=== PATIENT | female | born 1930 | race Caucasian/White ===

== ENCOUNTER → 2017-05-28 | Outpatient (CLI) | payer OTHER, BC | LOC: FIMAGING 10:55 | PROVIDERS: ATTEND Family Medicine Geriatric Medicine | DX: M81.0 Age-related osteoporosis without current pathological fracture (principal) ==

== ENCOUNTER 2017-05-30 10:50 | Emergency (ER) | payer OTHER, BC ==
--- NOTE | 2017-05-30 11:18 | EDPHY ---
H & P Stated Complaint: R foot lac cut on brick yesterday, diabetic on coumadin Source: Patient, Family Exam Limitations: No limitations - Personal History Current Tetanus/Diphtheria Vaccine: Yes Current Tetanus Diphtheria and Acellular Pertussis (TDAP): Yes Tetanus Vaccine Date: 2014 - Medical/Surgical History Hx Asthma: No Hx Chronic Respiratory Disease: No Hx Diabetes: Yes Hx Cardiac Disease: Yes Hx Renal Disease: No Hx Cirrhosis: No Hx Alcoholism: No Hx HIV/AIDS: No Hx Splenectomy or Spleen Trauma: No Other PMH: Afib, Aortic valve replacement, Bypass, Hypothyroidism, High Cholersterol, Depression, NIDDM - Social History Smoking Status: Never smoked HPI/ROS: CHIEF COMPLAINT: Toe injury, laceration HISTORY OF PRESENT ILLNESS: Patient was walking in her garden yesterday afternoon when she stubbed her right great toe. This was on a brick portion of the guarding. She was wearing sandals. She sustained a laceration to the bottom of the right toe. It has been painful with ambulation. Minimal to no pain at rest. No numbness or tingling. No significant bleeding. No fever or chills. History of pre diabetic scenario without any medications. No other associated complaints or modifying factors. REVIEW OF SYSTEMS: Ten systems reviewed and are negative unless otherwise noted in the HPI PAST MEDICAL HISTORY: As reviewed SOCIAL HISTORY: Nonsmoker. Retired. Lives here in [place] FAMILY HISTORY: Noncontributory EXAMINATION General Appearance: Alert, no distress Head: normocephalic, atraumatic Eyes: Pupils equal and round, no conjunctival pallor or injection Respiratory: No respiratory distress or retractions Cardiovascular: Regular rate. Pulses intact distally symmetrically 2+ DP PT pulses Neurological: A&O, nonfocal, normal gait. Normal proprioception of the great toe. Sensory intact of the lower extremities. Skin: Warm and dry, no rash. There is superficial laceration to the plantar surface of the right great toe. This 1.5 cm. No bleeding. No foreign body. No extrusion of subcutaneous tissue. No abrasion or signs of infection. Extremities: Mild tenderness over the right great toe. There is some ecchymosis. Range of motion is intact. No tenderness in the right mid foot or heel. Psychiatric: Mood and affect normal DIFFERENTIAL DIAGNOSES: Including but not limited to toe fracture, sprain, strain, laceration, contusion MDM: 11:18 a.m. Blunt trauma to the right great toe with superficial laceration to the bottom of the toe. There is no foreign body of the plantar surface. There is bruising , thus I have ordered an x-ray. She is neurovascular intact. No active bleeding. 12:50 p.m. X-rays negative for fracture dislocation. Wound has been irrigated and closed with Steri-Strips. I will discharge her home on prophylaxis of antibiotics. Follow up with primary care physician for definitive care. She is comfortable this plan and has return to emergency department precautions. SUPERVISION: Patient was evaluated in conjunction with the supervising physician. Please see their note for details. (Jim Serna) Constitutional: Initial Vital Signs Temperature (C) 36.1 C 05/30/17 10:53 Heart Rate 75 05/30/17 10:53 Respiratory Rate 16 05/30/17 10:53 Blood Pressure 179/53 H 05/30/17 10:53 O2 Sat (%) 90 L 05/30/17 10:53 O2 Delivery Mode Room Air Allergies/Adverse Reactions: adhesive Allergy (Verified 11/01/15 18:38) carbamazepine [From Tegretol] Allergy (Verified 11/01/15 18:38) Sulfa (Sulfonamide Antibiotics) Allergy (Verified 11/01/15 18:38) Home Medications: Medication Instructions Recorded Atorvastatin Calcium [Lipitor 20 20 mg PO HS 07/14/14 mg (*)] Calcium Carbonate [Oyster Shell 500 mg PO HS 07/14/14 Calcium 500 mg (*)] DULoxetine [Cymbalta 30 MG (*)] 30 mg PO HS 07/14/14 Docusate Sodium [Colace 100 MG (*)] 200 mg PO BID 07/14/14 Melatonin [Melatonin 3 MG (*)] 3 mg PO HS 07/14/14 Multivitamins [Multivitamin (*)] 1 each PO DAILY 07/14/14 [place]-3 Fatty Acids [Fish Oil 1000 1,000 mg PO DAILY 07/14/14 mg (*)] Warfarin Sodium [Coumadin 1MG (*)] 1.5 mg PO SUTUWEFRSA@20 10/04/15 Warfarin Sodium [Coumadin 1MG (*)] 2 mg PO MOTH@10/04/15 Sotalol HCl [Betapace 80 MG (*)] 40 mg PO BID #60 tab 10/06/15 Herbals/Supplements -Info Only 1 ea PO DAILY 08/15/16 Levothyroxine [Synthroid 125 mcg 125 mcg PO DAILY06 08/15/16 (*)] Losartan Potassium [Cozaar 50 mg 50 mg PO DAILY 08/15/16 (*)] Acetaminophen [Tylenol 325mg (*)] 650 mg PO Q4HRS PRN #0 tab 08/16/16 Albuterol [Proventil Inhaler HFA 2 puffs IH Q6H #1 mdi 08/16/16 (*)] Benzonatate [Tessalon Pearles] 100 mg PO TID PRN #42 cap 08/16/16 Doxycycline Hyclate [Vibramycin 100 mg PO BID #8 capsule 08/16/16 100 MG (*)] Ipratropium [Atrovent Hfa (*)] 12.9 gm IH Q6H #1 mdi 08/16/16 predniSONE 40 mg PO DAILY 2 Days 08/16/16 Cephalexin [Keflex (*)] 500 mg PO TID #30 cap 05/30/17 Medical Decision Making - Diagnostics Imaging Results: Imaging Impressions Toe X-Ray 05/30/17 11:18 Impression: 1. Negative for fracture. 2. See above report for additional findings. ED Course/Re-evaluation: I did not see this patient while she was in the emergency department. However her care was discussed with the PA while the patient was in the department. I agree with treatment plan and management (Kwaku Huitron) Departure - Departure Disposition: Home, Routine, Self-Care Clinical Impression: Superficial laceration Sprain of toe, great, right Qualifiers: Encounter type: initial encounter Qualified Code(s): S93.501A - Unspecified sprain of right great toe, initial encounter Condition: Good Instructions: Laceration Without Closure (ED) Additional Instructions: 1. Weightbearing as tolerated 2. Follow up primary care physician for wound check in 1-2 days 3. Antibiotics as prescribed Four. Return here for any worsening symptoms Referrals: Andressa Jay MD [Primary Care Provider] - As per Instructions Prescriptions: Cephalexin [Keflex (*)] 500 mg PO TID #30 cap
[2017-05-30 13:20] VITALS: BP 185/57; PULSE 54; RESP 1; TEMP 97.7; O2SAT 94
== END 2017-05-30 13:21 | disposition home or self-care (01) ==
DX: S91.111A Laceration without foreign body of right great toe without damage to nail, initial encounter (principal); S93.501A Unspecified sprain of right great toe, initial encounter; E11.9 Type 2 diabetes mellitus without complications; Z79.01 Long term (current) use of anticoagulants; W22.8XXA Striking against or struck by other objects, initial encounter; Y92.096 Garden or yard of other non-institutional residence as the place of occurrence of the external cause; Y93.01 Activity, walking, marching and hiking

== ENCOUNTER → 2017-06-30 | Outpatient (CLI) | payer OTHER, BC | LOC: BHFA 15:30 | PROVIDERS: ATTEND Internal Medicine Cardiovascular Disease | DX: I48.91 Unspecified atrial fibrillation (principal); I25.10 Atherosclerotic heart disease of native coronary artery without angina pectoris; I35.9 Nonrheumatic aortic valve disorder, unspecified ==

== ENCOUNTER → 2017-08-17 | Outpatient (CLI) | payer OTHER, BC | LOC: BHFA 11:00 | PROVIDERS: ATTEND Internal Medicine Cardiovascular Disease | DX: I48.0 Paroxysmal atrial fibrillation (principal) ==

== ENCOUNTER 2017-09-22 07:53 | Inpatient (IN) | payer OTHER, BC ==
[2017-09-22] MEDS ORDERED: IPRATROPIUM/ALBUTEROL 3 ML DEYVIAL IH ONE (08:19)
[2017-09-22] MEDS ORDERED: methylPREDNISolone SOD SUCC 125 MG/2 ML VIAL IVP ONE (08:19)
--- NOTE | 2017-09-22 08:22 | EDPHY ---
H & P Time Seen by Provider: 09/22/17 08:07 HPI/ROS: CHIEF COMPLAINT: Coughing and weak HISTORY OF PRESENT ILLNESS: Patient is had a cough for the past week. She finished azithromycin on Wednesday. Over the last 24 hours her coughing has become worse, she could not sleep, she feels so weak she can not stand up anymore. Symptoms moderate to severe. Worse with any exertion. Not associated with hemoptysis. She feels only mildly short of breath. She is anticoagulated for an artificial heart valve. REVIEW OF SYSTEMS: Eye: no change in vision ENT: no sore throat Cardiac: no chest pain or syncope Pulmonary: HPI Abdomen: no vomiting, diarrhea, abdominal pain, decreased oral intake Musculoskeletal: no back pain Skin: no rash Neuro: no headache Constitutional: no fever : no urinary symptoms, has coughing continence only A comprehensive 10 point review of systems is otherwise negative aside from elements mentioned in the history of present illness. PAST MEDICAL HISTORY: H&P dated 08/15/2016 personally reviewed. Includes coronary artery disease with bypass surgery, atrial fibrillation, aortic valve replacement, diabetes, hypertension, depression, hyperlipidemia. Previous left leg wound Social history: Here with her son General Appearance: Alert and conversant, cooperative. Eyes: No scleral icterus. ENT, Mouth: Dry mucous membranes. Respiratory: Bilateral expiratory wheezing and rhonchi, decreased chest excursion. Cardiovascular: Irregular rate, 2/6 murmur. Gastrointestinal: Abdomen is soft and non tender. Neurological: Alert and responds normally to questions. Speech fluent. Follows commands. Normally conversant. Generally weak, but able to move all 4 extremities. Skin: Warm and dry, no rashes. Musculoskeletal: No peripheral edema, left leg chronic swelling after treatment for healing wound in the past. Psychiatric: Not agitated. Depressed affect. Emergency Department course/MDM: DuoNeb, IV steroids. Chest x-ray and labs for sepsis screening. Plan for admission for supportive care. 925: Chest x-ray shows lingular infiltrate. Does not have sepsis criteria. Not tachycardic or febrile, does have elevated white blood cell count. IV antibiotics, oxygen, hospital admission. [facility] 929. IV normal saline fluid bolus for hypovolemic hyponatremia, limited to 500 mL because of degree of hyponatremia at 121. Smoking Status: Never smoked Constitutional: Initial Vital Signs Temperature (C) 37 C 09/22/17 07:57 Heart Rate 62 09/22/17 07:57 Respiratory Rate 18 09/22/17 07:57 Blood Pressure 193/56 H 09/22/17 07:57 O2 Sat (%) 91 L 09/22/17 07:57 O2 Delivery Mode Room Air O2 (L/minute) 2 Allergies/Adverse Reactions: adhesive Allergy (Verified 11/01/15 18:38) carbamazepine [From Tegretol] Allergy (Verified 11/01/15 18:38) Sulfa (Sulfonamide Antibiotics) Allergy (Verified 11/01/15 18:38) Home Medications: Medication Instructions Recorded Atorvastatin Calcium [Lipitor 20 20 mg PO DAILY 07/14/14 mg (*)] Calcium Carbonate [Oyster Shell 500 mg PO HS 07/14/14 Calcium 500 mg (*)] DULoxetine [Cymbalta 30 MG (*)] 30 mg PO HS 07/14/14 Docusate Sodium [Colace 100 MG (*)] 100 - 200 mg PO BID 07/14/14 Melatonin [Melatonin 3 MG (*)] 3 mg PO HS 07/14/14 Multivitamins [Multivitamin (*)] 1 each PO DAILY 07/14/14 [place]-3 Fatty Acids [Fish Oil 1000 1,000 mg PO DAILY 07/14/14 mg (*)] Warfarin Sodium [Coumadin 1MG (*)] 1.5 mg PO DAILY16 10/04/15 Sotalol HCl [Betapace 80 MG (*)] 40 mg PO BID #60 tab 10/06/15 Herbals/Supplements -Info Only 1 ea PO DAILY 08/15/16 Levothyroxine [Synthroid 125 mcg 125 mcg PO DAILY06 08/15/16 (*)] Losartan Potassium [Cozaar 50 mg 50 mg PO DAILY 08/15/16 (*)] Benzonatate [Tessalon Pearles] 100 mg PO TID PRN #42 cap 08/16/16 Alendronate Sodium [Fosamax 70 MG 70 mg PO WE@0700 09/22/17 (*)] Codeine Phosphate/Guaifenesin 10 ml PO Q4HRS PRN 09/22/17 [Guaiatussin AC Liquid] Ergocalciferol [Vitamin D2 (*)] 50,000 unit PO Q30D 09/22/17 Loratadine 10 mg PO DAILY 09/22/17 buPROPion [Wellbutrin 75mg (*)] 150 mg PO DAILY 09/22/17 levOFLOXACIN [levAQUIN (*)] 250 mg PO DAILY 09/22/17 predniSONE 20 mg PO DAILY 09/22/17 Medical Decision Making - Diagnostics EKG Interpretation: 12-lead EKG interpreted by me; official reading is in trace master. My interpretation is sinus rhythm with first-degree AV block and QT 496. Imaging Results: Imaging Impressions Chest X-Ray 09/22/17 08:19 Impression: Chronic versus recurrent lingular pneumonia. Differential Diagnosis: Differential diagnosis considered for shortness of breath including but not limited to pulmonary infectious process, COPD, asthma, pulmonary embolus and congestive heart failure. - Data Points Laboratory Results: Laboratory Results 09/22/17 08:42 09/22/17 08:42 09/22/17 09/22/17 09/22/17 08:42 08:42 08:42 WBC RBC Hgb Hct MCV MCH MCHC RDW Plt Count MPV Neut % (Auto) Lymph % (Auto) Wallace % (Auto) Eos % (Auto) Baso % (Auto) Nucleat RBC Rel Count Absolute Neuts (auto) Absolute Lymphs (auto) Absolute Monos (auto) Absolute Eos (auto) Absolute Basos (auto) Absolute Nucleated RBC Immature Gran % Immature Gran # PT 26.9 SEC H SEC (12.0-15.0) INR 2.46 H (0.83-1.16) APTT 38.3 SEC H SEC (23.0-38.0) VBG Lactic Acid Sodium 121 mEq/L L mEq/L (134-144) Potassium 4.3 mEq/L mEq/L (3.5-5.2) Chloride 86 mEq/L L mEq/L (97-110) Carbon Dioxide 24 mEq/l mEq/l (22-31) Anion Gap 11 mEq/L mEq/L (8-16) BUN 18 mg/dL mg/dL (7-23) Creatinine 0.7 mg/dL mg/dL (0.6-1.0) Estimated GFR > 60 Glucose 135 mg/dL H mg/dL (70-100) Serum Osmolality 260 mosmo/kg L mosmo/kg (280-297) Calcium 8.9 mg/dL mg/dL (8.5-10.4) Total Bilirubin 0.9 mg/dL mg/dL (0.1-1.4) 09/22/17 09/22/17 08:42 08:35 WBC 16.73 10^3/uL H 10^3/uL (3.80-9.50) RBC 4.33 10^6/uL 10^6/uL (4.18-5.33) Hgb 13.2 g/dL g/dL (12.6-16.3) Hct 36.8 % L % (38.0-47.0) MCV 85.0 fL fL (81.5-99.8) MCH 30.5 pg pg (27.9-34.1) MCHC 35.9 g/dL g/dL (32.4-36.7) RDW 12.0 % % (11.5-15.2) Plt Count 267 10^3/uL 10^3/uL (150-400) MPV 9.1 fL fL (8.7-11.7) Neut % (Auto) 82.3 % H % (39.3-74.2) Lymph % (Auto) 9.0 % L % (15.0-45.0) Wallace % (Auto) 7.9 % % (4.5-13.0) Eos % (Auto) 0.1 % L % (0.6-7.6) Baso % (Auto) 0.2 % L % (0.3-1.7) Nucleat RBC Rel Count 0.0 % % (0.0-0.2) Absolute Neuts (auto) 13.75 10^3/uL H 10^3/uL (1.70-6.50) Absolute Lymphs (auto) 1.51 10^3/uL 10^3/uL (1.00-3.00) Absolute Monos (auto) 1.33 10^3/uL H 10^3/uL (0.30-0.80) Absolute Eos (auto) 0.02 10^3/uL L 10^3/uL (0.03-0.40) Absolute Basos (auto) 0.03 10^3/uL 10^3/uL (0.02-0.10) Absolute Nucleated RBC 0.00 10^3/uL 10^3/uL (0-0.01) Immature Gran % 0.5 % % (0.0-1.1) Immature Gran # 0.09 10^3/uL 10^3/uL (0.00-0.10) PT INR APTT VBG Lactic Acid 1.7 mmol/L mmol/L (0.7-2.1) Sodium Potassium Chloride Carbon Dioxide Anion Gap BUN Creatinine Estimated GFR Glucose Serum Osmolality Calcium Total Bilirubin Microbiology Results: MICROBIOLOGY 09/22/17 08:45 Nasal, Sinus - Swab Respiratory Panel (PCR) - Final No Organism Detected Medications Given: Albuterol/Ipratropium (Duoneb) 3 ml IH QID [facility]YLER Stop: 03/21/18 11:59 Last Admin: 09/22/17 12:17 Dose: Not Given Losartan Potassium (Cozaar) 50 mg PO DAILY [facility] Stop: 03/21/18 10:42 Last Admin: 09/22/17 13:07 Dose: 50 mg Discontinued Medications Albuterol/Ipratropium (Duoneb) 3 ml IH EDNOW ONE Stop: 09/22/17 08:20 Last Admin: 09/22/17 08:44 Dose: 3 ml Azithromycin 500 mg/ Dextrose 255 mls @ 255 mls/hr IV EDNOW ONE PRN Reason: Protocol Stop: 09/22/17 10:28 Last Admin: 09/22/17 10:27 Dose: Not Given Ceftriaxone Sodium/Dextrose (Rocephin 1 Gm (Premix)) 50 mls @ 100 mls/hr IV EDNOW ONE PRN Reason: Protocol Stop: 09/22/17 09:58 Last Admin: 09/22/17 09:59 Dose: 50 mls Sodium Chloride (Ns) 500 mls @ 1,000 mls/hr IV EDNOW ONE PRN Reason: Protocol Stop: 09/22/17 09:58 Last Admin: 09/22/17 09:58 Dose: 500 mls Methylprednisolone Sodium Succinate (Solu-Medrol) 125 mg IVP EDNOW ONE Stop: 09/22/17 08:20 Last Admin: 09/22/17 08:44 Dose: 125 mg Departure - Departure Disposition: [facility] In[facility] Acute Clinical Impression: Hyponatremia Pneumonia Qualifiers: Pneumonia type: due to unspecified organism Laterality: left Lung location: unspecified part of lung Qualified Code(s): J18.9 - Pneumonia, unspecified organism Condition: Good
--- NOTE | 2017-09-22 08:41 | CPEKG ---
Heart Rate: 59 RR Interval: 1017 P-R Interval: 220 QRSD Interval: 106 QT Interval: 496 QTC Interval: 492 P Thornton: -82 QRS Thornton: 87 T Wave Thornton: 80 EKG Severity - ABNORMAL ECG - EKG Impression: SINUS OR ECTOPIC ATRIAL RHYTHM EKG Impression: FIRST DEGREE AV BLOCK EKG Impression: NONSPECIFIC T ABNORMALITIES, ANT-LAT LEADS EKG Impression: BORDERLINE PROLONGED QT INTERVAL Electronically Signed By: Judah Qureshi 22-Sep-2017 09:43:43
[2017-09-22 08:46] LABS: % IMMATURE GRANULYOCYTES 0.5 % (0.0-1.1); ABSOLUTE IMMATURE GRANULOCYTES 0.09 10^3/uL (0.00-0.10); ADD DIFF? NO; ADD MORPH? NO; ADD SCAN? NO; ATYPICAL LYMPHOCYTE FLAG 0 (0-99); FRAGMENT RBC FLAG 0 (0-99); HEMATOCRIT 36.8 % (38.0-47.0); HEMOGLOBIN 13.2 g/dL (12.6-16.3); LEFT SHIFT FLG 0 (0-99); LIPEMIA HEMOLYSIS FLAG 90 (0-99); MEAN CELL HEMOGLOBIN 30.5 pg (27.9-34.1); MEAN CELL HEMOGLOBIN CONCENTR. 35.9 g/dL (32.4-36.7); MEAN PLATELET VOLUME 9.1 fL (8.7-11.7); PLATELET CLUMPS FLAG 0 (0-99); PLATELET COUNT 267 10^3/uL (150-400); RED BLOOD CELL COUNT 4.33 10^6/uL (4.18-5.33)
[2017-09-22 09:09] LABS: ANION GAP 11 mEq/L (8-16); BILIRUBIN,TOTAL 0.9 mg/dL (0.1-1.4); CALCIUM 8.9 mg/dL (8.5-10.4); CARBON DIOXIDE 24 mEq/l (22-31); CHLORIDE 86 mEq/L (97-110); CREATININE 0.7 mg/dL (0.6-1.0); GLOMERULAR FILTRATION RATE > 60; GLUCOSE 135 mg/dL (70-100); POTASSIUM 4.3 mEq/L (3.5-5.2); SODIUM 121 mEq/L (134-144)
[2017-09-22 09:19] LABS: INR 2.46 (0.83-1.16); PROTIME(PATIENT) 26.9 SEC (12.0-15.0)
[2017-09-22 09:20] LABS: APTT 38.3 SEC (23.0-38.0)
[2017-09-22] MEDS ORDERED: ACETAMINOPHEN 325 MG TAB PO PRN (09:29)
[2017-09-22] MEDS ORDERED: AZITHROMYCIN IV 500 MG in D5W 250 ML IV ONE (09:29)
[2017-09-22] MEDS ORDERED: ONDANSETRON DISINTEGRATING 4 MG TAB PO PRN (09:29)
[2017-09-22] MEDS ORDERED: NS 500 ML IV ONE (09:29)
[2017-09-22] MEDS ORDERED: ONDANSETRON 4 MG/2 ML VIAL IVP PRN (09:29)
[2017-09-22] MEDS ORDERED: ALBUTEROL 3 ML DEYVIAL IH PRN (09:29)
[2017-09-22 10:16] LABS: COLOR YELLOW; LEUKOCYTE ESTERASE,URINE NEGATIVE (NEGATIVE); NITRITE,URINE NEGATIVE (NEGATIVE)
[2017-09-22 10:23] LABS: MUCUS TRACE /lpf (NONE-1+)
--- NOTE | 2017-09-22 11:10 | GHP ---
[f rep st] HISTORY AND PHYSICAL DATE OF ADMISSION: 09/22/2017 CHIEF COMPLAINT: Weakness and cough. HISTORY OF PRESENT ILLNESS: This is an 87-year-old female with a history of coronary artery disease and atrial fibrillation, as well as a bioprosthetic aortic valve, who presents with complaints of 5 days of progressing cough, shortness of breath, and fatigue. Patient describes subjective fevers and myalgias. Was seen in the outpatient setting and started on azithromycin, which appeared to not help her symptoms. The patient has progressively had decreased p.o. intake and now is weak in the knees, as she described. Patient denies any falls at home. Denies any nausea, vomiting, diarrhea, dysuria, hematuria. Denies lower extremity edema or any rashes. Describes worsening cough, productive of slightly discolored sputum with associated runny nose. Denies sore throat. PAST MEDICAL HISTORY: 1. Coronary artery disease, status post CABG. 2. Atrial fibrillation, status post cardioversion x2. 3. Bioprosthetic aortic valve replacement. 4. Diastolic heart failure. 5. Diabetes mellitus. 6. Hypertension. 7. Hyperlipidemia. 8. Depression. FAMILY HISTORY: Positive for coronary disease. SOCIAL HISTORY: Patient lives independently. Does not smoke, drink, or use illicit drugs. ADVANCE DIRECTIVES: Patient wishes to be full cor/full tube. Her son would be her medical decision-maker. REVIEW OF SYSTEMS: A 10-point review of systems is negative with the exception of that reported in the HPI. PHYSICAL EXAMINATION: VITAL SIGNS: Blood pressure 198/56, heart rate 62, respiratory rate 18, 91% on room air, 37.0. GENERAL: This is a pleasant elderly female in no acute distress. HEENT: Notable for dry mucous membranes. Eyes negative for any icterus. CARDIAC: Regular rate and rhythm. A systolic murmur is appreciated. PULMONARY: Diminished breath sounds at bilateral bases. No rales or rhonchi are appreciated. GASTROINTESTINAL: Positive bowel sounds. ABDOMEN: Soft and nontender. MUSCULOSKELETAL: Negative for any lower extremity edema. Patient has an old wound of the left lower extremity. NEUROLOGIC: Alert and oriented x3. PSYCHIATRIC: Pleasant and cooperative on interview and examination. DATA: White count is 16.7, hematocrit 36.8, platelets 267, creatinine 0.7. INR 2.46. Sodium is 121. Previous baselines are normal. Chest x-ray, which I personally reviewed and interpreted, shows a possible lingular infiltrate. ASSESSMENT AND PLAN: This is an 87-year-old female, presenting with shortness of breath, cough, and fatigue. 1. Community-acquired pneumonia: Patient appears to have a lingular infiltrate on chest x-ray. Symptoms consistent with pneumonia. No leukocytosis. Will admit and initiate ceftriaxone IV as patient has recently completed a course of azithromycin. Blood cultures have been sent from the emergency department. Will send a respiratory viral panel, as well. 2. Acute hyponatremia: Based on history, suspect this is hypovolemic in nature. Will send stat urine evaluation for sodium and calcium. Patient has received 500 cc of normal saline in the emergency department. Will recheck her BMP in a couple hours on the medical floor and continue fluid resuscitation based on the workup. 3. Coronary artery disease: Patient does not have chest pain complaints at this time. Will continue her home medications once reconciled. 4. Aortic valve replacement: Will continue patient's chronic anticoagulation. 5. Atrial fibrillation: Will continue patient's sotalol. 6. Hypertension: Patient's blood pressures are poorly controlled. Will continue her home medications. Add p.r.n. medications in addition. 7. Hypothyroidism: Will continue her Synthroid replacement at home dosing. PROPHYLAXIS: Full-dose anticoagulation. DIET: Cardiac. DISPOSITION: I expect greater than 2 midnights as the patient is an 87-year-old , presenting with community-acquired pneumonia and hyponatremia. Discussed the case with the emergency room physician. Patient will be triaged to the medical- surgical floor for care. /[id number]/MODL MTDD
[2017-09-22] MEDS ORDERED: LABETALOL HCL 5 MG/ML 20 ML MDV IVP PRN (11:40)
[2017-09-22] MEDS ORDERED: IOPAMIDOL (ISOVUE 370) 100 ML BTL IV ONE ×2 (11:49→12:06)
--- NOTE | 2017-09-22 11:51 | PDMN ---
Medical Necessity Medical necessity: C/M review: est > 2 MN LOS for eval and TX of acute community acquired pneumonia, acute hyponatremia, requiring planned echocardiogram, ongoing IV Ceftriaxone, Duonebs, pulse oximetry, cardiac monitoring, acute inpt PT/OT/ST, comorbid CAD S/P CABG, atrial fibrillation, hypertension, hypothyroidism, hx bioprosthetic aortic valve replacement, diastolic heart failure, diabetes, hyperlipidemia, depression per H/P.
[2017-09-22 12:07] LABS: ANION GAP 11 mEq/L (8-16); CALCIUM 8.4 mg/dL (8.5-10.4); CARBON DIOXIDE 21 mEq/l (22-31); CHLORIDE 87 mEq/L (97-110); CREATININE 0.7 mg/dL (0.6-1.0); GLOMERULAR FILTRATION RATE > 60; GLUCOSE 138 mg/dL (70-100); POTASSIUM 4.2 mEq/L (3.5-5.2)
[2017-09-22 12:12] LABS: SODIUM 119 mEq/L (134-144)
[2017-09-22] MEDS: IPRATROPIUM/ALBUTEROL 3 ML DEYVIAL IH SCH ×3 (12:17→22:05)
[2017-09-22] MEDS ORDERED: guaiFENesin/CODEINE PHOS 10 ML UDCUP PO PRN (12:30)
[2017-09-22] MEDS: LOSARTAN POTASSIUM 50 MG TAB PO SCH (13:07)
--- NOTE | 2017-09-22 15:01 | HOSPPROG ---
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 - SBP 220's from the ER - cont home meds - cont prn labetalol # Acute Hyponatremia - repeat BMP NA 121-> 119 after 500cc NS in ED - stat urine studies from admit still pending sodium behaving more like SIADH - with acute drop after IVF - hold additional IVF - repeat BMP now - Nephrology consulted I spent > 45 minutes critical care time with this patient evaluating for stroke alert and transferring to SDU Subjective: denied CP Objective: Vital Signs Temp Pulse Resp BP Pulse Ox 36.6 C 64 14 169/60 H 97 09/22/17 10:25 09/22/17 14:06 09/22/17 14:06 09/22/17 14:06 09/22/17 14:06 Laboratory Results 09/22/17 11:45 09/21/17 09/22/17 09/23/17 05:59 05:59 05:59 Intake Total 500 Balance 500 PT 26.9 SEC (12.0-15.0) H 09/22/17 08:42 INR 2.46 (0.83-1.16) H 09/22/17 08:42 - Physical Exam Constitutional: uncomfortable Eyes: anicteric sclera Ears, Nose, Mouth, Throat: dry mucous membranes Cardiovascular: regular rate and rhythym, systolic murmur Respiratory: no respiratory distress Gastrointestinal: normoactive bowel sounds Genitourinary: no bladder fullness Skin: warm Musculoskeletal: No asymmetric calves Neurologic: other (garbled speech - disorientation), No AAOx3, No facial droop Psychiatric: No interacting appropriately Lymph, Heme, Immunologic: no cervical LAD ICD10 Worksheet Patient Problems: Problems Problem Status Onset Pneumonia Acute Bronchitis Acute CHF (congestive heart failure) Acute Chronic Disease Mgmt/Transitional Care Acute Hypoxia Acute
--- NOTE | 2017-09-22 15:16 | GCON ---
[f rep st] CONSULTATION NEUROLOGY CONSULTATION DATE OF CONSULTATION: 09/22/2017 REFERRING PHYSICIAN: Savana Rios MD CHIEF COMPLAINT: Inpatient stroke alert followup. HISTORY OF PRESENT ILLNESS: The patient is a very pleasant 87-year-old lady who was just admitted earlier this morning through the emergency department for significant medical problems including pneumonia and hyponatremia down to 119. In addition, the patient has had a hypertensive emergency with blood pressures over 200. In the setting of being admitted to the ICU shortly after admission, the patient had a spike in blood pressure over 200 and, in this setting, along with underlying pneumonia and hyponatremia, she had difficulty speaking. An inpatient stroke alert was called. CT of the head, along with CTA of the head and neck did not show any luminal thrombus, large vessel or occlusive disease. In addition, the patient has a history of atrial fibrillation status post cardioversion and is on warfarin at home. Her initial INR was therapeutic at 2.46. REVIEW OF SYSTEMS: Ten-point review of systems could not be completed due to the patient's mental status. For past medical history, social history, family history, allergies home medications please see Dr. Rios's note. PHYSICAL EXAMINATION: VITAL SIGNS: Blood pressure is currently 169/66. She is afebrile. Respirations 14. GENERAL: The patient is awake, alert, but appears to have significant comprehension problems. She could follow commands 1 /5, names 0/5 and repeat 0/5. She also had a moderate volume of spontaneous verbal output. CRANIAL NERVE: Her eyes were symmetric. Normal extraocular movements. No facial weakness. MOTOR: I could not detect any drift or focal weakness; however, the entire exam is limited by the patient's language disturbance. IMPRESSION AND PLAN: 1. Query stroke. 2. Pneumonia. 3. Hyponatremia. 4. Hypertensive crisis. 5. History of Atrial Fibrillation with therapeutic INR (on warfarin) The patient's clinical history and neurologic exam may be consistent with aphasia syndrome either due to an under global encephalopathy from her multiple medical conditions or a secondary focal left hemisphere stroke. Her INR is therapeutic. There was no large vessel occlusion on angiography of the head and neck. Therefore, she is not a candidate for IV tPA or mechanical thrombectomy. She will have slow, smooth reduction and normalization of her blood pressure. She will continue anticoagulation. There was no hemorrhage noted on head CT without contrast. We will obtain an MRI brain to visualize any acute infarct to help give the patient and her family more accurate neurologic prognosis. We will follow up on the recommendations above. Thank you for this consultation. Seventy total minutes on the floor today, reviewing records, imaging, and coordination of care. /[id number]/MODL MTDD
[2017-09-22 15:34] LABS: ANION GAP 12 mEq/L (8-16); CALCIUM 8.4 mg/dL (8.5-10.4); CARBON DIOXIDE 21 mEq/l (22-31); CHLORIDE 84 mEq/L (97-110); CREATININE 0.7 mg/dL (0.6-1.0); GLOMERULAR FILTRATION RATE > 60; GLUCOSE 169 mg/dL (70-100); POTASSIUM 3.9 mEq/L (3.5-5.2)
[2017-09-22 15:37] LABS: SODIUM 117 mEq/L (134-144)
[2017-09-22] MEDS ORDERED: ALTEPLASE 2 MG VIAL IVP PRN (15:43)
--- NOTE | 2017-09-22 16:22 | ECHO ---
[email or web address] [address] [address] Main: [phone] Fax: Transthoracic Echocardiogram Name: DANELLE BERG MR#: [id number] Study Date: 09/22/2017 Study Time: 01:02 PM Date of : 1930 Age: 87 year(s) Height: 157.5 cm (62 in.) Weight: 65.77 kg (145 lb.) BSA: 1.67 m2 Gender: Female Examination: Echo Indication: Ischemic Stroke with Bubble, Hx of AVR Image Quality: Contrast: Requested by: Savana Rios BP: 188 mmHg/42 mmHg Heart Rate: Rhythm: Normal sinus rhythm Indication: Ischemic Stroke with Bubble, Hx of AVR Procedure Staff Capability Lead: Andrew Guan Reading Physician: Wiliam Farmer Requesting Provider: Conclusions: Normal size left ventricle. Mild concentric LV hypertrophy. Normal global systolic LV function. EF is 68 %. No regional wall motion abnormality. An agitated saline study was performed and was negative for intracardiac shunting. Mild mitral valve leaflet calcification is present. Mild to moderate mitral regurgitation. The aortic valve is a bioprosthesis. Mild aortic valve regurgitation is present. No pericardial effusion. Compared to the previous exam of June There has been no significant changes. No evidence of a PFO by bubble study.. Measurements: Chambers Valvular Assessment AV/MV Valvular Assessment TV/PV Normal Normal Normal Name Value Range Name Value Range Name Value Range Ao Ban (MM): 2.6 cm (2.2 cm-3.7 AV Vmax: 2.44 m/s (1 m/s-1.7 PV Vmax: 0.92 m/s (0.6 m/s-0.9 cm) m/s) m/s) IVSd (2D): 1.2 cm (0.6 cm-1.1 AV maxP mmHg ( - ) PV PGmax: 3 mmHg ( - ) cm) AV meanP mmHg ( - ) LVDd (2D): 4.8 cm (3.9 cm-5.3 LVOT Vmax: 0.89 m/s (0.7 m/s-1.1 cm) m/s) LVDs (2D): 3.0 cm (2.1 cm-4 CAROLA (Vmax): 0.8 cm2 ( - ) cm) CAROLA (VTI): 0.9 cm ( - ) LVPWd (2D): 1.3 cm ( - ) AR (PHT): 767 ms ( - ) LVOTd 1.7 cm 1.7 cm mm MV E Vmax: 1.23 m/s ( - ) LVEF (2D): 68 (>=54 %) MV A Vmax: 0.82 m/s ( - ) MV E/A: 1.50 ( - ) Patient: DANELLE BERG Study Date: 09/22/2017 Page 1 of 2 01:02 PM MV meanP mmHg ( - ) MVA (Vmax): 1.7 m/s ( - ) Continued Measurements: Chambers Valvular Assessment AV/MV Name Value Name Value LADs Lon.6 cm MV Annulus: 3.1 cm LA Area: 18.5 cm2 MV VTI: 31.30 cm LA Volume: 56 ml MR ERO: 0.220 cm2 LA Volume Index: 33.5 ml/m2 MR PISA radius: 7 mm MR Reg. Volume: 43 ml MR Reg. Fraction: 18 % AR Vmax: 3.34 cm/s Findings: Left Ventricle: Normal size left ventricle. Mild concentric LV hypertrophy. Normal global systolic LV function. EF is 68 %. No regional wall motion abnormality. Right Ventricle: Normal size right ventricle. Left Atrium: The left atrium is normal in size. An agitated saline study was performed and was negative for intracardiac shunting. Right Atrium: The right atrium is normal in size. Mitral Valve: Mild mitral valve leaflet calcification is present. Mild to moderate mitral regurgitation. MR ERO .22cm2 with a MR Fraction of 18% Aortic Valve: Mild aortic valve regurgitation is present. The aortic valve is a bioprosthesis. Normal functioning aortic valve prosthesis. The prosthetic aortic valve is normal. Mild prosthesis regurgitation. Tricuspid Valve: The tricuspid valve is normal in appearance and function. There is no tricuspid valve regurgitation. Pulmonic Valve: The pulmonic valve is normal in appearance and function. Aorta: The aorta is normal. Pericardium: No pericardial effusion. Exam Comments: Compared to the previous exam of June There has been no significant changes. No evidence of a PFO by bubble study.. (No Signature Object) Patient: DANELLE BERG Study Date: 09/22/2017 Page 2 of 2 01:02 PM [id number]
[2017-09-22] MEDS: niCARdipine/NACL 200 ML IV SCH (17:04)
[2017-09-22] MEDS: WARFARIN SODIUM 1 MG TAB PO SCH (17:22)
--- NOTE | 2017-09-22 18:39 | HOSPPROG ---
Hospitalist Progress Note Assessment/Plan: Called from RN with increased confusion, more combative. 1 episode of incontinence Spoke with Dr. Zavala. Labs: Na 121-->119-->117. Urine Na 94, Osm 544. Baseline na 135-138. Not on diuretic A&P: 1. Symptomatic hyponatremia: labs c/w SIADH. Given worsening mental status, will give hypertonic saline 50cc/hr x 2hrs and repeat BMP. Will then do q4hr BMP. Place huang for accurate I/Os. 2. Agitation: restraints. No benzos. Can trial Haldol if needed Objective: Vital Signs Temp Pulse Resp BP Pulse Ox 36.6 C 63 19 158/46 H 96 09/22/17 10:25 09/22/17 18:18 09/22/17 18:18 09/22/17 18:18 09/22/17 18:18 09/21/17 09/22/17 09/23/17 05:59 05:59 05:59 Intake Total 508.4 Balance 508.4 PT 26.9 SEC (12.0-15.0) H 09/22/17 08:42 INR 2.46 (0.83-1.16) H 09/22/17 08:42 ICD10 Worksheet Patient Problems: Problems Problem Status Onset Hyponatremia Acute Pneumonia Acute Bronchitis Acute CHF (congestive heart failure) Acute Chronic Disease Mgmt/Transitional Care Acute Hypoxia Acute
[2017-09-22] MEDS ORDERED: SODIUM Cl 3% 500 ML IV SCH ×2 (18:45→23:30)
[2017-09-22 18:58] LABS: ANION GAP 11 mEq/L (8-16); CALCIUM 8.2 mg/dL (8.5-10.4); CARBON DIOXIDE 22 mEq/l (22-31); CHLORIDE 84 mEq/L (97-110); CREATININE 0.7 mg/dL (0.6-1.0); GLOMERULAR FILTRATION RATE > 60; GLUCOSE 174 mg/dL (70-100); POTASSIUM 3.8 mEq/L (3.5-5.2)
[2017-09-22 18:59] LABS: SODIUM 117 mEq/L (134-144)
[2017-09-22 22:32] LABS: ANION GAP 8 mEq/L (8-16); CALCIUM 7.9 mg/dL (8.5-10.4); CARBON DIOXIDE 23 mEq/l (22-31); CHLORIDE 86 mEq/L (97-110); CREATININE 0.9 mg/dL (0.6-1.0); GLOMERULAR FILTRATION RATE 59; GLUCOSE 149 mg/dL (70-100); POTASSIUM 3.9 mEq/L (3.5-5.2)
[2017-09-22 22:34] LABS: SODIUM 117 mEq/L (134-144)
[2017-09-22] MEDS: CALCIUM CARBONATE 500 MG TAB PO SCH (22:38)
[2017-09-22] MEDS: guaiFENesin 600 MG TAB.ER PO SCH (22:38)
[2017-09-22] MEDS: DOCUSATE SODIUM 100 MG CAP PO SCH (22:38)
[2017-09-22] MEDS: MELATONIN 3 MG TAB PO SCH (22:38)
[2017-09-22] MEDS: DULoxetine 30 MG CAP PO SCH (22:38)
[2017-09-22] MEDS: SOTALOL HCL 80 MG TAB PO SCH (22:38)
[2017-09-23 00:41] LABS: ANION GAP 8 mEq/L (8-16); CALCIUM 7.9 mg/dL (8.5-10.4); CARBON DIOXIDE 24 mEq/l (22-31); CHLORIDE 87 mEq/L (97-110); CREATININE 0.9 mg/dL (0.6-1.0); GLOMERULAR FILTRATION RATE 59; GLUCOSE 130 mg/dL (70-100); POTASSIUM 4.1 mEq/L (3.5-5.2)
[2017-09-23 00:58] LABS: SODIUM 119 mEq/L (134-144)
[2017-09-23] MEDS ORDERED: HALOPERIDOL LACT 5 MG/ML INJ IVP ONE ×2 (03:17→04:30)
[2017-09-23] MEDS: niCARdipine/NACL 200 ML IV SCH (04:41)
[2017-09-23] MEDS: IPRATROPIUM/ALBUTEROL 3 ML DEYVIAL IH SCH ×4 (04:49→21:17)
[2017-09-23] MEDS: LEVOTHYROXINE 125 MCG TAB PO SCH (05:25)
[2017-09-23 06:28] LABS: % IMMATURE GRANULYOCYTES 0.6 % (0.0-1.1); ABSOLUTE IMMATURE GRANULOCYTES 0.09 10^3/uL (0.00-0.10); ADD DIFF? NO; ADD MORPH? NO; ADD SCAN? NO; ATYPICAL LYMPHOCYTE FLAG 0 (0-99); FRAGMENT RBC FLAG 0 (0-99); HEMATOCRIT 31.2 % (38.0-47.0); HEMOGLOBIN 11.2 g/dL (12.6-16.3); LEFT SHIFT FLG 0 (0-99); LIPEMIA HEMOLYSIS FLAG 90 (0-99); MEAN CELL HEMOGLOBIN 30.5 pg (27.9-34.1); MEAN CELL HEMOGLOBIN CONCENTR. 35.9 g/dL (32.4-36.7); PLATELET CLUMPS FLAG 10 (0-99); PLATELET COUNT 274 10^3/uL (150-400); RED BLOOD CELL COUNT 3.67 10^6/uL (4.18-5.33); RED CELL DISTRIBUTION WIDTH 12.4 % (11.5-15.2)
[2017-09-23 06:38] LABS: INR 2.38 (0.83-1.16); PROTIME(PATIENT) 26.2 SEC (12.0-15.0)
[2017-09-23 06:52] LABS: ANION GAP 9 mEq/L (8-16); CALCIUM 8.1 mg/dL (8.5-10.4); CARBON DIOXIDE 23 mEq/l (22-31); CHLORIDE 91 mEq/L (97-110); CHOLESTEROL 174 mg/dL (140-220); CHOLESTEROL/HDL RATIO 3.05 RATIO (1.00-4.44); CREATININE 0.9 mg/dL (0.6-1.0); GLOMERULAR FILTRATION RATE 59; GLUCOSE 120 mg/dL (70-100); HIGH DENSITY LIPOPROTEIN 57 mg/dL (40-85); LOW DENSITY LIPOPROTEIN 91 mg/dL (80-100); NON-HIGH DENSITY LIPOPROTEIN 117 mg/dL (90-129); POTASSIUM 4.2 mEq/L (3.5-5.2); SODIUM 123 mEq/L (134-144); TRIGLYCERIDE 131 mg/dL (35-135); VERY LOW DENSITY LIPOPROTEINS 26 mg/dL (8-25)
[2017-09-23] MEDS ORDERED: ENOXAPARIN 40 MG/0.4 ML SYR SC SCH (09:00)
[2017-09-23] MEDS: CETIRIZINE 10 MG TAB PO SCH (10:30)
[2017-09-23] MEDS: buPROPion 75 MG TAB PO SCH (10:30)
[2017-09-23] MEDS: ATORVASTATIN CALCIUM 20 MG TAB PO SCH (10:30)
[2017-09-23] MEDS: DOCUSATE SODIUM 100 MG CAP PO SCH ×2 (10:30→19:40)
[2017-09-23] MEDS: SOTALOL HCL 80 MG TAB PO SCH ×2 (10:31→19:40)
[2017-09-23] MEDS: MULTIVITAMINS 1 EACH TAB PO SCH (10:31)
[2017-09-23] MEDS: guaiFENesin 600 MG TAB.ER PO SCH ×2 (10:31→19:42)
[2017-09-23] MEDS: LOSARTAN POTASSIUM 50 MG TAB PO SCH (10:31)
[2017-09-23] MEDS: OMEGA-3 FATTY ACIDS 1,000 MG CAP PO SCH (10:31)
--- NOTE | 2017-09-23 12:49 | HOSPPROG ---
Hospitalist Progress Note Assessment/Plan: Acute encephalopathy - Considered CVA, CT and CTA neg. This may have been related to her hyponatremia or infection. Symptoms improved today. -MRI tomorrow -Discussed with Dr. Galeas, neurology Hypertensive urgency - required cardene drip for SBP 220's. -wean cardene -resume oral meds -d/w neurology, ok to lower BP to 140-160 PNA - Cont Ceftriaxone, completed Azithro as outpt. 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 Required hypertonic saline overnight, Na improved today and mentation also improved. -3% saline stopped -cont fluid restriction -salt tabs started -q4h Na -renal following, appreciate assistance A fib - INR therapeutic on Coumadin, cont sotalol CAD - stable, no CP. Cont home meds. Bioprosthetic aortic valve Hypothyroidism - cont levothyroxime Full code Dispo - cont inpt Subjective: Pt feels better today. She is quite hard of hearing. Denies DOTY, vision changes, CP or SOB. Not coughing much. No fevers. Decreased appetite. Weak. Objective: Vital Signs Temp Pulse Resp BP Pulse Ox 36.6 C 79 20 177/44 H 96 09/23/17 12:00 09/23/17 12:00 09/23/17 12:00 09/23/17 12:00 09/23/17 12:00 Laboratory Results 09/23/17 06:15 09/23/17 11:13 09/22/17 09/23/17 09/24/17 05:59 05:59 05:59 Intake Total 877.8 Output Total 475 500 Balance 402.8 -500 PT 26.2 SEC (12.0-15.0) H 09/23/17 06:15 INR 2.38 (0.83-1.16) H 09/23/17 06:15 - Physical Exam Constitutional: no apparent distress Eyes: PERRL Ears, Nose, Mouth, Throat: moist mucous membranes Cardiovascular: regular rate and rhythym Respiratory: no respiratory distress, inspiratory crackles Gastrointestinal: normoactive bowel sounds, soft, non-tender abdomen Skin: warm Musculoskeletal: generalized weakness Neurologic: AAOx3 Psychiatric: interacting appropriately ICD10 Worksheet Patient Problems: Problems Problem Status Onset Hyponatremia Acute Pneumonia Acute Bronchitis Acute CHF (congestive heart failure) Acute Chronic Disease Mgmt/Transitional Care Acute Hypoxia Acute
--- NOTE | 2017-09-23 13:01 | NEUROPROG ---
Assessment: 1. Encephalopathy, improving 2. Multiple medical problems 3. History of atrial fibrillation on anticoagulation with therapeutic INR The patient's encephalopathy is improving today. On exam, if the patient can hear me, her comprehension is accurate. She has very poor baseline hearing. I understand from the medical care team that MRI brain is being held off for the time being. That is reasonable to observe her clinically. We will continue to follow p.r.n. If the MRI brain is completed and there are any abnormalities/questions, please do not hesitate to contact the Neurology Service for reassessment. Subjective: Improving mental status Objective: Vital Signs Temp Pulse Resp BP Pulse Ox 36.6 C 79 20 177/44 H 96 09/23/17 12:00 09/23/17 12:00 09/23/17 12:00 09/23/17 12:00 09/23/17 12:00 Laboratory Results 09/23/17 06:15 09/23/17 11:13 09/22/17 09/23/17 09/24/17 05:59 05:59 05:59 Intake Total 877.8 Output Total 475 500 Balance 402.8 -500 PT 26.2 SEC (12.0-15.0) H 09/23/17 06:15 INR 2.38 (0.83-1.16) H 09/23/17 06:15 After I woke up the patient, she was awake and alert She has severe hearing loss which clouded language exam. However, I spoke loud enough today, she named 3/3, followed commands 3/3 35 total minutes floor time; reviewing interim history, diagnostics and coordination of care. Allergies/Adverse Reactions: adhesive Allergy (Verified 11/01/15 18:38) carbamazepine [From Tegretol] Allergy (Verified 11/01/15 18:38) Sulfa (Sulfonamide Antibiotics) Allergy (Verified 11/01/15 18:38)
--- NOTE | 2017-09-23 13:05 | GHP ---
[f rep st] NEPHROLOGY CONSULTATION DATE OF ADMISSION: 09/22/2017 REFERRING PHYSICIAN: Dr. Diallo REASON: Severe hyponatremia. HISTORY OF PRESENT ILLNESS: The patient is an 87-year-old female with a history of diet-controlled diabetes; obesity; atrial fibrillation, on anticoagulation; and depression. She reports having a cough for approximately 1 week. Her friend reports she has been sleeping more than usual. She admits to drinking a less than ideal amount of water, but denies any nausea, vomiting, diarrhea, use of pain medications, confusion at home, weakness in her legs or prior history of low sodium. She presented to the emergency department with these symptoms. She was found on admission to be hyponatremic with a sodium of 121. She was thought to be hypovolemic and given a bolus of 500 cc of normal saline. A chest x-ray showed a lingular infiltrate. She was started on antibiotics. She then developed some left-sided weakness and confusion. A stroke alert was called. She underwent extensive imaging, including angiography of the head and neck, head CT and echocardiogram, none of which revealed any abnormality, including bleeding, stroke, or cardiac thrombus. Her sodium on repeat check was 119 and then 117. Due to her acute decline in mental status, I elected to give her some 3% saline. She received 100 cc bolus followed by 15 cc/hour overnight with improvement in her sodium to 123 this morning. It then dropped to 121 on repeat draw. Her mental status has largely cleared. She was evaluated by Neurology. She really has no major complaints at this time. She also has a history of coronary artery disease, status post CABG as well as an aortic valve replacement. She reports her blood pressures are typically well controlled at home, however, here in the hospital it spikes to greater than 200 in the setting of neurologic changes. She was started on a Cardene drip and slowly lowered down. This was discontinued this morning in her home, antihypertensive medications were resumed. She reports that her Wellbutrin and possibly duloxetine were adjusted within the last month. History is taken from discussion with Dr. Diallo, the patient, review of electronic medical record, all of which I summarized here. PAST MEDICAL HISTORY: Hypertension, normally controlled on medications; depression; hyperlipidemia; left leg wound, status post skin grafting. CURRENT MEDICATIONS: Losartan 50 mg daily, sotalol 40 mg b.i.d., Coumadin, Lipitor 20 mg daily, ceftriaxone 1 g IV daily, oyster shell calcium, Wellbutrin 150 mg daily, Tessalon Perles 100 mg t.i.d., Lipitor 20 mg daily, Zyrtec, Colace , Cymbalta 30 mg at night, Synthroid 125 mcg daily, melatonin, multivitamin, p.r.n. Zofran, omega-3 fish oil. SOCIAL HISTORY: Her son has been here as well as a friend. She denies smoking ever in her life. She does not drink alcohol or use illicit drugs either. She lives independently. REVIEW OF SYSTEMS: 10-system review from ED note reviewed. No changes and otherwise negative in detail. She has had an occasional urinary tract infection , but nothing recently. She did have some chills at home. Her cough was productive of some phlegm which she always swallowed. PHYSICAL EXAMINATION: VITAL SIGNS: Blood pressure 167/68 with a heart rate of 77, respiratory rate of 19, saturating 98% 3 L nasal cannula. GENERAL: Pleasant, awake, and conversive, slightly overweight elderly female lying in bed who appears well kempt. EYES: No scleral icterus. NEUROLOGICAL: Extraocular movements intact. Moves all extremities well. Normal upper extremity strength. No tremors. Normal distal lower extremity strength. I could not elicit patellar deep tendon reflexes. ORAL MUCOSA: Moist. NECK: No lymphadenopathy. No jugular venous distention. HEART: Regular rate and rhythm with a 2/6 systolic murmur mostly at the sternal borders, but also radiating to the carotids. LUNGS: Clear to auscultation bilaterally. ABDOMEN : Distended and tympanitic. There is no umbilicus, but there are no surgical scars. LOWER EXTREMITIES: Without any pitting edema. She has a large bulging part of her left anterior calf where there is skin graft that is nontender and fluctuant. Posterior tib pulses 1+ bilaterally. No edema. SKIN: She has some mild central facial erythema and dryness. No other significant rashes. MUSCULOSKELETAL: No joint swelling or deformities. MENTAL STATUS: She is oriented to year and place. She answers questions appropriately. LABORATORY DATA: Sodium is 121, potassium 4.2, CO2 of 23, BUN 21, creatinine 0.9, glucose 120, calcium 8.1. White count 15.4, hemoglobin 11.2, platelets 274. Urinalysis did show 2+ glucose, 3+ protein, sodium was 92, osmolality was 544. STUDIES: Chest x-ray: I personally reviewed this. It showed a left lingular infiltrate. IMPRESSION AND PLAN: 1. Severe hyponatremia. Possibly symptomatic, although may have had delirium from other causes. She responded nicely to 3% saline overnight. She appears euvolemic. She most likely has syndrome of inappropriate diuretic hormone related to her pneumonia, possibly exacerbated by recent changes in her selective serotonin reuptake inhibitor. At this point, we will fluid restrict her to 1 L per day. Start salt tablets 1 g three times daily and continue every 4-hour sodium checks with a goal sodium of 128 or so by tomorrow morning. I will check a TSH. 2. Altered mental status. Head imaging and neurologic evaluation have been unremarkable. This seems to be a delirium that has largely cleared this morning. Probably related to pneumonia, possibly exacerbated by severe hypertension or her hyponatremia. 3. Severe hypertension. She has improved with a Cardene drip. She has resumed her home medications. I would target a blood pressure around 140 to 160 systolic for now to avoid excessive lowering and possible cerebral hypoperfusion. 4. Atrial fibrillation. Rate appears well controlled. Sotalol resumed. She is on Coumadin. 5. Dipstick proteinuria. I will quantify this to see if this is real. I spent from 11:26 to 11:57 with this patient. /[id number]/MODL MTDD
[2017-09-23] MEDS: WARFARIN SODIUM 1 MG TAB PO SCH (16:07)
--- NOTE | 2017-09-23 16:36 | GCON ---
[f rep st] CONSULTATION PULMONARY CRITICAL CARE CONSULTATION DATE OF CONSULTATION: 09/23/2017 REASON FOR CONSULTATION: Abnormal mental status. HISTORY: The patient is an 87-year-old woman, who was admitted yesterday secondary to shortness of breath and cough associated with malaise. Workup in the emergency department revealed a sodium of 121. Chest x-ray showed a possible lingular infiltrate and antibiotics were initiated. She was admitted, but developed increased confusion and word-finding difficulties, and possibly some left-sided weakness. A stroke alert was called. CT of the head and CT angiogram were unremarkable, as was a cardiac echo. Secondary to her altered mental status, she was admitted to the intensive care unit. Sodium fell to as low as 117. She was given 3% saline with the improvement of sodium into the low 120s. With this, her mental status significantly improved. She has been seen by Neurology. She remains in the intensive care unit. She is off the hypertonic saline. PAST MEDICAL HISTORY: She has multiple medical problems. These include diabetes mellitus, systemic hypertension, depression, coronary artery disease with a history of coronary artery bypass grafting, history of paroxysmal atrial fibrillation, and aortic valve replacement. MEDICATION: On admission included Wellbutrin, p.r.n. guaifenesin with codeine, low-dose levofloxacin, loratadine, Fosamax, Cymbalta, benzonatate, Lipitor, sotalol, Cozaar, Synthroid, Coumadin, prednisone at 20 mg q. day, and melatonin. DRUG ALLERGIES: Sulfa preparations, carbamazepine, adhesive tapes. SOCIAL HISTORY: Alcohol and tobacco are reportedly negative. The patient lives independently. Apparently has family in the area. She is full code, per her wishes. Her son is her POA. REVIEW OF SYSTEMS: 10-point review of systems is negative, except as outlined above. She denies pain or shortness breath. There is no history of thromboembolic disease. PHYSICAL EXAMINATION: GENERAL: Reveals a woman who remains somewhat confused. She is overweight. VITAL SIGNS: Blood pressure is 165/70. Her heart rate 75 , with sinus rhythm on the monitor. Respiratory rate is 18. On 2 L saturations are 98%. She is afebrile. HEENT: Unremarkable for lymphadenopathy or thyromegaly. Mucous membranes are somewhat dry. Oxygen is in place. NECK: There is no lymphadenopathy or thyromegaly. No obvious jugular venous distention. CHEST: Clear bilaterally. There are no wheezes, rales, or rhonchi. There is no evidence of consolidation. HEART: Regular in rate and rhythm. Heart tones are distant. A systolic murmur is present. Valves sound fine. ABDOMEN: Overweight, soft, nontender. Bowel sounds are present. : A Mcclure catheter is in place. Urine is clear. EXTREMITIES: Remarkable for surgical deformity of the left calf. There is trace plus edema. NEUROLOGIC: Nonfocal. She is oriented to person, place, not necessarily to date, although does acknowledge it is Thanksgiving. RADIOLOGIC STUDIES: Reviewed. The chest x-ray shows what appears to be a more chronic scarring process in the lingula. CT scan of the head is as described. LABORATORY: White blood cell count is 15,000, hematocrit 31.2, platelets 274, 000. INR is 2.38. Venous lactate 1.7, sodium 121, potassium 4.2, BUN 21 with a creatinine of 0.9. Glucose is 120. Calcium is 8.1. Urinalysis on admission was negative, urine sodium 92. ASSESSMENT: 1. Abnormal mental status. This is likely multifactorial, but significant contributing factor includes hyponatremia. Her mental status appears to have improved, at least temporarily associated with her sodium being brought back into the low 120s. Other factors include age, underlying mild dementia, et cetera, are likely playing a role. 2. Hypertension. The patient did require Cardene for elevated blood pressures above 200. This has now been weaned. Her usual oral medications are being given. Her increased blood pressures may have been responsible for some of her neurologic changes. 3. Possible pneumonia. This seems less likely, although a vague infiltrate may be present in the retrocardiac area versus atelectasis. She is being treated with ceftriaxone. This will be continued for now. A 7-day course of antibiotics would appear to be indicated. 4. History of other medical problems including coronary artery disease, an aortic valve, atrial fibrillation, and chronic anticoagulation. PLAN: Continued supportive care will be maintained in the intensive care unit. She can be changed to a step-down status. Antihypertensive therapies will be continued. Sodium will be followed closely. Appropriate adjustments in her management will be made based on how her sodium is doing. Currently she is only on a fluid restriction. Renal is following her for the hyponatremia. Antihypertensive therapies will be maintained. Coumadin will be continued. Current antibiotics will be continued and bronchopulmonary therapies will be given as needed. Further neurologic evaluation and studies will be awaited. Laboratory will be followed. Chest x-ray will be repeated in a.m. Further plans and recommendations will be made based on her progress over the next 12-24 hours. /[id number]/MODL MTDD
--- NOTE | 2017-09-23 16:53 | ASMTCMCOM ---
CM Note CM Note Notes: Pt. is an 87-year-old woman admitted due to coughing and weakness, possible PNA. Pt. developed confusion and "word salad" on med/surg floor and a stroke alert was called. Pt. taken to ICU for evaluation. Pt. w/ hyponatremia. Hx. poor hearing ability, CABG, Afib, aortic valve replacement, diabetes, HTN and depression. Pt. has a picc now. Son Doyle apparently lives on the [address] [place], but will be back tomorrow per colleague. Notably, Pt's son has her dog Lola should Pt. ask. Pt. normally lives independently. PT recommended home d/c, but recommendations may change. D/c plan TBD at this time. Date Signed: 09/23/2017 04:52 PM Electronically Signed By:Amanda Spencer LCSW
[2017-09-23] MEDS: DULoxetine 30 MG CAP PO SCH (19:42)
[2017-09-23] MEDS: MELATONIN 3 MG TAB PO SCH (19:42)
[2017-09-23] MEDS: CALCIUM CARBONATE 500 MG TAB PO SCH (19:42)
[2017-09-23] MEDS ORDERED: SODIUM CHLORIDE 1,000 MG TAB PO SCH (21:00)
[2017-09-24] MEDS ORDERED: D5W 1,000 ML IV SCH (02:00)
[2017-09-24 04:06] LABS: % IMMATURE GRANULYOCYTES 0.4 % (0.0-1.1); ABSOLUTE IMMATURE GRANULOCYTES 0.06 10^3/uL (0.00-0.10); ADD DIFF? NO; ADD MORPH? NO; ADD SCAN? NO; ATYPICAL LYMPHOCYTE FLAG 0 (0-99); FRAGMENT RBC FLAG 0 (0-99); HEMATOCRIT 29.7 % (38.0-47.0); HEMOGLOBIN 10.8 g/dL (12.6-16.3); LEFT SHIFT FLG 0 (0-99); LIPEMIA HEMOLYSIS FLAG 90 (0-99); MEAN CELL HEMOGLOBIN 31.8 pg (27.9-34.1); MEAN CELL HEMOGLOBIN CONCENTR. 36.4 g/dL (32.4-36.7); MEAN CELL VOLUME 87.4 fL (81.5-99.8); MEAN PLATELET VOLUME 9.5 fL (8.7-11.7); PLATELET CLUMPS FLAG 0 (0-99); PLATELET COUNT 239 10^3/uL (150-400); RED CELL DISTRIBUTION WIDTH 12.7 % (11.5-15.2)
[2017-09-24 04:11] LABS: ANION GAP 8 mEq/L (8-16); CALCIUM 8.4 mg/dL (8.5-10.4); CARBON DIOXIDE 24 mEq/l (22-31); CHLORIDE 94 mEq/L (97-110); CREATININE 0.8 mg/dL (0.6-1.0); GLOMERULAR FILTRATION RATE > 60; GLUCOSE 113 mg/dL (70-100); POTASSIUM 4.7 mEq/L (3.5-5.2); SODIUM 126 mEq/L (134-144)
[2017-09-24] MEDS: LEVOTHYROXINE 125 MCG TAB PO SCH (05:28)
[2017-09-24] MEDS: IPRATROPIUM/ALBUTEROL 3 ML DEYVIAL IH SCH ×4 (05:54→21:30)
[2017-09-24] MEDS: CETIRIZINE 10 MG TAB PO SCH (08:09)
[2017-09-24] MEDS: ATORVASTATIN CALCIUM 20 MG TAB PO SCH (08:09)
[2017-09-24] MEDS: OMEGA-3 FATTY ACIDS 1,000 MG CAP PO SCH (08:09)
[2017-09-24] MEDS: MULTIVITAMINS 1 EACH TAB PO SCH (08:09)
[2017-09-24] MEDS: DOCUSATE SODIUM 100 MG CAP PO SCH ×2 (08:09→20:14)
[2017-09-24] MEDS: buPROPion 75 MG TAB PO SCH (08:09)
[2017-09-24] MEDS: SOTALOL HCL 80 MG TAB PO SCH ×2 (08:10→20:14)
[2017-09-24] MEDS: LOSARTAN POTASSIUM 50 MG TAB PO SCH (08:10)
[2017-09-24] MEDS: guaiFENesin 600 MG TAB.ER PO SCH ×2 (08:11→20:14)
--- NOTE | 2017-09-24 11:58 | SOAPPROG ---
SOAP Progress Note Assessment/Plan: Assessment: 1. Hyponatremia. 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 TSH normal. Corrected to 129 o/n, stopped Na tabs and lightened fluid restriction. Now Na 125. change FR back to 1.5 L. Can d/c q4h Na checks. 2. AMS. Improving. Still with some memory loss. Trying to keep awake in day. 3. HTN. Still high. Losartan resumed. PRN labetalol. 4. AF. Rate well controlled. On coumadin, sotalol. Plan: 09/24/17 11:56 09/24/17 11:56 09/24/17 11:58 Subjective: Feels confused. Can't remember PCP's name. Objective: Vital Signs Temp Pulse Resp BP Pulse Ox 36.8 C 58 L 14 166/40 H 100 09/24/17 07:47 09/24/17 10:50 09/24/17 10:50 09/24/17 07:47 09/24/17 10:50 Laboratory Results 09/24/17 03:45 09/24/17 08:15 09/23/17 09/24/17 09/25/17 05:59 05:59 05:59 Intake Total 877.8 1705 Output Total 475 2100 Balance 402.8 -395 PT 26.2 SEC (12.0-15.0) H 09/23/17 06:15 INR 2.38 (0.83-1.16) H 09/23/17 06:15 Comfortable but anxious, in bed Neuro - Oriented to place, month, year No gross CN deficits Nl UE strength RRR, no m/g/r CTAB Abdom soft, nt No edema ICD10 Worksheet Patient Problems: Problems Problem Status Onset CHF (congestive heart failure) Acute Chronic Disease Mgmt/Transitional Care Acute Bronchitis Acute Hypoxia Acute Pneumonia Acute Hyponatremia Acute
--- NOTE | 2017-09-24 12:00 | HOSPPROG ---
Hospitalist Progress Note Assessment/Plan: Acute encephalopathy - Consider CVA, CT and CTA neg. This may have been related to her hyponatremia or infection. Symptoms improved today, but still not at baseline. -MRI today Hypertensive urgency - required cardene drip for SBP 220's, since titrated off. SBP's labile (102-180). DBP's low. -cont oral meds -d/w neurology, ok to lower BP to 140-160 PNA - Cont Ceftriaxone, completed Azithro as outpt. 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 Required hypertonic saline overnight, Na improved today and mentation also improved. -3% saline stopped, now on D5W per renal -cont fluid restriction, salt tabs -cont q4h Na -renal following, appreciate assistance A fib - INR therapeutic on Coumadin, cont sotalol CAD - stable, no CP. Cont home meds. Bioprosthetic aortic valve Hypothyroidism - cont levothyroxime Full code Dispo - cont inpt, SDU Subjective: Pt feels tired. Denies DOTY, vision changes or focal weakness. Speech normal. No CP or SOB. Objective: Vital Signs Temp Pulse Resp BP Pulse Ox 36.8 C 58 L 14 166/40 H 100 09/24/17 07:47 09/24/17 10:50 09/24/17 10:50 09/24/17 07:47 09/24/17 10:50 Laboratory Results 09/24/17 03:45 09/24/17 08:15 09/23/17 09/24/17 09/25/17 05:59 05:59 05:59 Intake Total 877.8 1705 Output Total 475 2100 Balance 402.8 -395 PT 26.2 SEC (12.0-15.0) H 09/23/17 06:15 INR 2.38 (0.83-1.16) H 09/23/17 06:15 - Physical Exam Constitutional: no apparent distress Eyes: PERRL Ears, Nose, Mouth, Throat: moist mucous membranes Cardiovascular: regular rate and rhythym Respiratory: no respiratory distress, clear to auscultation Gastrointestinal: normoactive bowel sounds, soft, non-tender abdomen Skin: warm Musculoskeletal: full muscle strength Neurologic: AAOx3, CN II-XII Intact Psychiatric: interacting appropriately ICD10 Worksheet Patient Problems: Problems Problem Status Onset Hyponatremia Acute Pneumonia Acute Bronchitis Acute CHF (congestive heart failure) Acute Chronic Disease Mgmt/Transitional Care Acute Hypoxia Acute
[2017-09-24] MEDS: ENALAPRILAT DIHYDRATE 1.25 MG/ML VIAL IVP PRN ×3 (12:45→23:41)
[2017-09-24 15:23] LABS: ANION GAP 4 mEq/L (8-16); CALCIUM 8.2 mg/dL (8.5-10.4); CARBON DIOXIDE 26 mEq/l (22-31); CHLORIDE 95 mEq/L (97-110); CREATININE 0.8 mg/dL (0.6-1.0); GLOMERULAR FILTRATION RATE > 60; GLUCOSE 90 mg/dL (70-100); POTASSIUM 4.6 mEq/L (3.5-5.2); SODIUM 125 mEq/L (134-144)
--- NOTE | 2017-09-24 15:31 | PDINTPN ---
Mucker Operator Progress Note Assessment/Plan: Assessment: Altered mental status: Clearly improved. However not back to baseline. I am still suspicious of a stroke. MRI pending. Hyponatremia. Sodiums improving, approximately 125 now. Renal following. History of paroxysmal atrial fibrillation, on Coumadin anticoagulation. History of coronary artery disease and CABG. Cardiovascular status stable. Type 2 diabetes: Glucose is normal. Hypertension: Blood pressure somewhat higher today. On her routine outpatient medications as well as p.r.n. coverage. Will add enalapril as needed for systolic blood pressures greater than 160. Plan: Continue care in the ICU for now as step-down. MRI will again be requested. Hopefully this can be done later today. Follow sodiums, maintain a fluid restriction. Follow CBC in laboratory otherwise. Increase mobilization. Subjective: Doing better. Much less confused. Oriented x3. Still having problems with some words. Denies cough or shortness of breath. Objective: Vital Signs Temp Pulse Resp BP Pulse Ox 36.7 C 60 19 162/41 H 97 09/24/17 12:03 09/24/17 12:03 09/24/17 12:03 09/24/17 13:09 09/24/17 12:03 Laboratory Results 09/24/17 03:45 09/24/17 15:00 09/23/17 09/24/17 09/25/17 05:59 05:59 05:59 Intake Total 877.8 1705 Output Total 475 2100 1150 Balance 402.8 -395 -1150 PT 26.2 SEC (12.0-15.0) H 09/23/17 06:15 INR 2.38 (0.83-1.16) H 09/23/17 06:15 Physical Exam - Physical Exam General Appearance: alert, obese, other (Was up walking in the halls earlier.) EENT: PERRL/EOMI, other (On 1-2 L of oxygen) Neck: normal inspection (No obvious JVD, large neck) Respiratory: lungs clear, decreased breath sounds Cardiac/Chest: regular rate, rhythm, other (Distant heart tones) Abdomen: normal bowel sounds, non-tender, soft (Obese) Pelvic Exam: other (Mcclure catheter in place. Good urine output.) Skin: normal color, warm/dry Extremities: other (Postoperative changes over left lower leg, chronic), No pedal edema Neuro/Psych: no motor/sensory deficits (Appears to move extremities equally), cognition abnormalities (Mild word finding and memory issues remain present.) ICD10 Worksheet Patient Problems: Problems Problem Status Onset CHF (congestive heart failure) Acute Chronic Disease Mgmt/Transitional Care Acute Bronchitis Acute Hypoxia Acute Pneumonia Acute Hyponatremia Acute
[2017-09-24] MEDS: WARFARIN SODIUM 1 MG TAB PO SCH (15:58)
[2017-09-24] MEDS: DULoxetine 30 MG CAP PO SCH (20:13)
[2017-09-24] MEDS: CALCIUM CARBONATE 500 MG TAB PO SCH (20:14)
[2017-09-24] MEDS: MELATONIN 3 MG TAB PO SCH (20:14)
[2017-09-25] MEDS: BENZONATATE 100 MG CAP PO PRN (00:12)
[2017-09-25 04:46] LABS: % IMMATURE GRANULYOCYTES 0.5 % (0.0-1.1); ABSOLUTE IMMATURE GRANULOCYTES 0.06 10^3/uL (0.00-0.10); ADD DIFF? NO; ADD MORPH? NO; ADD SCAN? NO; ATYPICAL LYMPHOCYTE FLAG 0 (0-99); FRAGMENT RBC FLAG 0 (0-99); HEMATOCRIT 29.9 % (38.0-47.0); HEMOGLOBIN 10.6 g/dL (12.6-16.3); LEFT SHIFT FLG 0 (0-99); LIPEMIA HEMOLYSIS FLAG 90 (0-99); MEAN CELL HEMOGLOBIN 31.1 pg (27.9-34.1); MEAN CELL HEMOGLOBIN CONCENTR. 35.5 g/dL (32.4-36.7); MEAN CELL VOLUME 87.7 fL (81.5-99.8); MEAN PLATELET VOLUME 9.1 fL (8.7-11.7); PLATELET CLUMPS FLAG 0 (0-99); PLATELET COUNT 217 10^3/uL (150-400); RED BLOOD CELL COUNT 3.41 10^6/uL (4.18-5.33)
[2017-09-25 04:55] LABS: INR 2.68 (0.83-1.16); PROTIME(PATIENT) 28.8 SEC (12.0-15.0)
[2017-09-25 05:04] LABS: ANION GAP 5 mEq/L (8-16); CALCIUM 8.7 mg/dL (8.5-10.4); CARBON DIOXIDE 28 mEq/l (22-31); CHLORIDE 95 mEq/L (97-110); CREATININE 0.8 mg/dL (0.6-1.0); GLOMERULAR FILTRATION RATE > 60; GLUCOSE 85 mg/dL (70-100); POTASSIUM 4.7 mEq/L (3.5-5.2); SODIUM 128 mEq/L (134-144)
[2017-09-25] MEDS: IPRATROPIUM/ALBUTEROL 3 ML DEYVIAL IH SCH ×4 (05:35→19:37)
[2017-09-25] MEDS: LEVOTHYROXINE 125 MCG TAB PO SCH (06:00)
--- NOTE | 2017-09-25 07:20 | HOSPPROG ---
Hospitalist Progress Note Assessment/Plan: Acute encephalopathy - Considered CVA, though CT, CTA and MRI neg. This may have been related to her hyponatremia or infection. Symptoms improved today. Hypertensive urgency - required cardene drip for SBP 220's, since titrated off. SBP's labile (102-180) and requiring PRN IV Labetalol and Enalapril. However , note DBP's low. Suspect she has stiff vessels and will not lower any further than 160's given DBP 30's. -increase oral Losartan -add low dose amlodipine if 2nd oral agent needed -cont prn's for SBP >180 PNA - Cont Ceftriaxone, completed Azithro as outpt. BCX's NGTD. 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 Required hypertonic saline, Na improved today to 128 and mentation slowly improving. -cont fluid restriction, salt tabs -daily Na checks -renal following, appreciate assistance A fib - INR therapeutic on Coumadin, cont sotalol CAD - stable, no CP. Cont home meds. Bioprosthetic aortic valve Hypothyroidism - cont levothyroxime Full code Dispo - cont inpt, SDU Subjective: Pt feels better today, more interactive. She is ambulating in halls. Denies CP or SOB. No DOTY or vision changes. Objective: Vital Signs Temp Pulse Resp BP Pulse Ox 36.8 C 67 18 173/59 H 97 09/25/17 04:00 09/25/17 05:35 09/25/17 05:35 09/25/17 04:00 09/25/17 05:35 Laboratory Results 09/25/17 04:40 09/25/17 04:40 09/24/17 09/25/17 09/26/17 05:59 05:59 05:59 Intake Total 1705 1500 Output Total 2100 2475 Balance -395 -975 PT 28.8 SEC (12.0-15.0) H 09/25/17 04:40 INR 2.68 (0.83-1.16) H 09/25/17 04:40 - Physical Exam Constitutional: no apparent distress Eyes: PERRL Ears, Nose, Mouth, Throat: moist mucous membranes Cardiovascular: regular rate and rhythym Respiratory: no respiratory distress, other (LLL crackles) Gastrointestinal: normoactive bowel sounds, soft, non-tender abdomen Skin: warm Musculoskeletal: generalized weakness Neurologic: AAOx3 Psychiatric: interacting appropriately ICD10 Worksheet Patient Problems: Problems Problem Status Onset Hyponatremia Acute Pneumonia Acute Bronchitis Acute CHF (congestive heart failure) Acute Chronic Disease Mgmt/Transitional Care Acute Hypoxia Acute
--- NOTE | 2017-09-25 07:46 | SOAPPROG ---
SOAP Progress Note Assessment/Plan: Assessment: 1. SIADH Na improving. Cont fluid restriction. Encourage solute intake 2. Pneumonia Clinically improving 3. HTN ARB increased, though I doubt this is going to reduce dramatically. HR slow due to sotalol. Next choice would be CCB. 4. MS changes Seem mild. She is having some hallucinations, although she is A/O times three this am. MRI shows likely small vessel disease Plan: 09/25/17 07:43 Subjective: Appears improved Objective: Vital Signs Temp Pulse Resp BP Pulse Ox 36.8 C 67 18 173/59 H 97 09/25/17 04:00 09/25/17 05:35 09/25/17 05:35 09/25/17 04:00 09/25/17 05:35 Laboratory Results 09/25/17 04:40 09/25/17 04:40 09/24/17 09/25/17 09/26/17 05:59 05:59 05:59 Intake Total 1705 1500 Output Total 2100 2475 Balance -395 -975 PT 28.8 SEC (12.0-15.0) H 09/25/17 04:40 INR 2.68 (0.83-1.16) H 09/25/17 04:40 Physical Exam - Physical Exam General Appearance: no apparent distress Respiratory: lungs clear Cardiac/Chest: bradycardia Extremities: normal inspection Neuro/Psych: oriented x 3 (Notes some visual hallucinations) ICD10 Worksheet Patient Problems: Problems Problem Status Onset Hyponatremia Acute Pneumonia Acute Bronchitis Acute CHF (congestive heart failure) Acute Chronic Disease Mgmt/Transitional Care Acute Hypoxia Acute
[2017-09-25] MEDS: LOSARTAN POTASSIUM 50 MG TAB PO SCH (07:54)
[2017-09-25] MEDS: ATORVASTATIN CALCIUM 20 MG TAB PO SCH (07:57)
[2017-09-25] MEDS: OMEGA-3 FATTY ACIDS 1,000 MG CAP PO SCH (07:57)
[2017-09-25] MEDS: MULTIVITAMINS 1 EACH TAB PO SCH ×2 (07:58→08:00)
[2017-09-25] MEDS: CETIRIZINE 10 MG TAB PO SCH (07:59)
[2017-09-25] MEDS: SOTALOL HCL 80 MG TAB PO SCH ×2 (07:59→20:52)
[2017-09-25] MEDS: buPROPion 75 MG TAB PO SCH (08:00)
[2017-09-25] MEDS: DOCUSATE SODIUM 100 MG CAP PO SCH ×2 (08:00→20:52)
[2017-09-25] MEDS: guaiFENesin 600 MG TAB.ER PO SCH ×2 (08:01→20:52)
--- NOTE | 2017-09-25 13:16 | PDINTPN ---
Microbiology Supervisor Progress Note Assessment/Plan: Assessment: Altered mental status: Continues to improve, close to being back to baseline. MRI negative for stroke. Hyponatremia. Sodiums improving, approximately 128 now. On fluid restriction. Renal following. History of paroxysmal atrial fibrillation, on Coumadin anticoagulation. History of coronary artery disease and CABG. Cardiovascular status stable. Type 2 diabetes: Glucose is normal. Hypertension: Blood pressure elevated at times to over 200. Losartan increase , on sotalol as well plus p.r.n. coverage with enalapril. Plan: Can transferred to a medical-surgical bed. Continue to work with PT/OT. Follow sodiums, maintain a fluid restriction. Follow CBC and laboratory. Continue antihypertensive treatments. Disposition: Likely will need SNF. 20 minutes of critical care time spent directly with the patient. Discussed with nursing, hospitalist, ICU multi disciplinary team. Subjective: Doing well, feeling better. Up walking in the halls. Less confused. Has an occasional cough, some mucus Objective: Vital Signs Temp Pulse Resp BP Pulse Ox 36.6 C 60 14 166/32 H 98 09/25/17 12:00 09/25/17 12:00 09/25/17 12:00 09/25/17 12:00 09/25/17 12:00 Laboratory Results 09/25/17 04:40 09/25/17 04:40 09/24/17 09/25/17 09/26/17 05:59 05:59 05:59 Intake Total 1705 1500 Output Total 2100 2475 100 Balance -395 -975 -100 PT 28.8 SEC (12.0-15.0) H 09/25/17 04:40 INR 2.68 (0.83-1.16) H 09/25/17 04:40 CXR yesterday: Some retrocardiac haziness, question infiltrate versus atelectasis Physical Exam - Physical Exam General Appearance: alert, no apparent distress EENT: PERRL/EOMI, other (On room air) Neck: normal inspection (No obvious JVD) Respiratory: lungs clear (Anteriorly), decreased breath sounds (At bases), No rales, No rhonchi (But some mild congestion at the left base. No consolidation. ), No wheezing Cardiac/Chest: regular rate, rhythm Abdomen: normal bowel sounds, non-tender, soft Skin: normal color, warm/dry Extremities: No pedal edema Neuro/Psych: no motor/sensory deficits (Moves all extremities well, able to ambulate with walker), cognition abnormalities (Improved/resolved.) ICD10 Worksheet Patient Problems: Problems Problem Status Onset CHF (congestive heart failure) Acute Chronic Disease Mgmt/Transitional Care Acute Bronchitis Acute Hypoxia Acute Pneumonia Acute Hyponatremia Acute
[2017-09-25 14:57] LABS: ANION GAP 6 mEq/L (8-16); CALCIUM 8.6 mg/dL (8.5-10.4); CARBON DIOXIDE 24 mEq/l (22-31); CHLORIDE 93 mEq/L (97-110); CREATININE 0.9 mg/dL (0.6-1.0); GLOMERULAR FILTRATION RATE 59; GLUCOSE 97 mg/dL (70-100); POTASSIUM 4.4 mEq/L (3.5-5.2); SODIUM 123 mEq/L (134-144)
--- NOTE | 2017-09-25 15:29 | ASMTCMCOM ---
CM Note CM Note Notes: Spoke w/pt re; dc to SNF. Pt would like referral sent to [facility], referral faxed. DC Plan: SNF Date Signed: 09/25/2017 03:29 PM Electronically Signed By:Diamond Damon RN
[2017-09-25] MEDS: WARFARIN SODIUM 1 MG TAB PO SCH (15:51)
[2017-09-25] MEDS: SODIUM CHLORIDE 1,000 MG TAB PO SCH ×2 (15:51→20:51)
[2017-09-25] MEDS: ENALAPRILAT DIHYDRATE 1.25 MG/ML VIAL IVP PRN (16:00)
[2017-09-25 20:08] LABS: ANION GAP 7 mEq/L (8-16); CALCIUM 8.7 mg/dL (8.5-10.4); CARBON DIOXIDE 26 mEq/l (22-31); CHLORIDE 93 mEq/L (97-110); CREATININE 0.8 mg/dL (0.6-1.0); GLOMERULAR FILTRATION RATE > 60; GLUCOSE 180 mg/dL (70-100); POTASSIUM 4.5 mEq/L (3.5-5.2); SODIUM 126 mEq/L (134-144)
[2017-09-25] MEDS: DULoxetine 30 MG CAP PO SCH (20:51)
[2017-09-25] MEDS: CALCIUM CARBONATE 500 MG TAB PO SCH (20:52)
[2017-09-25] MEDS: MELATONIN 3 MG TAB PO SCH (20:52)
[2017-09-26] MEDS: BENZONATATE 100 MG CAP PO PRN ×2 (01:44→20:39)
[2017-09-26] MEDS: IPRATROPIUM/ALBUTEROL 3 ML DEYVIAL IH SCH ×4 (05:59→20:54)
[2017-09-26] MEDS: LEVOTHYROXINE 125 MCG TAB PO SCH (06:02)
[2017-09-26 06:25] LABS: INR 2.68 (0.83-1.16); PROTIME(PATIENT) 28.8 SEC (12.0-15.0)
[2017-09-26 06:32] LABS: ANION GAP 6 mEq/L (8-16); CALCIUM 8.5 mg/dL (8.5-10.4); CARBON DIOXIDE 25 mEq/l (22-31); CHLORIDE 95 mEq/L (97-110); CREATININE 0.8 mg/dL (0.6-1.0); GLOMERULAR FILTRATION RATE > 60; GLUCOSE 83 mg/dL (70-100); POTASSIUM 4.4 mEq/L (3.5-5.2); SODIUM 126 mEq/L (134-144)
[2017-09-26] MEDS: ENALAPRILAT DIHYDRATE 1.25 MG/ML VIAL IVP PRN ×3 (07:23→22:21)
--- NOTE | 2017-09-26 08:41 | SOAPPROG ---
SOAP Progress Note Assessment/Plan: Assessment: 1. SIADH Na dropped yesterday. We tightened her fluid restriction, and added NaCl tabs. She is also now doing better with her Ensure intake. She obviously still has SIADH, and will need good solute intake to excrete a water load. If she goes home on NaCl tabs, she will also need to be on low dose loop diuretic. 2. Pneumonia Clinically improving 3. HTN ARB increased, with some response. HR slow due to sotalol. Next choice would be increase in CCB. I would be happy though to keep her in the 150's at present. 4. MS changes This appears better today. Plan: 09/25/17 07:43 09/26/17 08:38 Subjective: Doing better Objective: Vital Signs Temp Pulse Resp BP Pulse Ox 36.5 C 56 L 16 158/62 H 93 09/26/17 07:36 09/26/17 07:36 09/26/17 07:36 09/26/17 07:36 09/26/17 07:36 Laboratory Results 09/25/17 04:40 09/26/17 06:05 09/25/17 09/26/17 09/27/17 05:59 05:59 05:59 Intake Total 1500 1050 680 Output Total 2475 100 200 Balance -975 950 480 PT 28.8 SEC (12.0-15.0) H 09/26/17 06:05 INR 2.68 (0.83-1.16) H 09/26/17 06:05 Physical Exam - Physical Exam General Appearance: no apparent distress Respiratory: lungs clear Cardiac/Chest: regular rate, rhythm Extremities: pedal edema Neuro/Psych: normal mood/affect, oriented x 3 ICD10 Worksheet Patient Problems: Problems Problem Status Onset Hyponatremia Acute Pneumonia Acute Bronchitis Acute CHF (congestive heart failure) Acute Chronic Disease Mgmt/Transitional Care Acute Hypoxia Acute
[2017-09-26] MEDS: guaiFENesin 600 MG TAB.ER PO SCH ×2 (09:34→20:36)
[2017-09-26] MEDS: DOCUSATE SODIUM 100 MG CAP PO SCH ×2 (09:34→20:37)
[2017-09-26] MEDS: CETIRIZINE 10 MG TAB PO SCH (09:35)
[2017-09-26] MEDS: LOSARTAN POTASSIUM 50 MG TAB PO SCH (09:35)
[2017-09-26] MEDS: ATORVASTATIN CALCIUM 20 MG TAB PO SCH (09:35)
[2017-09-26] MEDS: MULTIVITAMINS 1 EACH TAB PO SCH (09:36)
[2017-09-26] MEDS: OMEGA-3 FATTY ACIDS 1,000 MG CAP PO SCH (09:36)
[2017-09-26] MEDS: SODIUM CHLORIDE 1,000 MG TAB PO SCH ×3 (09:41→20:36)
[2017-09-26] MEDS: buPROPion 75 MG TAB PO SCH (10:05)
[2017-09-26] MEDS: SOTALOL HCL 80 MG TAB PO SCH ×2 (12:07→20:36)
--- NOTE | 2017-09-26 15:42 | HOSPPROG ---
Hospitalist Progress Note Assessment/Plan: Acute encephalopathy - Considered CVA, though CT, CTA and MRI neg. This may have been related to her hyponatremia or infection. Symptoms improving. Hypertensive urgency - required cardene drip for SBP 220's, since titrated off. SBP's labile (102-180) and requiring PRN IV Labetalol and Enalapril. However , note DBP's low. Suspect she has stiff vessels and will not lower any further than 160's given DBP 30's. -increased oral Losartan -add low dose amlodipine if 2nd oral agent needed -cont prn's for SBP >180 PNA - Cont Ceftriaxone, day 4/. Completed Azithro as outpt. BCX's NGTD. 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 Required hypertonic saline, Na drifting back down to 123. -cont fluid restriction, salt tabs, encouraged solute intake -daily Na checks -renal following, appreciate assistance A fib - INR therapeutic on Coumadin, cont sotalol CAD - stable, no CP. Cont home meds. Bioprosthetic aortic valve Hypothyroidism - cont levothyroxime Full code Dispo - cont inpt, needs SNF Subjective: Pt feels better. More awake, alert, but tired today. No CP or SOB. No hunt. No N/V. Objective: Vital Signs Temp Pulse Resp BP Pulse Ox 36.7 C 60 18 174/43 H 95 09/26/17 11:36 09/26/17 11:42 09/26/17 11:42 09/26/17 11:36 09/26/17 11:42 Laboratory Results 09/25/17 04:40 09/26/17 06:05 09/25/17 09/26/17 09/27/17 05:59 05:59 05:59 Intake Total 1500 1050 530 Output Total 2475 100 200 Balance -975 950 330 PT 28.8 SEC (12.0-15.0) H 09/26/17 06:05 INR 2.68 (0.83-1.16) H 09/26/17 06:05 - Physical Exam Constitutional: no apparent distress Eyes: PERRL Ears, Nose, Mouth, Throat: moist mucous membranes Cardiovascular: regular rate and rhythym Respiratory: no respiratory distress, clear to auscultation Gastrointestinal: normoactive bowel sounds, soft, non-tender abdomen Skin: warm Musculoskeletal: generalized weakness Neurologic: AAOx3 Psychiatric: interacting appropriately ICD10 Worksheet Patient Problems: Problems Problem Status Onset Hyponatremia Acute Pneumonia Acute Bronchitis Acute CHF (congestive heart failure) Acute Chronic Disease Mgmt/Transitional Care Acute Hypoxia Acute
[2017-09-26] MEDS: WARFARIN SODIUM 1 MG TAB PO SCH (16:15)
[2017-09-26] MEDS: MELATONIN 3 MG TAB PO SCH (20:36)
[2017-09-26] MEDS: CALCIUM CARBONATE 500 MG TAB PO SCH (20:36)
[2017-09-26] MEDS: DULoxetine 30 MG CAP PO SCH (20:39)
[2017-09-27 05:14] LABS: ANION GAP 7 mEq/L (8-16); CALCIUM 8.9 mg/dL (8.5-10.4); CARBON DIOXIDE 25 mEq/l (22-31); CHLORIDE 96 mEq/L (97-110); CREATININE 0.8 mg/dL (0.6-1.0); GLOMERULAR FILTRATION RATE > 60; GLUCOSE 80 mg/dL (70-100); POTASSIUM 4.6 mEq/L (3.5-5.2); SODIUM 128 mEq/L (134-144)
[2017-09-27] MEDS: IPRATROPIUM/ALBUTEROL 3 ML DEYVIAL IH SCH ×4 (05:48→21:40)
[2017-09-27] MEDS: LEVOTHYROXINE 125 MCG TAB PO SCH (06:19)
[2017-09-27] MEDS: ENALAPRILAT DIHYDRATE 1.25 MG/ML VIAL IVP PRN (06:19)
[2017-09-27 06:55] LABS: INR 2.74 (0.83-1.16); PROTIME(PATIENT) 29.3 SEC (12.0-15.0)
--- NOTE | 2017-09-27 08:47 | SOAPPROG ---
SOAP Progress Note Assessment/Plan: Assessment:Plan: Hyponatremia-due to SIADH -better -up to 128 this am -continue current diet, fluid restriction and salt supplementation -goal is to normalize sodium level -check again in morning Pneumonia-improved -on abx HTN-on ARB and sotalol -follow 09/27/17 08:46 Subjective: stable overnite Objective: Vital Signs Temp Pulse Resp BP Pulse Ox 36.6 C 62 16 164/47 H 95 09/27/17 08:00 09/27/17 08:00 09/27/17 08:00 09/27/17 08:00 09/27/17 08:00 Laboratory Results 09/25/17 04:40 09/27/17 04:17 09/26/17 09/27/17 09/28/17 05:59 05:59 05:59 Intake Total 1050 830 Output Total 100 1300 Balance 950 -470 PT 29.3 SEC (12.0-15.0) H 09/27/17 06:15 INR 2.74 (0.83-1.16) H 09/27/17 06:15 Physical Exam - Physical Exam General Appearance: alert, no apparent distress EENT: normal ENT inspection Neck: normal inspection Respiratory: lungs clear, normal breath sounds, No respiratory distress Cardiac/Chest: regular rate, rhythm, systolic murmur (soft) Abdomen: normal bowel sounds, No distended Back: Normal inspection Skin: normal color, warm/dry Extremities: No swelling Neuro/Psych: no motor/sensory deficits, alert, normal mood/affect ICD10 Worksheet Patient Problems: Problems Problem Status Onset Hyponatremia Acute Pneumonia Acute Bronchitis Acute CHF (congestive heart failure) Acute Chronic Disease Mgmt/Transitional Care Acute Hypoxia Acute
[2017-09-27] MEDS: LOSARTAN POTASSIUM 50 MG TAB PO SCH (09:00)
[2017-09-27] MEDS: CETIRIZINE 10 MG TAB PO SCH (09:01)
[2017-09-27] MEDS: guaiFENesin 600 MG TAB.ER PO SCH ×2 (09:01→20:13)
[2017-09-27] MEDS: DOCUSATE SODIUM 100 MG CAP PO SCH ×2 (09:01→20:13)
[2017-09-27] MEDS: OMEGA-3 FATTY ACIDS 1,000 MG CAP PO SCH (09:01)
[2017-09-27] MEDS: buPROPion 75 MG TAB PO SCH (09:01)
[2017-09-27] MEDS: ATORVASTATIN CALCIUM 20 MG TAB PO SCH (09:01)
[2017-09-27] MEDS: SODIUM CHLORIDE 1,000 MG TAB PO SCH ×3 (09:01→20:13)
[2017-09-27] MEDS: SOTALOL HCL 80 MG TAB PO SCH ×2 (09:02→20:13)
[2017-09-27] MEDS: MULTIVITAMINS 1 EACH TAB PO SCH (09:02)
--- NOTE | 2017-09-27 13:18 | HOSPPROG ---
Hospitalist Progress Note Assessment/Plan: Acute encephalopathy - Considered CVA initially, though CT, CTA and MRI neg. This may have been related to her hyponatremia or infection. Symptoms improving. Hypertensive urgency - required cardene drip for SBP 220's, since titrated off. Isolated systolic htn, suspect she has stiff vessels and thus will tolerate SBP's in 160's. -increased oral Losartan -will add low dose amlodipine given persisent SBP's 190's requiring IV Enalaprilat -cont prn's for SBP >180 PNA - Cont Ceftriaxone, day 6/7. Completed Azithro as outpt. BCX's NGTD. 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 Required hypertonic saline for Na 117, Na back up to 128 now, aiming for 130's given her symptoms in the 120's -cont fluid restriction, salt tabs, encouraged solute intake -daily Na checks -renal following, appreciate assistance A fib - INR therapeutic on Coumadin, cont sotalol CAD - stable, no CP. Cont home meds. Bioprosthetic aortic valve Hypothyroidism - cont levothyroxime Full code Dispo - cont inpt, needs SNF, CM working on dispo options, likely [facility] pending acceptance Subjective: Pt feels ok. Still tired. No N/V/D. No CP, SOB or cough. Weak. Not ambulating much. No fevers. Objective: Vital Signs Temp Pulse Resp BP Pulse Ox 36.5 C 51 L 16 162/69 H 94 09/27/17 12:00 09/27/17 12:00 09/27/17 12:00 09/27/17 12:00 09/27/17 12:00 Laboratory Results 09/25/17 04:40 09/27/17 04:17 09/26/17 09/27/17 09/28/17 05:59 05:59 05:59 Intake Total 1050 830 850 Output Total 100 1300 250 Balance 950 -470 600 PT 29.3 SEC (12.0-15.0) H 09/27/17 06:15 INR 2.74 (0.83-1.16) H 09/27/17 06:15 - Physical Exam Constitutional: no apparent distress Eyes: PERRL Ears, Nose, Mouth, Throat: moist mucous membranes Cardiovascular: regular rate and rhythym Respiratory: no respiratory distress, clear to auscultation Gastrointestinal: normoactive bowel sounds, soft, non-tender abdomen Skin: warm Musculoskeletal: full muscle strength Neurologic: AAOx3 Psychiatric: interacting appropriately ICD10 Worksheet Patient Problems: Problems Problem Status Onset Hyponatremia Acute Pneumonia Acute Bronchitis Acute CHF (congestive heart failure) Acute Chronic Disease Mgmt/Transitional Care Acute Hypoxia Acute
--- NOTE | 2017-09-27 16:20 | ASMTCMCOM ---
CM Note CM Note Notes: 09/27/2017 Case Management Note Son Doyle lives in [place] [phone]. Phone call from son Van Fuller who lives in [place] [phone] and [phone]. Van requested info on referral to [facility]. [facility], [facility] is in the review process. Van had already spoken to Thais this am requesting info on facilities. Thais to review application and contact case management on Wednesday. Faxed Thais new updates. Attempted to meet w/pt who was not in room. Case Management d/c poc: [facility] pending acceptance when medically stable. Case Management to follow. Date Signed: 09/27/2017 04:19 PM Electronically Signed By:Bethany Myers RN
[2017-09-27] MEDS: WARFARIN SODIUM 1 MG TAB PO SCH (16:42)
[2017-09-27] MEDS: BENZONATATE 100 MG CAP PO PRN (20:12)
[2017-09-27] MEDS: CALCIUM CARBONATE 500 MG TAB PO SCH (20:13)
[2017-09-27] MEDS: MELATONIN 3 MG TAB PO SCH (20:13)
[2017-09-27] MEDS: DULoxetine 30 MG CAP PO SCH (20:13)
[2017-09-28] MEDS: ENALAPRILAT DIHYDRATE 1.25 MG/ML VIAL IVP PRN (01:02)
[2017-09-28] MEDS: IPRATROPIUM/ALBUTEROL 3 ML DEYVIAL IH SCH ×4 (05:06→20:37)
[2017-09-28] MEDS: LEVOTHYROXINE 125 MCG TAB PO SCH (05:24)
[2017-09-28 06:14] LABS: ANION GAP 3 mEq/L (8-16); CALCIUM 8.9 mg/dL (8.5-10.4); CARBON DIOXIDE 29 mEq/l (22-31); CHLORIDE 96 mEq/L (97-110); CREATININE 0.8 mg/dL (0.6-1.0); GLOMERULAR FILTRATION RATE > 60; GLUCOSE 86 mg/dL (70-100); POTASSIUM 4.8 mEq/L (3.5-5.2); SODIUM 128 mEq/L (134-144)
[2017-09-28 06:22] LABS: INR 2.6 (0.83-1.16); PROTIME(PATIENT) 28.1 SEC (12.0-15.0)
--- NOTE | 2017-09-28 08:40 | SOAPPROG ---
SOAP Progress Note Assessment/Plan: Assessment:Plan: Hyponatremia-due to SIADH -unchanged -up to 128 this am -continue current diet, fluid restriction and salt supplementation -goal is to normalize sodium level -check again in morning Pneumonia-improved -on abx HTN-on ARB and sotalol -CCB added -follow response to above Dispo-likely to [facility] -up at [facility] this morning with walker -her primary is Dr. Caro, which will provide continuity of care -can monitor Na levels periodically while in rehab 09/28/17 08:37 Subjective: stable overnite Objective: Vital Signs Temp Pulse Resp BP Pulse Ox 36.3 C 65 16 169/50 H 95 09/28/17 07:33 09/28/17 07:33 09/28/17 07:33 09/28/17 07:33 09/28/17 07:33 Laboratory Results 09/25/17 04:40 09/28/17 05:25 09/27/17 09/28/17 09/29/17 05:59 05:59 05:59 Intake Total 830 1600 Output Total 1300 651 Balance -470 949 PT 28.1 SEC (12.0-15.0) H 09/28/17 05:25 INR 2.60 (0.83-1.16) H 09/28/17 05:25 Physical Exam - Physical Exam General Appearance: WD/WN, alert, no apparent distress EENT: normal ENT inspection Neck: normal inspection Respiratory: lungs clear, normal breath sounds, No respiratory distress Cardiac/Chest: regular rate, rhythm, systolic murmur Abdomen: normal bowel sounds, non-tender, soft Skin: normal color, warm/dry Extremities: No swelling Neuro/Psych: no motor/sensory deficits, alert, normal mood/affect, oriented x 3 ICD10 Worksheet Patient Problems: Problems Problem Status Onset Hyponatremia Acute Pneumonia Acute Bronchitis Acute CHF (congestive heart failure) Acute Chronic Disease Mgmt/Transitional Care Acute Hypoxia Acute
[2017-09-28] MEDS: OMEGA-3 FATTY ACIDS 1,000 MG CAP PO SCH (10:02)
[2017-09-28] MEDS: ATORVASTATIN CALCIUM 20 MG TAB PO SCH (10:02)
[2017-09-28] MEDS: CETIRIZINE 10 MG TAB PO SCH (10:02)
[2017-09-28] MEDS: DOCUSATE SODIUM 100 MG CAP PO SCH ×2 (10:02→20:59)
[2017-09-28] MEDS: SOTALOL HCL 80 MG TAB PO SCH ×2 (10:02→21:00)
[2017-09-28] MEDS: guaiFENesin 600 MG TAB.ER PO SCH ×2 (10:03→20:58)
[2017-09-28] MEDS: MULTIVITAMINS 1 EACH TAB PO SCH (10:03)
[2017-09-28] MEDS: SODIUM CHLORIDE 1,000 MG TAB PO SCH ×3 (10:03→20:59)
[2017-09-28] MEDS: buPROPion 75 MG TAB PO SCH (10:04)
[2017-09-28] MEDS: LOSARTAN POTASSIUM 50 MG TAB PO SCH (10:04)
--- NOTE | 2017-09-28 15:44 | HOSPPROG ---
Hospitalist Progress Note Assessment/Plan: # Symptomatic hyponatremia: labs c/w SIADH. Fluid restrict #Acute encephalopathy: resolved #PNA: completed 7-day course abx #Atrial fibrillation: sotalol, INR at goal #Leukocytosis: improving #Bioprosthetic valves: on coumadin #Deconditioning: SNF at DC #Hypothyroidism: LT4 #Hypertensive urgency: initially required Cardene gtt. Losartan. Increase Norvasc to 5mg #DVT ppx: on coumadin #Disp: cont inpt admission with hyponatremia, HTN. requires serial BMP, BP monitoring Subjective: denies SOB, or dizziness Objective: Vital Signs Temp Pulse Resp BP Pulse Ox 36.4 C 60 16 156/49 H 94 09/28/17 15:18 09/28/17 15:18 09/28/17 15:18 09/28/17 15:18 09/28/17 15:18 Laboratory Results 09/25/17 04:40 09/28/17 05:25 09/27/17 09/28/17 09/29/17 05:59 05:59 05:59 Intake Total 830 1600 50 Output Total 1300 651 150 Balance -470 949 -100 PT 28.1 SEC (12.0-15.0) H 09/28/17 05:25 INR 2.60 (0.83-1.16) H 09/28/17 05:25 - Physical Exam Constitutional: no apparent distress Eyes: PERRL Ears, Nose, Mouth, Throat: moist mucous membranes, hard of hearing Cardiovascular: regular rate and rhythym, no murmur, rub, or gallop, No edema Respiratory: no respiratory distress, no rales or rhonchi Gastrointestinal: normoactive bowel sounds, soft, non-tender abdomen Genitourinary: no bladder fullness Skin: warm Musculoskeletal: full muscle strength Neurologic: CN II-XII Intact ICD10 Worksheet Patient Problems: Problems Problem Status Onset Hyponatremia Acute Pneumonia Acute Bronchitis Acute CHF (congestive heart failure) Acute Chronic Disease Mgmt/Transitional Care Acute Hypoxia Acute
[2017-09-28] MEDS: BENZONATATE 100 MG CAP PO PRN (17:11)
[2017-09-28] MEDS: WARFARIN SODIUM 1 MG TAB PO SCH (17:11)
[2017-09-28] MEDS: CALCIUM CARBONATE 500 MG TAB PO SCH (20:59)
[2017-09-28] MEDS: MELATONIN 3 MG TAB PO SCH (20:59)
[2017-09-28] MEDS: DULoxetine 30 MG CAP PO SCH (21:01)
[2017-09-29] MEDS: IPRATROPIUM/ALBUTEROL 3 ML DEYVIAL IH SCH ×3 (05:26→16:34)
[2017-09-29] MEDS: LEVOTHYROXINE 125 MCG TAB PO SCH (06:15)
[2017-09-29 06:33] LABS: HEMATOCRIT 29.1 % (38.0-47.0); HEMOGLOBIN 10.3 g/dL (12.6-16.3); MEAN CELL HEMOGLOBIN 31.6 pg (27.9-34.1); MEAN CELL HEMOGLOBIN CONCENTR. 35.4 g/dL (32.4-36.7); MEAN CELL VOLUME 89.3 fL (81.5-99.8); RED BLOOD CELL COUNT 3.26 10^6/uL (4.18-5.33); RED CELL DISTRIBUTION WIDTH 12.8 % (11.5-15.2)
[2017-09-29 06:51] LABS: INR 2.64 (0.83-1.16); PROTIME(PATIENT) 28.5 SEC (12.0-15.0)
[2017-09-29 07:11] LABS: ANION GAP 7 mEq/L (8-16); CARBON DIOXIDE 25 mEq/l (22-31); CHLORIDE 97 mEq/L (97-110); CREATININE 0.8 mg/dL (0.6-1.0); GLOMERULAR FILTRATION RATE > 60; GLUCOSE 80 mg/dL (70-100); POTASSIUM 4.6 mEq/L (3.5-5.2); SODIUM 129 mEq/L (134-144)
[2017-09-29] MEDS: DOCUSATE SODIUM 100 MG CAP PO SCH ×2 (08:56→21:03)
[2017-09-29] MEDS: guaiFENesin 600 MG TAB.ER PO SCH ×2 (08:56→21:03)
[2017-09-29] MEDS: LOSARTAN POTASSIUM 50 MG TAB PO SCH (08:57)
[2017-09-29] MEDS: OMEGA-3 FATTY ACIDS 1,000 MG CAP PO SCH (08:57)
[2017-09-29] MEDS: CETIRIZINE 10 MG TAB PO SCH (08:57)
[2017-09-29] MEDS: SODIUM CHLORIDE 1,000 MG TAB PO SCH ×3 (08:57→21:04)
[2017-09-29] MEDS: SOTALOL HCL 80 MG TAB PO SCH ×2 (08:58→21:04)
[2017-09-29] MEDS: MULTIVITAMINS 1 EACH TAB PO SCH (08:58)
[2017-09-29] MEDS: ATORVASTATIN CALCIUM 20 MG TAB PO SCH (08:58)
[2017-09-29] MEDS: buPROPion 75 MG TAB PO SCH (08:59)
--- NOTE | 2017-09-29 10:37 | ASMTCMCOM ---
CM Note CM Note Notes: 09/29/2017 Case Management Note Phone call from Ricky from [facility] requesting updates. Faxed over progress notes. Case Management d/c poc: To [facility] when medically stable. Case Management to follow. Date Signed: 09/29/2017 10:37 AM Electronically Signed By:Bethany Myers RN
--- NOTE | 2017-09-29 14:40 | HOSPPROG ---
Hospitalist Progress Note Assessment/Plan: # Symptomatic hyponatremia: labs c/w SIADH. Fluid restrict, salt tabs. Na 129 today #Acute encephalopathy: resolved #PNA: completed 7-day course abx #Atrial fibrillation: sotalol, INR at goal #Leukocytosis: improving #Bioprosthetic valves: on coumadin #Deconditioning: SNF at DC #Hypothyroidism: LT4 #Hypertensive urgency: initially required Cardene gtt. Losartan. Increase Norvasc to 5mg #DVT ppx: on coumadin #Disp: cont inpt admission with hyponatremia, HTN. requires serial BMP, BP monitoring Subjective: No dizziness, CP. Breathing improved Objective: Vital Signs Temp Pulse Resp BP Pulse Ox 36.5 C 57 L 18 178/71 H 91 L 09/29/17 12:00 09/29/17 12:00 09/29/17 12:00 09/29/17 12:00 09/29/17 12:00 Laboratory Results 09/29/17 06:05 09/29/17 06:05 09/28/17 09/29/17 09/30/17 05:59 05:59 05:59 Intake Total 1600 1050 Output Total 651 850 Balance 949 200 PT 28.5 SEC (12.0-15.0) H 09/29/17 06:05 INR 2.64 (0.83-1.16) H 09/29/17 06:05 - Physical Exam Constitutional: no apparent distress Eyes: PERRL Ears, Nose, Mouth, Throat: moist mucous membranes, hard of hearing Cardiovascular: regular rate and rhythym, No edema Respiratory: no respiratory distress Gastrointestinal: normoactive bowel sounds Genitourinary: no bladder fullness Skin: warm Musculoskeletal: full muscle strength Neurologic: AAOx3, CN II-XII Intact ICD10 Worksheet Patient Problems: Problems Problem Status Onset Hyponatremia Acute Pneumonia Acute Bronchitis Acute CHF (congestive heart failure) Acute Chronic Disease Mgmt/Transitional Care Acute Hypoxia Acute
--- NOTE | 2017-09-29 16:12 | SOAPPROG ---
SOAP Progress Note Assessment/Plan: Assessment: 1. Hyponatremia. 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 TSH normal. Corrected to 129, trending up. Continue Na tabs, fluid restriction. OK to d/c if Na 130 tomorrow from renal view. Check BMP periodically at rehab facility to monitor. 2. HTN. Still high. Increase amlodipine to 5mg/d. 4. AF. Rate well controlled. On coumadin, sotalol. Plan: 09/24/17 11:56 09/24/17 11:56 09/24/17 11:58 09/29/17 16:10 Subjective: Still has cough. Very sleepy, wants to nap. No new complaints. Objective: Vital Signs Temp Pulse Resp BP Pulse Ox 36.4 C 59 L 18 178/49 H 97 09/29/17 16:00 09/29/17 16:00 09/29/17 16:00 09/29/17 16:00 09/29/17 16:00 Laboratory Results 09/29/17 06:05 09/29/17 06:05 09/28/17 09/29/17 09/30/17 05:59 05:59 05:59 Intake Total 1600 1050 Output Total 651 850 Balance 949 200 PT 28.5 SEC (12.0-15.0) H 09/29/17 06:05 INR 2.64 (0.83-1.16) H 09/29/17 06:05 Sleeping, easily awoken RRR, no m/g/r CTAB Abdom obese, nontender No LE edema, foot pulses 1+ ICD10 Worksheet Patient Problems: Problems Problem Status Onset CHF (congestive heart failure) Acute Chronic Disease [facility]/Transitional Care Acute Bronchitis Acute Hypoxia Acute Pneumonia Acute Hyponatremia Acute
[2017-09-29] MEDS ORDERED: IPRATROPIUM/ALBUTEROL 3 ML DEYVIAL IH PRN (16:20)
[2017-09-29] MEDS: WARFARIN SODIUM 1 MG TAB PO SCH (16:44)
[2017-09-29] MEDS: CALCIUM CARBONATE 500 MG TAB PO SCH (21:04)
[2017-09-29] MEDS: DULoxetine 30 MG CAP PO SCH (21:04)
[2017-09-29] MEDS: MELATONIN 3 MG TAB PO SCH (21:05)
[2017-09-29] MEDS: ENALAPRILAT DIHYDRATE 1.25 MG/ML VIAL IVP PRN (22:42)
[2017-09-29] MEDS: BENZONATATE 100 MG CAP PO PRN (22:50)
[2017-09-30] MEDS: LEVOTHYROXINE 125 MCG TAB PO SCH (05:26)
[2017-09-30 05:50] LABS: INR 2.36 (0.83-1.16); PROTIME(PATIENT) 25.8 SEC (12.0-15.0)
[2017-09-30 06:01] LABS: ANION GAP 7 mEq/L (8-16); CALCIUM 8.8 mg/dL (8.5-10.4); CARBON DIOXIDE 28 mEq/l (22-31); CHLORIDE 96 mEq/L (97-110); CREATININE 0.8 mg/dL (0.6-1.0); GLOMERULAR FILTRATION RATE > 60; GLUCOSE 87 mg/dL (70-100); POTASSIUM 4.6 mEq/L (3.5-5.2); SODIUM 131 mEq/L (134-144)
[2017-09-30 08:04] VITALS: TEMP 97.6
[2017-09-30] MEDS: guaiFENesin 600 MG TAB.ER PO SCH (08:21)
[2017-09-30] MEDS: OMEGA-3 FATTY ACIDS 1,000 MG CAP PO SCH (08:21)
[2017-09-30] MEDS: LOSARTAN POTASSIUM 50 MG TAB PO SCH (08:21)
[2017-09-30] MEDS: DOCUSATE SODIUM 100 MG CAP PO SCH (08:21)
[2017-09-30] MEDS: SOTALOL HCL 80 MG TAB PO SCH (08:22)
[2017-09-30] MEDS: MULTIVITAMINS 1 EACH TAB PO SCH (08:22)
[2017-09-30] MEDS: ATORVASTATIN CALCIUM 20 MG TAB PO SCH (08:22)
[2017-09-30] MEDS: SODIUM CHLORIDE 1,000 MG TAB PO SCH (08:23)
[2017-09-30] MEDS: BENZONATATE 100 MG CAP PO PRN (08:23)
[2017-09-30] MEDS: CETIRIZINE 10 MG TAB PO SCH (08:23)
[2017-09-30] MEDS: buPROPion 75 MG TAB PO SCH (08:23)
--- NOTE | 2017-09-30 08:47 | PDIAF ---
- Diagnosis Diagnosis: PNA, hyponatremia Code Status: Full Code - Medication Management Discharge Medications: Medications to Continue on Transfer Atorvastatin Calcium [Lipitor 20 mg (*)] 20 mg PO DAILY 07/14/14 [Last Taken ] Calcium Carbonate [Oyster Shell Calcium 500 mg (*)] 500 mg PO HS 07/14/14 [Last Taken 08/14/16] DULoxetine [Cymbalta 30 MG (*)] 30 mg PO HS 07/14/14 [Last Taken 08/14/16] Docusate Sodium [Colace 100 MG (*)] 100 - 200 mg PO BID 07/14/14 [Last Taken 11:00] Melatonin [Melatonin 3 MG (*)] 3 mg PO HS 07/14/14 [Last Taken 08/14/16] Multivitamins [Multivitamin (*)] 1 each PO DAILY 07/14/14 [Last Taken 08/15/16 11:00] [place]-3 Fatty Acids [Fish Oil 1000 mg (*)] 1,000 mg PO DAILY 07/14/14 [Last Taken 08/15/16 11:00] Warfarin Sodium [Coumadin 1MG (*)] 1.5 mg PO DAILY16 10/04/15 [Last Taken 20:00 1.5 mg] Sotalol HCl [Betapace 80 MG (*)] 40 mg PO BID #60 tab 10/06/15 [Last Taken 08/15 11:00 40 mg] Levothyroxine [Synthroid 125 mcg (*)] 125 mcg PO DAILY06 08/15/16 [Last Taken ] Alendronate Sodium [Fosamax 70 MG (*)] 70 mg PO WE@0700 09/22/17 [Last Taken Unknown] Codeine Phosphate/Guaifenesin [Guaiatussin AC Liquid] 10 ml PO Q4HRS PRN [Last Taken Unknown] Ergocalciferol [Vitamin D2 (*)] 50,000 unit PO Q30D 09/22/17 [Last Taken Unknown ] Loratadine 10 mg PO DAILY 09/22/17 [Last Taken Unknown] buPROPion [Wellbutrin 75mg (*)] 150 mg PO DAILY 09/22/17 [Last Taken Unknown] Amlodipine Besylate [Norvasc] 5 mg PO DAILY #30 tablet 09/30/17 [Last Taken Unknown] Losartan Potassium [Cozaar 50 mg (*)] 100 mg PO DAILY tab 09/30/17 [Last Taken Unknown] [place]-3 Fatty Acids [Fish Oil 1000 mg (*)] 1,000 mg PO DAILY cap 09/30/17 [ Last Taken Unknown] Sodium Chloride [Salt Tablet] 1,000 mg PO TID tab 09/30/17 [Last Taken Unknown] Discharge Medications: Refer to the Discharge Home Medication list for PRN reason. - Orders Services needed: Registered Nurse, Certified [employer]er Line Helper, Physical Therapy Diet Recommendation: no restrictions on diet Diet Texture: Regular Texture Diet, Thin Liquids, Meds Whole w/Liquids - Labs/Radiology BMP Date: 10/01/17 PT/INR Date: 10/01/17 - Follow Up Care Current Providers and Referrals: Andressa Jay MD [Primary Care Provider] - As per Instructions
--- NOTE | 2017-09-30 11:11 | ASMTCMCOM ---
CM Note CM Note Notes: Pt is being discharged today to [facility]. CM called Van, son and notified him of pts discharge. Pt will be transported via [facility] at 1PM. ROSA provided ALDAIR Rodriguez w/ phone number to [facility] to give report. CM sent d/c orders to [facility]. CM to follow. Plan: [facility] Date Signed: 09/30/2017 11:11 AM Electronically Signed By:JOSEMANUEL Gonzalez
--- NOTE | 2017-09-30 12:19 | SOAPPROG ---
SOAP Progress Note Assessment/Plan: Assessment: 1. Hyponatremia. 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 TSH normal. Corrected to 131. Continue Na tabs, fluid restriction of 1.5 L after discharge. OK to d/c from renal view. Check BMP periodically (weekly) at rehab facility and send to Dr. Jeff to monitor. If Na corrects to normal can taper off Na tabs and fluid restriction. Left card, she or Dr. Jeff may call for formal visit with us if needed. Will sign off. 2. HTN. Improved after increasing amlodipine to 5mg/d. 3. AF. Rate well controlled. On coumadin, sotalol. Plan: 09/24/17 11:56 09/24/17 11:56 09/24/17 11:58 09/29/17 16:10 09/30/17 12:17 09/30/17 12:19 Subjective: C/o ongoing cough. Anxious to discharge. Objective: Vital Signs Temp Pulse Resp BP Pulse Ox 36.4 C 64 14 155/71 H 84 L 09/30/17 08:00 09/30/17 08:00 09/30/17 08:00 09/30/17 08:00 09/30/17 10:43 Laboratory Results 09/29/17 06:05 09/30/17 05:30 09/29/17 09/30/17 10/01/17 05:59 05:59 05:59 Intake Total 1050 900 300 Output Total 850 1450 425 Balance 200 -550 -125 PT 25.8 SEC (12.0-15.0) H 09/30/17 05:30 INR 2.36 (0.83-1.16) H 09/30/17 05:30 In chair, NAD RRR, no m/g/r CTAB Abdom distended, tympanitic, nontender No LE edema ICD10 Worksheet Patient Problems: Problems Problem Status Onset CHF (congestive heart failure) Acute Chronic Disease Mgmt/Transitional Care Acute Bronchitis Acute Hypoxia Acute Pneumonia Acute Hyponatremia Acute
--- NOTE | 2017-09-30 13:26 | GDS ---
[f rep st] DISCHARGE SUMMARY DISCHARGE DIAGNOSES: 1. Community-acquired pneumonia, 2. Acute encephalopathy. 3. History of atrial fibrillation, on anticoagulation, status post cardioversion x2. 4. History of coronary artery disease, status post coronary artery bypass graft. 5. Bioprosthetic aortic valve replacement. 6. Diastolic heart failure. 7. Diabetes. 8. Hypertension. 9. Hyperlipidemia. 10. Depression. 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 Acute hypoxic resp failure HISTORY: An 87-year-old female with history of coronary artery disease, atrial fibrillation and bioprosthetic aortic valve, presenting with 5 days of cough, shortness of breath, and fatigue. She had some subjective fevers and myalgias. She had decreased p.o. intake, is now weak in the knees. HOSPITAL COURSE BY PROBLEM: 1. Acute hypoxic respiratory failure: due tocommunity-acquired pneumonia; completed a full course antibiotics. Respiratory culture was negative. 2. Hyponatremia: due to SIADH. Nephrology was consulted. Continue fluid restriction and salt tabs. Repeat BMP tomorrow. 3. Coronary artery disease: Status post CABG. Aspirin, no statin. 4. Atrial fibrillation: Continue sotalol. INR is therapeutic. 5. Accelerated hypertension: Uptitrated losartan to 100 mg and added Norvasc at 5 mg. This can be up titrated as needed. 6. Acute encephalopathy: improved. Likely secondary to acute illness. MRI did not show acute stroke. 7. Aortic valve replacement: chronic anticoagulation. 8. Hypothyroidism: Synthroid. Disposition: Patient is stable for discharge to SNF. FOLLOWUP INSTRUCTIONS: 1. Repeat BMP and INR on October 01, 2017. 2. Follow up with [facility]. 3. Follow up with primary care physician. PHYSICAL EXAM ON DAY OF DISCHARGE: VITAL SIGNS: Temperature 36.4, blood pressure 155/71, heart rate in the 60s, respiration 14, 84% on room air, 97% on 2 L. GENERAL: Sitting up in bed, no acute distress. HEENT: PERRLA. EOMI. Hard of hearing. Moist mucous membranes. CARDIOVASCULAR: Regular rate and rhythm. No murmurs, gallops, rubs. LUNGS: Clear, diminished at bases. ABDOMEN: Soft, nontender, nondistended. : No [place]. MUSCULOSKELETAL: 5/5 upper and lower extremity strength. NEUROLOGIC: Cranial nerves 2 through 12 intact. /[id number]/MODL MTDD
[2017-09-30 13:32] VITALS: BP 158/74; PULSE 74; RESP 15; O2SAT 94
--- NOTE | 2017-09-30 15:35 | ASDISCHSUM ---
Discharge Information Plan Status:SNF Medically Cleared to Leave:09/29/2017 Discharge Date:09/30/2017 01:45 PM CM D/C Disposition:[facility] Facility ADT D/C Disposition:[facility] Facility Projected Discharge Date:09/30/2017 11:00 AM Transportation at D/C:Wheelchair Van Discharge Delay Reason: Follow-Up Date:09/30/2017 11:00 AM Discharge Slot: Final Diagnosis: Placement Information Referral Type:*Long Term/SNF Referral ID:[facility]-[id number] Provider Name:[facility] Address 1:[address] Address 2: City:[place] Selection Factors: State:[place] Patient Contact Information Contact Name:EDISON Relationship:Son Address: City: [facility] Phone: [facility]/Zip Code: Email: Financial Information Financial Class: Primary Plan Desc:MEDICARE INPATIENT Primary Plan Number:[id number] Secondary Plan Desc: OUT OF STATE [facility] Secondary Plan Number:[id number] Assessment Information LACE LACE Acuity / Level of Care Answers: Was the patient admitted to hospital via the emergency department? Yes: Comorbidities - select Answers: Diabetes without all that apply complications Emergency dept visits in Answers: 2 last 6 months Score: 6 Date Signed: 09/22/2017 09:38 AM Electronically Signed By:Mai Alonso RN [facility] CM Progress Note CM Note CM Note Notes: Pt. is an 87-year-old woman admitted due to coughing and weakness, possible PNA. Pt. developed confusion and "word salad" on med/surg floor and a stroke alert was called. Pt. taken to ICU for evaluation. Pt. w/ hyponatremia. Hx. poor hearing ability, CABG, Afib, aortic valve replacement, diabetes, HTN and depression. Pt. has a picc now. Son Doyle apparently lives on the [place], but will be back tomorrow per colleague. Notably, Pt's son has her dog Lola should Pt. ask. Pt. normally lives independently. PT recommended home d/c, but recommendations may change. D/c plan TBD at this time. Date Signed: 09/23/2017 04:52 PM Electronically Signed By:Amanda Spencer LCSW [facility] CM Progress Note CM Note CM Note Notes: Spoke w/pt re; dc to SNF. Pt would like referral sent to , referral faxed. DC Plan: SNF Date Signed: 09/25/2017 03:29 PM Electronically Signed By:Diamond Damon RN [facility] CM Progress Note CM Note CM Note Notes: 09/27/2017 Case Management Note Chandra Kwon lives in [place] [phone]. Phone call from son Van Fuller who lives in [place] [phone] and [phone]. Van requested info on referral to [facility]. [facility]. Van had already spoken to Thais this am requesting info on facilities. Thais to review application and contact case management on Wednesday. Faxed Thais new updates. Attempted to meet w/pt who was not in room. Case Management d/c poc: [facility] pending acceptance when medically stable. Case Management to follow. Date Signed: 09/27/2017 04:19 PM Electronically Signed By:Bethany Myers RN [facility] ROSA Progress Note CM Note CM Note Notes: 09/29/2017 Case Management Note Phone call from Ricky from [facility] requesting updates. Faxed over progress notes. Case Management d/c poc: To [facility] when medically stable. Case Management to follow. Date Signed: 09/29/2017 10:37 AM Electronically Signed By:Bethany Myers RN [facility] ROSA Progress Note CM Note CM Note Notes: Pt is being discharged today to [facility]. CM called Van, son and notified him of pts discharge. Pt will be transported via [facility] at 1PM. ROSA provided ALDAIR Rodriguez w/ phone number to [facility] to give report. CM sent d/c orders to [facility]. ROSA to follow. Plan: [facility] Date Signed: 09/30/2017 11:11 AM Electronically Signed By:JOSEMANUEL Gonzalez Intervention Information Intervention Type:*IM-Signed Date of Service:09/30/2017 03:34 PM Patient Type:Inpatient Staff Member:JOSEMANUEL Fish Michelle Hours: Discipline: Severity: Comment:
[2017-10-01] MEDS ORDERED: amLODIPine BESYLATE 5 MG TAB PO SCH (09:00)
== END 2017-09-30 13:45 | DRG 193 ==
LOC: F3E 11:23 → F2N 12:34 → F2W 09-25 21:03
PROVIDERS: ADMIT Hospitalist; ATTEND Hospitalist
PROC: 02HV33Z Insertion of Infusion Device into Superior Vena Cava, Percutaneous Approach (ICD-10-PCS; principal; 2017-09-22)
DX: J18.0 Bronchopneumonia, unspecified organism (principal); J96.01 Acute respiratory failure with hypoxia; E22.2 Syndrome of inappropriate secretion of antidiuretic hormone; E87.1 Hypo-osmolality and hyponatremia; G93.41 Metabolic encephalopathy; I48.0 Paroxysmal atrial fibrillation; Z79.01 Long term (current) use of anticoagulants; I16.0 Hypertensive urgency; I25.10 Atherosclerotic heart disease of native coronary artery without angina pectoris; I50.32 Chronic diastolic (congestive) heart failure; Z95.1 Presence of aortocoronary bypass graft; Z95.3 Presence of xenogenic heart valve; E11.9 Type 2 diabetes mellitus without complications; E66.09 Other obesity due to excess calories; Z68.26 Body mass index [BMI] 26.0-26.9, adult; E78.5 Hyperlipidemia, unspecified; F32.9 Major depressive disorder, single episode, unspecified; E03.9 Hypothyroidism, unspecified; H91.93 Unspecified hearing loss, bilateral
CPT/HCPCS: 92507-GN; 92523-GN; 92610-GN; 96374; 97116-GP; 97161-GP; 97165-GO; 97530-GO; 97530-GP; 97535-GO; C1751; G0463; G8978-GP-CJ; G8979-GP-CI; G8987-GO-CJ; G8988-GO-CI; G8996-GN-CH; G8997-GN-CH; G8998-GN-CH; G9162-GN-CI; G9162-GN-CK; G9163-GN-CH; G9163-GN-CI; G9164-GN-CI; J0456; J0696; J2930; J3490; Q9967

== ENCOUNTER 2017-12-01 02:03 | Emergency (ER) | payer OTHER, BC ==
--- NOTE | 2017-12-01 02:15 | EDPHY ---
H & P HPI/ROS: HPI CHIEF COMPLAINT: Fall, back pain HISTORY OF PRESENT ILLNESS: Patient is a 87-year-old female, history atrial fibrillation on Coumadin, coronary artery disease, presents emergency room after she had a mechanical trip and fall. Patient reports that she fell around 130 in the afternoon or approximately 12 hr ago while she was walking her dog. Patient states she lost her balance she fell backwards directly with head strike and now has upper back pain after falling. Patient states that she fell on some side. She immediately had pain. The pain is persisted this evening so she decided come to the emergency room for evaluation. She resides at the [facility]. 911 was called and she was appropriately transfered here. She denies any chest pain or shortness of breath her main complaint is back pain bilateral scapula and thoracic spine back pain. She denies any cervical spine pain. Does complain of a mild headache. She is on Coumadin. Denies dizziness or focal weakness or focal numbness or tingling. Denies extremity pain or abdominal pain. Past Medical History: Coronary artery disease, diabetes, hypertension, pneumonia, diastolic heart failure, aortic valve Past Surgical History: Aortic valve replacement, coronary artery bypass graft Social History: Resides at the [facility] denies drugs alcohol tobacco. Family History: Noncontributory ROS REVIEW OF SYSTEMS: A comprehensive 10 point review of systems is otherwise negative aside from elements mentioned in the history of present illness. Exam Constitutional appears adequately, frail, otherwise nontoxic triage nursing summary reviewed, vital signs reviewed, awake/alert. Eyes normal conjunctivae and sclera, EOMI, PERRLA. HENT head/neck is atraumatic, normal inspection, atraumatic, moist mucus membranes, no epistaxis, neck supple/ no meningismus, no raccoon eyes. Respiratory clear to auscultation bilaterally, normal breath sounds, no respiratory distress, no wheezing. Cardiovascular rate normal, regular rhythm, no murmur, no edema, distal pulses normal. Gastrointestinal soft, non-tender, no rebound, no guarding, normal bowel sounds, no distension, no pulsatile mass. Genitourinary no CVA tenderness. Musculoskeletal upper back she does have some mild midline thoracic spine pain but no step-offs or crepitus there is no obvious signs of trauma on back exam, mild tenderness palpation paravertebral thoracic spine, no cervical spine pain, no lumbar spine pain., full range of motion, no calf swelling, no tenderness of extremities, no meningismus, good pulses, neurovascularly intact. Skin pink, warm, & dry, no rash, skin atraumatic. Neurologic awake, alert and oriented x 3, AAOx3, moves all 4 extremities equally, motor intact, sensory intact, CN II-XII intact, normal cerebellar, normal vision, normal speech. Psychiatric normal mood/affect. Heme/Lymph/Immune no lymphadenopathy. Differential Diagnosis: Includes but is not limited to in a particular order multiple contusions, compression fracture thoracic spine, spinous rashes fracture, rib fractures, closed head injury, intracranial bleed, subdural, epidural, skull fracture, cervical spine injury Medical Decision Making: Plan for this patient check basic blood work, including coags, CT head and neck for trauma given on Coumadin, thoracic spine x -ray and chest x-ray. Re-evaluate. Re-evaluation: CT scan of the head and neck without contrast are negative for acute traumatic injury. No intracranial bleed. 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 No fracture visualized. Additionally the CT scan of the cervical spine goes into the T-spine region on scanning T1 through T4 unremarkable. X-ray of the chest reviewed. I do not appreciate any traumatic injury or pneumothorax. Image interpreted myself. X-ray of the thoracic spine shows degenerative changes, no evidence of acute compression fracture. Image interpreted by myself. 0504: Re-examination at this time no acute distress. Patient resting comfortably. She ambulated well to the bathroom. I reviewed her blood work, x-rays, CT scans. I do not appreciate acute traumatic injury. Patient would like to go back home which I think is reasonable. She has no chest pain or shortness of breath. Return precautions discussed with her. Source: Patient, EMS - Personal History Tetanus Vaccine Date: 2014 - Medical/Surgical History Hx Asthma: No Hx Chronic Respiratory Disease: No Hx Diabetes: Yes Hx Cardiac Disease: Yes Hx Renal Disease: No Hx Cirrhosis: No Hx Alcoholism: No Hx HIV/AIDS: No Hx Splenectomy or Spleen Trauma: No Other PMH: Afib, Aortic valve replacement, Bypass, Hypothyroidism, High Cholersterol, Depression, NIDDM - Social History Smoking Status: Never smoked Constitutional: Initial Vital Signs Temperature (C) 37.2 C 12/01/17 02:09 Heart Rate 70 12/01/17 02:09 Respiratory Rate 18 12/01/17 02:09 Blood Pressure 138/68 H 12/01/17 02:09 O2 Sat (%) 88 L 12/01/17 02:09 O2 Delivery Mode Nasal Cannula O2 (L/minute) 2 Allergies/Adverse Reactions: adhesive Allergy (Verified 12/01/17 02:09) carbamazepine [From Tegretol] Allergy (Verified 12/01/17 02:09) Sulfa (Sulfonamide Antibiotics) Allergy (Verified 12/01/17 02:09) Home Medications: Medication Instructions Recorded Atorvastatin Calcium [Lipitor 20 20 mg PO DAILY 07/14/14 mg (*)] Calcium Carbonate [Oyster Shell 500 mg PO HS 07/14/14 Calcium 500 mg (*)] DULoxetine [Cymbalta 30 MG (*)] 30 mg PO HS 07/14/14 Docusate Sodium [Colace 100 MG (*)] 100 - 200 mg PO BID 07/14/14 Melatonin [Melatonin 3 MG (*)] 3 mg PO HS 07/14/14 Multivitamins [Multivitamin (*)] 1 each PO DAILY 07/14/14 [place]-3 Fatty Acids [Fish Oil 1000 1,000 mg PO DAILY 07/14/14 mg (*)] Warfarin Sodium [Coumadin 1MG (*)] 1.5 mg PO DAILY16 10/04/15 Sotalol HCl [Betapace 80 MG (*)] 40 mg PO BID #60 tab 10/06/15 Levothyroxine [Synthroid 125 mcg 125 mcg PO DAILY06 08/15/16 (*)] Alendronate Sodium [Fosamax 70 MG 70 mg PO WE@0700 09/22/17 (*)] Codeine Phosphate/Guaifenesin 10 ml PO Q4HRS PRN 09/22/17 [Guaiatussin AC Liquid] Ergocalciferol [Vitamin D2 (*)] 50,000 unit PO Q30D 09/22/17 Loratadine 10 mg PO DAILY 09/22/17 buPROPion [Wellbutrin 75mg (*)] 150 mg PO DAILY 09/22/17 Amlodipine Besylate [Norvasc] 5 mg PO DAILY #30 tablet 09/30/17 Losartan Potassium [Cozaar 50 mg 100 mg PO DAILY tab 09/30/17 (*)] [place]-3 Fatty Acids [Fish Oil 1000 1,000 mg PO DAILY cap 09/30/17 mg (*)] Sodium Chloride [Salt Tablet] 1,000 mg PO TID tab 09/30/17 Medical Decision Making - Data Points Laboratory Results: Laboratory Results 12/01/17 02:55 12/01/17 02:55 12/01/17 12/01/17 12/01/17 02:55 02:55 02:55 WBC 8.93 10^3/uL 10^3/uL (3.80-9.50) RBC 3.51 10^6/uL L 10^6/uL (4.18-5.33) Hgb 10.9 g/dL L g/dL (12.6-16.3) Hct 32.5 % L % (38.0-47.0) MCV 92.6 fL fL (81.5-99.8) MCH 31.1 pg pg (27.9-34.1) MCHC 33.5 g/dL g/dL (32.4-36.7) RDW 13.1 % % (11.5-15.2) Plt Count 254 10^3/uL 10^3/uL (150-400) MPV 9.0 fL fL (8.7-11.7) Neut % (Auto) 57.9 % % (39.3-74.2) Lymph % (Auto) 20.9 % % (15.0-45.0) [place] % (Auto) 14.3 % H % (4.5-13.0) Eos % (Auto) 6.0 % % (0.6-7.6) Baso % (Auto) 0.6 % % (0.3-1.7) Nucleat RBC Rel Count 0.0 % % (0.0-0.2) Absolute Neuts (auto) 5.16 10^3/uL 10^3/uL (1.70-6.50) Absolute Lymphs (auto) 1.87 10^3/uL 10^3/uL (1.00-3.00) Absolute Monos (auto) 1.28 10^3/uL H 10^3/uL (0.30-0.80) Absolute Eos (auto) 0.54 10^3/uL H 10^3/uL (0.03-0.40) Absolute Basos (auto) 0.05 10^3/uL 10^3/uL (0.02-0.10) Absolute Nucleated RBC 0.00 10^3/uL 10^3/uL (0-0.01) Immature Gran % 0.3 % % (0.0-1.1) Immature Gran # 0.03 10^3/uL 10^3/uL (0.00-0.10) PT 32.5 SEC H SEC (12.0-15.0) INR 3.19 H (0.83-1.16) APTT 49.0 SEC H SEC (23.0-38.0) Sodium 140 mEq/L mEq/L (135-145) Potassium 4.6 mEq/L mEq/L (3.5-5.2) Chloride 105 mEq/L mEq/L (97-110) Carbon Dioxide 21 mEq/l L mEq/l (22-31) Anion Gap 14 mEq/L mEq/L (8-16) BUN 31 mg/dL H mg/dL (7-23) Creatinine 0.9 mg/dL mg/dL (0.6-1.0) Estimated GFR 59 Glucose 125 mg/dL H mg/dL (70-100) Calcium 9.5 mg/dL mg/dL (8.5-10.4) Departure - Departure Disposition: Home, Routine, Self-Care Clinical Impression: Fall Qualifiers: Encounter type: initial encounter Qualified Code(s): W19.XXXA - Unspecified fall, initial encounter Condition: Good Instructions: Fall Prevention for Older Adults (ED), Contusion in Adults (ED), Fall Prevention (ED) Additional Instructions: 1. Return emergency room if you have severe pain, chest pain or shortness of breath. Referrals: Andresas Jay MD [Primary Care Provider] - As per Instructions
[2017-12-01 03:02] LABS: PLATELET COUNT 254 10^3/uL (150-400)
[2017-12-01 03:11] LABS: INR 3.19 (0.83-1.16); PROTIME(PATIENT) 32.5 SEC (12.0-15.0)
[2017-12-01 05:39] VITALS: BP 143/74; PULSE 74; RESP 16; TEMP 98.1; O2SAT 92
== END 2017-12-01 05:39 | disposition home or self-care (01) ==
LOC: EDUNIT#
DX: S29.9XXA Unspecified injury of thorax, initial encounter (principal); I10 Essential (primary) hypertension; E11.9 Type 2 diabetes mellitus without complications; I25.10 Atherosclerotic heart disease of native coronary artery without angina pectoris; Z79.01 Long term (current) use of anticoagulants; W01.198A Fall on same level from slipping, tripping and stumbling with subsequent striking against other object, initial encounter; Y93.01 Activity, walking, marching and hiking

== ENCOUNTER 2017-12-08 14:24 | Inpatient (IN) | payer OTHER, BC ==
--- NOTE | 2017-12-08 14:43 | CPEKG ---
Heart Rate: 66 RR Interval: 909 P-R Interval: 240 QRSD Interval: 98 QT Interval: 456 QTC Interval: 478 P [place]: -87 QRS [place]: 52 T Wave [place]: 69 EKG Severity - ABNORMAL ECG - EKG Impression: SINUS OR ECTOPIC ATRIAL RHYTHM EKG Impression: FIRST DEGREE AV BLOCK EKG Impression: Unchanged from previous Electronically Signed By: Bobby Arteaga 08-Dec-2017 15:10:07
--- NOTE | 2017-12-08 15:09 | EDPHY ---
H & P Stated Complaint: epigastric pain/ major depression Time Seen by Provider: 12/08/17 14:57 HPI/ROS: CHIEF COMPLAINT: Depression, anxiety HISTORY OF PRESENT ILLNESS: The patient is an 87-year-old female who recently moved to the [facility] 3 days ago and her doctor decided to change her psychiatric medications. She has discontinued her Wellbutrin and other psychiatric medications which she cannot name but has not yet started the new medications which she also cannot name. She states that today she was talking with a body finisher of hers about her symptoms and the fact that she has been feeling more depressed and occasionally contemplate dying but does not have the means. Her friend suggested that she call an ambulance and come to the hospital. The patient states that nothing has changed acutely. She did mention also to paramedics that she has chest discomfort that she attributes to anxiety. She tells me that she has had this for decades at that is unchanged today. She does have a cardiac history including and aortic valve replacement as well as atrial fibrillation on Coumadin. She denies coronary disease but according to the medical record she has had CABG. She is not concerned about her chest discomfort. She denies shortness of breath. No recent fevers or illness. No GI symptoms REVIEW OF SYSTEMS: Constitutional: denies: chills, fever, recent illness, recent injury EENTM: denies: blurred vision, double vision, nose congestion Respiratory: denies: cough, shortness of breath Cardiac: see HPI denies: irregular heart rate, lightheadedness, palpitations Gastrointestinal/Abdominal: denies: abdominal pain, diarrhea, nausea, vomiting, blood streaked stools Genitourinary: denies: dysuria, frequency, hematuria, pain Musculoskeletal: denies: joint pain, muscle pain Skin: denies: lesions, rash, jaundice, bruising Neurological: denies: headache, numbness, paresthesia, tingling, dizziness, weakness Hematologic/Lymphatic: denies: blood clots, easy bleeding, easy bruising Immunologic/allergic: denies: HIV/AIDS, transplant EXAM: GENERAL: Well-appearing, well-nourished and in no acute distress. HEAD: Atraumatic, normocephalic. EYES: Pupils equal round and reactive to light, extraocular movements intact, sclera anicteric, conjunctiva are normal. ENT: TMs normal, nares patent, oropharynx clear without exudates. Moist mucous membranes. NECK: Normal range of motion, supple without lymphadenopathy or JVD. LUNGS: Breath sounds clear to auscultation bilaterally and equal. No wheezes rales or rhonchi. HEART: Regular rate and rhythm without murmurs, rubs or gallops. ABDOMEN: Soft, nontender, normoactive bowel sounds. No guarding, no rebound. No masses appreciated. BACK: No CVA tenderness, no spinal tenderness, step-offs or deformities EXTREMITIES: Normal range of motion, no pitting or edema. No clubbing or cyanosis. NEUROLOGICAL: Cranial nerves II through XII grossly intact. Normal speech, normal gait. 5/5 strength, normal movement in all extremities, normal sensation PSYCH: Normal mood, normal affect. Answers questions appropriately very honest SKIN: Warm, dry, normal turgor, no visible rashes or lesions. Source: Patient Exam Limitations: No limitations - Personal History Tetanus Vaccine Date: 2014 - Medical/Surgical History Hx Asthma: No Hx Chronic Respiratory Disease: No Hx Diabetes: Yes Hx Cardiac Disease: Yes Hx Renal Disease: No Hx Cirrhosis: No Hx Alcoholism: No Hx HIV/AIDS: No Hx Splenectomy or Spleen Trauma: No Other PMH: Afib, Aortic valve replacement, Bypass, Hypothyroidism, High Cholersterol, major depression, NIDDM, anxiety - Family History Significant Family History: No pertinent family hx - Social History Smoking Status: Never smoked Alcohol Use: None Constitutional: Initial Vital Signs Temperature (C) 36.7 C 12/08/17 14:53 Heart Rate 64 12/08/17 14:53 Respiratory Rate 16 12/08/17 14:53 Blood Pressure 154/33 H 12/08/17 14:53 O2 Sat (%) 97 12/08/17 14:53 O2 Delivery Mode Room Air Allergies/Adverse Reactions: adhesive Allergy (Verified 12/01/17 02:09) carbamazepine [From Tegretol] Allergy (Verified 12/01/17 02:09) Sulfa (Sulfonamide Antibiotics) Allergy (Verified 12/01/17 02:09) Home Medications: Medication Instructions Recorded Atorvastatin Calcium [Lipitor 20 20 mg PO DAILY 07/14/14 mg (*)] Docusate Sodium [Colace 100 MG (*)] 100 - 200 mg PO BID 07/14/14 Melatonin [Melatonin 3 MG (*)] 3 mg PO HS 07/14/14 Warfarin Sodium [Coumadin 1MG (*)] 1.5 mg PO DAILY16 10/04/15 Sotalol HCl [Betapace 80 MG (*)] 40 mg PO BID #60 tab 10/06/15 Levothyroxine [Synthroid 125 mcg 125 mcg PO DAILY06 08/15/16 (*)] Ergocalciferol [Vitamin D2 (*)] 50,000 unit PO Q30D 09/22/17 Amlodipine Besylate [Norvasc] 5 mg PO DAILY #30 tablet 09/30/17 Losartan Potassium [Cozaar 50 mg 100 mg PO DAILY tab 09/30/17 (*)] Medical Decision Making - Diagnostics EKG Interpretation: An EKG obtained and was read and documented in trace view. Please see trace view for full reading and report. Sinus rhythm, first-degree block, no acute ischemic changes, unchanged from previous ED Course/Re-evaluation: The patient is hyponatremic. 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 It is unclear whether not this is contributing to her current symptoms. She will admission to the medical service. She is not currently on a hold. I do not think that one is required. 4:30 p.m. I discussed the case with Dr. Copeland and will admit to the medical service. We agreed not to place the patient on an M1 hold at this point. She is not actively suicidal. She did tell me that sometimes she thinks about dying and wishes to have an easy way to but she does not wish to kill herself or harm herself. Differential Diagnosis: Partial list of the Differential diagnosis considered include but were not limited to; hyponatremia, depression, anxiety, chest pain and although unlikely based on the history and physical exam, I also considered infection, CVA. - Data Points Laboratory Results: Laboratory Results 12/08/17 14:30 12/08/17 14:30 Medications Given: Atorvastatin Calcium (Lipitor) 20 mg PO DAILY TYLER Stop: 06/07/18 08:59 Last Admin: 12/09/17 07:59 Dose: 20 mg Hydralazine HCl (Apresoline) 5 mg IVP Q6HRS PRN PRN Reason: SBP Greater Than 160 Stop: 06/06/18 20:13 Last Admin: 12/09/17 05:41 Dose: 5 mg Levothyroxine Sodium (Synthroid) 125 mcg PO DAILY06 TYLER Stop: 06/07/18 05:59 Last Admin: 12/09/17 05:41 Dose: 125 mcg Lorazepam (Ativan) 0.5 mg PO HS PRN PRN Reason: Sleep/Insomnia Stop: 06/06/18 20:11 Last Admin: 12/08/17 21:11 Dose: 0.5 mg Losartan Potassium (Cozaar) 100 mg PO DAILY TYLER Stop: 06/07/18 08:59 Last Admin: 12/09/17 08:00 Dose: 100 mg Melatonin (Melatonin) 3 mg PO HS TYLER Stop: 06/06/18 20:59 Last Admin: 12/08/17 21:10 Dose: 3 mg Sotalol HCl (Betapace) 40 mg PO BID TYLER Stop: 06/06/18 20:59 Last Admin: 12/09/17 07:59 Dose: 40 mg Discontinued Medications Sodium Chloride (Ns) 500 mls @ 1,000 mls/hr IV EDNOW ONE PRN Reason: Protocol Stop: 12/08/17 17:00 Last Admin: 12/08/17 17:31 Dose: 500 mls Sodium Chloride (Ns) 500 mls @ 50 mls/hr IV ONCE ONE Stop: 12/09/17 06:25 Last Admin: 12/08/17 21:00 Dose: 500 mls Departure - Departure Disposition: [facility] Acute Clinical Impression: Hyponatremia Depression Qualifiers: Depression Type: major depressive disorder Major depression recurrence: recurrent Active/Remission status: currently active Major depression episode severity: moderate Qualified Code(s): F33.1 - Major depressive disorder, recurrent, moderate Condition: Fair
[2017-12-08 15:14] LABS: PLATELET COUNT 304 10^3/uL (150-400)
[2017-12-08] MEDS ORDERED: NS 500 ML IV ONE ×2 (16:31→20:26)
--- NOTE | 2017-12-08 17:03 | ASMTLACE ---
VLADIMIR Acuity / Level of Answers: Yes Care: Did the patient have an inpatient admission? Comorbidities - select Answers: Diabetes (uncontrolled or all that apply controlled) # of Emergency department Answers: 3-4 visits in the last 6 months Social determinants Answers: Mental health diagnosis (anxiety, depression, pers onality disorders, etc.) Score: 10 Date Signed: 12/08/2017 05:02 PM Electronically Signed By:Mai Alonso RN
--- NOTE | 2017-12-08 17:15 | ASMTCMCOM ---
CM Note CM Note Notes: Chart reviewed and met with patient briefly in the ER prior to admission to the floor. Patient has recently moved to [facility]. She has had 2 recent visits/admissions over the past 3 months (see reports) and is "struggling" with depression. She is currently trying to adjust to her recent move from her apartment to [facility] [place] [facility]. Patient is pleasant, oriented X4, and appropriately communicative. Patient is accompanied by a supportive friend. CM available prn discharge planning/resources Date Signed: 12/08/2017 05:14 PM Electronically Signed By:Mai Alonso RN
[2017-12-08] MEDS ORDERED: LORazepam 0.5 MG TAB PO PRN (20:12)
[2017-12-08] MEDS ORDERED: ONDANSETRON 4 MG/2 ML VIAL IVP PRN (20:15)
[2017-12-08] MEDS ORDERED: ALBUTEROL 3 ML DEYVIAL IH PRN (20:15)
[2017-12-08] MEDS ORDERED: ONDANSETRON DISINTEGRATING 4 MG TAB PO PRN (20:15)
--- NOTE | 2017-12-08 20:21 | PDGENHP ---
History and Physical - Chief Complaint anxiety - History of Present Illness The patient is an 87-year-old female who recently moved to the [place] and 3 days ago her doctor changed off her psychiatric medications. She has discontinued her Wellbutrin and other psychiatric medications which she cannot name but has not yet started the new medications which she also cannot name. She states that today she was talking with a sales support specialist of hers about her symptoms and the fact that she has been feeling more depressed and occasionally contemplate dying but does not have any plans. Her friend suggested that she call an ambulance and come to the hospital. In the E.D. she was found not have any active suicidal ideations. She was not placed on a mental hold. She does have hyponatremia and was found to have slight dehydration. she was given IVF. She reports little intake over the past few days. She also reported some chest pain in the E.D. that is worse when she is anxious. She has had this for many weeks. She does not have any cp at this time. Its not exertional. Trop was negatie. EKG did not show acute findings. Other than her anxiety and lack of oral intake, she describes having a low energy state. She does not have any other specific complaints. She denies palpitations, leg swelling, fever, n/v/d, urinary sx's. She does not feel weak Labs: slight Leukocytosis, Hyponatremia PMH: Afib, Aortic valve replacement, Bypass, Hypothyroidism, High Cholersterol, major depression, NIDDM, anxiety - Family History Significant Family History: No pertinent family hx - Social History Smoking Status: Never smoked Alcohol Use: None Constitutional: History Information - Allergies/Home Medication List Allergies/Adverse Reactions: adhesive Allergy (Verified 12/01/17 02:09) carbamazepine [From Tegretol] Allergy (Verified 12/01/17 02:09) Sulfa (Sulfonamide Antibiotics) Allergy (Verified 12/01/17 02:09) Home Medications: Atorvastatin Calcium [Lipitor 20 mg (*)] 20 mg PO DAILY 07/14/14 [Last Taken 05/18] Docusate Sodium [Colace 100 MG (*)] 100 - 200 mg PO BID 07/14/14 [Last Taken 11:00] Melatonin [Melatonin 3 MG (*)] 3 mg PO HS 07/14/14 [Last Taken 12/07/17] Warfarin Sodium [Coumadin 1MG (*)] 1.5 mg PO DAILY16 10/04/15 [Last Taken ] Levothyroxine [Synthroid 125 mcg (*)] 125 mcg PO DAILY06 08/15/16 [Last Taken ] Ergocalciferol [Vitamin D2 (*)] 50,000 unit PO Q30D 09/22/17 [Last Taken ] I have personally reviewed and updated: medical history, social history - Social History Smoking Status: Never smoked Alcohol Use: None Review of Systems Review of Systems: ROS: 10pt was reviewed & negative except for what was stated in HPI & below Physical Exam Physical Exam: Temp Pulse Resp BP Pulse Ox 36.4 C 63 18 178/76 H 93 12/08/17 19:30 12/08/17 19:30 12/08/17 19:30 12/08/17 19:30 12/08/17 19:30 Constitutional: no apparent distress Eyes: PERRL Ears, Nose, Mouth, Throat: hearing normal, dry mucous membranes Cardiovascular: regular rate and rhythym, systolic murmur, No edema Respiratory: reduced air movement Gastrointestinal: normoactive bowel sounds Genitourinary: no bladder fullness Skin: warm Neurologic: AAOx3 Psychiatric: interacting appropriately, not anxious, not encephalopathic Lymph, Heme, Immunologic: No petechiae Lab Data & Imaging Review 12/08/17 14:30 12/08/17 14:30 WBC 10.52 10^3/uL (3.80-9.50) H 12/08/17 14:30 RBC 3.92 10^6/uL (4.18-5.33) L 12/08/17 14:30 Hgb 12.1 g/dL (12.6-16.3) L 12/08/17 14:30 Hct 35.7 % (38.0-47.0) L 12/08/17 14:30 MCV 91.1 fL (81.5-99.8) 12/08/17 14:30 MCH 30.9 pg (27.9-34.1) 12/08/17 14:30 MCHC 33.9 g/dL (32.4-36.7) 12/08/17 14:30 RDW 12.6 % (11.5-15.2) 12/08/17 14:30 Plt Count 304 10^3/uL (150-400) 12/08/17 14:30 MPV 9.3 fL (8.7-11.7) 12/08/17 14:30 Neut % (Auto) 69.1 % (39.3-74.2) 12/08/17 14:30 Lymph % (Auto) 16.9 % (15.0-45.0) 12/08/17 14:30 Stanley % (Auto) 9.3 % (4.5-13.0) 12/08/17 14:30 Eos % (Auto) 3.2 % (0.6-7.6) 12/08/17 14:30 Baso % (Auto) 0.7 % (0.3-1.7) 12/08/17 14:30 Nucleat RBC Rel Count 0.0 % (0.0-0.2) 12/08/17 14:30 Absolute Neuts (auto) 7.27 10^3/uL (1.70-6.50) H 12/08/17 14:30 Absolute Lymphs (auto) 1.78 10^3/uL (1.00-3.00) 12/08/17 14:30 Absolute Monos (auto) 0.98 10^3/uL (0.30-0.80) H 12/08/17 14:30 Absolute Eos (auto) 0.34 10^3/uL (0.03-0.40) 12/08/17 14:30 Absolute Basos (auto) 0.07 10^3/uL (0.02-0.10) 12/08/17 14:30 Absolute Nucleated RBC 0.00 10^3/uL (0-0.01) 12/08/17 14:30 Immature Gran % 0.8 % (0.0-1.1) 12/08/17 14:30 Immature Gran # 0.08 10^3/uL (0.00-0.10) 12/08/17 14:30 Sodium 126 mEq/L (135-145) L 12/08/17 14:30 Potassium 4.8 mEq/L (3.5-5.2) 12/08/17 14:30 Chloride 92 mEq/L (97-110) L 12/08/17 14:30 Carbon Dioxide 24 mEq/l (22-31) 12/08/17 14:30 Anion Gap 10 mEq/L (8-16) 12/08/17 14:30 BUN 31 mg/dL (7-23) H 12/08/17 14:30 Creatinine 1.0 mg/dL (0.6-1.0) 12/08/17 14:30 Estimated GFR 52 12/08/17 14:30 Glucose 158 mg/dL (70-100) H 12/08/17 14:30 Calcium 9.6 mg/dL (8.5-10.4) 12/08/17 14:30 Total Bilirubin 0.4 mg/dL (0.1-1.4) 12/08/17 14:30 Conjugated Bilirubin 0.2 mg/dL (0.0-0.5) 12/08/17 14:30 Unconjugated Bilirubin 0.2 mg/dL (0.0-1.1) 12/08/17 14:30 AST 36 IU/L (14-46) 12/08/17 14:30 ALT 42 IU/L (9-52) 12/08/17 14:30 Alkaline Phosphatase 89 IU/L (38-126) 12/08/17 14:30 Troponin I < 0.012 ng/mL (0.000-0.034) 12/08/17 14:30 Total Protein 7.3 g/dL (6.3-8.2) 12/08/17 14:30 Albumin 4.2 g/dL (3.5-5.0) 12/08/17 14:30 Lipase 87 IU/L (23-300) 12/08/17 14:30 Urine Opiates Screen NEGATIVE (NEGATIVE) 12/08/17 15:22 Urine Barbiturates NEGATIVE (NEGATIVE) 12/08/17 15:22 Ur Phencyclidine Scrn NEGATIVE (NEGATIVE) 12/08/17 15:22 Ur Amphetamine Screen NEGATIVE (NEGATIVE) 12/08/17 15:22 U Benzodiazepines Scrn NEGATIVE (NEGATIVE) 12/08/17 15:22 Urine Cocaine Screen NEGATIVE (NEGATIVE) 12/08/17 15:22 U Marijuana (THC) Screen NEGATIVE (NEGATIVE) 12/08/17 15:22 Ethyl Alcohol < 10 mg/dL (0-10) 12/08/17 14:30 Assessment & Plan Assessment: #Significant acute on chronic depression. Unclear what meds or psych care she has had previously. No active SI/HI. Does not have plans to actively hurt herself #Dehydration per exam, poor oral intake #Acute on chronic Hyponatremia. She has a hx of SiADH but clinically looks dry on exam. She has already received 500ml in the E.D. will provide another 500 and reeval tomorrow. She was previously on fluid restriction and salt tablets #hx of Afib on chronic AC on Coumadin. INR was not checked, will check #CP with anxiety: this is likely non cardiac. will repeat trop x 1. No active CP at this time #HTN: unclear if she took her home meds, will cover with Hydralazine Plan: per above consider psych consult in a.m. check TSH start home meds as appropriate PT cont Warfarin pending INR check reeval hyponatremia tomorrow after some hydration
[2017-12-08 20:52] LABS: INR 3.15 (0.83-1.16); PROTIME(PATIENT) 32.2 SEC (12.0-15.0)
[2017-12-08] MEDS: MELATONIN 3 MG TAB PO SCH (21:10)
[2017-12-08] MEDS: SOTALOL HCL 80 MG TAB PO SCH (21:10)
[2017-12-08] MEDS: hydrALAZINE 20 MG/ML VIAL IVP PRN (21:11)
[2017-12-09] MEDS: LEVOTHYROXINE 125 MCG TAB PO SCH (05:41)
[2017-12-09] MEDS: hydrALAZINE 20 MG/ML VIAL IVP PRN ×2 (05:41→16:04)
[2017-12-09 06:10] LABS: PLATELET COUNT 278 10^3/uL (150-400)
[2017-12-09] MEDS: ATORVASTATIN CALCIUM 20 MG TAB PO SCH (07:59)
[2017-12-09] MEDS: SOTALOL HCL 80 MG TAB PO SCH ×2 (07:59→20:48)
[2017-12-09] MEDS: LOSARTAN POTASSIUM 50 MG TAB PO SCH (08:00)
--- NOTE | 2017-12-09 08:42 | PDMN ---
Medical Necessity Medical necessity: est los>2mn for significant acute on chronic depression, dehydration, chest pain,and acute on chronic hyponatremia; admit for re-eval after hydration, PT eval, medication adjustments, possible psych eval; comorbid afib on AC, htn, hld, NIDDM, anxiety, major depression; per order and H&P 12/08/17
[2017-12-09] MEDS: WARFARIN SODIUM 1 MG TAB PO SCH (15:36)
--- NOTE | 2017-12-09 17:05 | HOSPPROG ---
Hospitalist Progress Note Assessment/Plan: # hyponatremia - better with IVF - cont fluid restriction and Na tabs # a-fib - mildly elevate dINR - cont betapace and warfarin - recheck INR tomorrow # hypothyroid - synthroid # depression - appreciate psychiatry assistance # htn - norvasc Subjective: depressed; slept well last night; Objective: Vital Signs Temp Pulse Resp BP Pulse Ox 36.8 C 59 L 16 192/67 H 92 12/09/17 15:48 12/09/17 15:48 12/09/17 15:48 12/09/17 16:04 12/09/17 15:48 Laboratory Results 12/09/17 05:47 12/09/17 05:47 12/08/17 12/09/17 12/10/17 05:59 05:59 05:59 Output Total 750 Balance -750 PT 32.2 SEC (12.0-15.0) H 12/08/17 20:14 INR 3.15 (0.83-1.16) H 12/08/17 20:[address] her PCP Dr Jay and Dr Magdaleno - Time Spent With Patient Time Spent with Patient: greater than 35 minutes Time Spent with Patient: Greater than 35 minutes spent on this patients care, greater than 50% of time spent counseling, educating, and coordinating care regarding the above mentioned plan. ICD10 Worksheet Patient Problems: Problems Problem Status Onset CHF (congestive heart failure) Acute Chronic Disease Mgmt/Transitional Care Acute Bronchitis Acute Hypoxia Acute Pneumonia Acute Hyponatremia Acute Depression Acute
[2017-12-09] MEDS ORDERED: IOPAMIDOL (ISOVUE 370) 100 ML BTL IV ONE (17:46)
[2017-12-09] MEDS ORDERED: niCARdipine/NACL 200 ML IV SCH (18:00)
[2017-12-09] MEDS ORDERED: niCARdipine/NACL/200 ML BAG IV ONE (18:07)
--- NOTE | 2017-12-09 18:09 | HOSPPROG ---
Hospitalist Progress Note Assessment/Plan: Called emergently to bedside for acute neurologic changes that occurred around 3 :30. Patient complains of acute headache. PE: very uncomfortable, holding head BP 216/110, pulse 70 expressive aphasia follows commands motor exam difficult d/t patient discomfort sensation to light touch intact INR 3.15 CTH - negative CTA H&N - negative discussed with blue junie - not a candidate for tpa given INR 3 Imp - acute expressive aphasia d/t CVA or htn encephalopathy; complex migraine less likely Plan: - cardene gtt for SBP 160-180 - suspect htn emergency much more than cva - i think that lowering her BP is more appropriate than permissive htn - neuro consult tomorrow 55 minutes floor/bedside cc time in addition to previous visit Objective: Vital Signs Temp Pulse Resp BP Pulse Ox 36.8 C 59 L 16 192/67 H 92 12/09/17 15:48 12/09/17 15:48 12/09/17 15:48 12/09/17 16:04 12/09/17 15:48 Laboratory Results 12/09/17 05:47 12/09/17 05:47 12/08/17 12/09/17 12/10/17 05:59 05:59 05:59 Output Total 750 Balance -750 PT 32.2 SEC (12.0-15.0) H 12/08/17 20:14 INR 3.15 (0.83-1.16) H 12/08/17 20:14 ICD10 Worksheet Patient Problems: Problems Problem Status Onset Depression Acute Hyponatremia Acute Bronchitis Acute CHF (congestive heart failure) Acute Chronic Disease Mgmt/Transitional Care Acute Hypoxia Acute Pneumonia Acute
[2017-12-09] MEDS: HYDROmorphONE/DILAUDID 1 MG/ML INJ IVP PRN (19:29)
[2017-12-09] MEDS: MELATONIN 3 MG TAB PO SCH (20:48)
[2017-12-10] MEDS: ACETAMINOPHEN 325 MG TAB PO PRN ×2 (02:44→19:20)
[2017-12-10] MEDS: HYDROmorphONE/DILAUDID 1 MG/ML INJ IVP PRN (05:18)
[2017-12-10] MEDS: LEVOTHYROXINE 125 MCG TAB PO SCH (05:18)
[2017-12-10 05:29] LABS: INR 2.2 (0.83-1.16); PROTIME(PATIENT) 24.5 SEC (12.0-15.0)
[2017-12-10] MEDS: LOSARTAN POTASSIUM 50 MG TAB PO SCH (08:14)
[2017-12-10] MEDS: amLODIPine BESYLATE 5 MG TAB PO SCH (08:15)
[2017-12-10] MEDS: ATORVASTATIN CALCIUM 20 MG TAB PO SCH (08:15)
[2017-12-10] MEDS: SOTALOL HCL 80 MG TAB PO SCH ×2 (08:15→19:20)
--- NOTE | 2017-12-10 09:18 | HOSPPROG ---
Hospitalist Progress Note Assessment/Plan: # hypertensive emergency with acute aphasia - better today - also consider CVA - agree with MRI - continue on cardene gtt - currently stil very hypertensive - cont home meds; may need to uptitrate (home meds: norvasc 5, losartan 100) # hyponatremia - worse today; will recheck urine lytes - may still be hypovolemic - cont fluid restriction and Na tabs # a-fib - mildly elevate INR - cont betapace and warfarin - recheck INR tomorrow # hypothyroid - synthroid # depression - appreciate psychiatry assistance Subjective: better this morning; requesting something to sleep Objective: Vital Signs Temp Pulse Resp BP Pulse Ox 36.8 C 67 13 204/45 H 97 12/10/17 08:00 12/10/17 08:00 12/10/17 08:00 12/10/17 08:00 12/10/17 08:00 Laboratory Results 12/09/17 05:47 12/10/17 05:15 12/09/17 12/10/17 12/11/17 05:59 05:59 05:59 Intake Total 480 240 Output Total 750 Balance -270 240 PT 24.5 SEC (12.0-15.0) H 12/10/17 05:15 INR 2.20 (0.83-1.16) H 12/10/17 05:15 patient remains critically ill with high risk of acute neurologic decline or without anti-hypertensive gtt; 35 mins cc time - Physical Exam Constitutional: uncomfortable Cardiovascular: regular rate and rhythym, no murmur, rub, or gallop Respiratory: no respiratory distress, no rales or rhonchi Gastrointestinal: soft, non-tender abdomen, no palpable masses Neurologic: other (fluent speech) ICD10 Worksheet Patient Problems: Problems Problem Status Onset CHF (congestive heart failure) Acute Chronic Disease Mgmt/Transitional Care Acute Bronchitis Acute Hypoxia Acute Pneumonia Acute Hyponatremia Acute Depression Acute
--- NOTE | 2017-12-10 09:26 | NEUROPROG ---
Assessment: HOSPITAL NEUROLOGY CONSULT REQUESTING: Vasquez Malloy MD REASON: possible stroke HPI: 87 year old right-handed woman with a history of severe depression, anxiety, afib, CAD, CABG, HTN, HLD, DM2 who presented to our facility yesterday with worsening depression after having her medication regimen changed. She was placed on a mental health hold. Yesterday evening, she developed a severe headache with expressive aphasia. This coincided with escalation of her SBPs in the 200s. This lasted a couple hours per report until nursing was made aware - apparently her counselor was in the room noting symptoms but did not notify staff. Eventually, her BP was intervened upon and her symptoms resolved. Today she is not endorsing any focal deficits, but is extremely anxious and insisting upon a sleeping pill. She is very focused on this and is otherwise not wanting to discuss her event yesterday. ROS: As per the HPI, otherwise a complete 12 point ROS was performed and is negative ALLERGIES AND MEDS: As recorded in the EMR - reviewed and reconciled PFSH: As per the intake H&P by Dr. Copeland from yesterday EXAM: VS reviewed in EMR GEN: WDWN sitting in NAD HEENT: NCAT, sclera anicteric, conjunctiva not injected, MMM, oropharynx clear, no scalp tenderness NECK: supple, nontender, no meningismus CV: RRR s1 s2 grade II murmur best at LLSB. Carotid pulses 2+ wo bruit NEURO: MS: awake, alert, oriented to all spheres. She is somewhat agitated. Speech nondysarthric, but content perseverative upon her sleep issue. No language disturbance. Follows commands. Attends to both sides. Episodic memory impairment on casual conversation. Mood very anxious. Good fund of knowledge. CN: pupils 3mm round and reactive. Fundi with sharp discs. VFF. Primary gaze centered. Full ocular motility. Facial sensation preserved. Face symmetric. Hearing grossly intact to finger rub. Palatoglossal movements intact. Shoulder shrug and head turn strong. MOTOR: normal bulk/tone. No adventitial movements. Left dorsiflexor weakness at 3/5 (chronic from prior surgery). Clear deformity of the distal LLE from surgery present. SENSORY: symmetric LT/PP throughout in the extremities. No extinction. COORD: no ataxia FN/HS. Matias slowed. REFLEX: plantars down. No clonus. Right ankle jerk 1/4, left ankle jerk absent , other DTRS 3-/4. GAIT: deferred to PT safety DATA REVIEW: Labs reviewed in EMR PERSONALLY INTERPRETED RESULTS AND DATA: CT head wo - periventricular signal attenuation likely reflective of chronic microvascular ischemic change - nothing acute CTA head/neck - no hemodynamically significant stenosis, thrombosis or vascular caliber changes IMPRESSION AND RECOMMENDATIONS: // SUSPECT HTN EMERGENCY // ACUTE ON CHRONIC DEPRESSION Patient with severe DOTY and aphasia in the setting of abrupt escalation of BP with resolution of symptoms with BP intervention. Will screen for any acute ischemic change with MRI brain wo. Otherwise she has no vascular findings on CTA. She is already on appropriate medical therapy for stroke prevention. Depression to be evaluated by psychiatry. BP management per primary team. Objective: Vital Signs Temp Pulse Resp BP Pulse Ox 36.8 C 62 20 148/38 H 96 12/10/17 08:00 12/10/17 09:00 12/10/17 09:00 12/10/17 09:00 12/10/17 09:00 Laboratory Results 12/09/17 05:47 12/10/17 05:15 12/09/17 12/10/17 12/11/17 05:59 05:59 05:59 Intake Total 480 240 Output Total 750 Balance -270 240 PT 24.5 SEC (12.0-15.0) H 12/10/17 05:15 INR 2.20 (0.83-1.16) H 12/10/17 05:15 Allergies/Adverse Reactions: adhesive Allergy (Verified 12/01/17 02:09) carbamazepine [From Tegretol] Allergy (Verified 12/01/17 02:09) Sulfa (Sulfonamide Antibiotics) Allergy (Verified 12/01/17 02:09)
--- NOTE | 2017-12-10 12:32 | ASMTCMCOM ---
CM Note CM Note Notes: Spoke with Lacie who states patient does not qualify for inpatient rehab so will most likely need SNF or home health care.Spoke with Dr. Magdaleno who is doing a psych consult today. She was concerned about patient's medications. Contacted the [facility] who states even though they are an independent [facility]ci facility, they do have a program to support residents getting medication reminders, assist with getting their prescriptions filled, etc. The individual does have to be signed up for the program. Will discuss with patient and her Dr. to see if she wants to sign up. PT is recommending home care. Will discuss this with patient as well. CM following. Date Signed: 12/10/2017 12:31 PM Electronically Signed By:Maria Del Carmen Arshad LCSW
[2017-12-10] MEDS: WARFARIN SODIUM 1 MG TAB PO SCH (17:27)
[2017-12-10] MEDS: GABAPENTIN 100 MG CAP PO PRN (17:27)
[2017-12-10] MEDS: MIRTAZAPINE 15 MG TAB PO SCH (19:20)
[2017-12-10] MEDS: MELATONIN 3 MG TAB PO SCH (19:20)
--- NOTE | 2017-12-10 23:23 | GCON ---
[f rep st] CONSULTATION PULMONARY/CRITICAL CARE CONSULT REASON FOR CONSULTATION: Intensive care unit evaluation and management of anxiety, hypertension, michelle rologic changes. HISTORY: The patient is an 87-year-old who was admitted on 12/08 with extreme anxiety. She recently had a change in her underlying psychiatric medications and admitted depression without suicide ideat ions on initial evaluation. She was found to have mild hyponatremia and mild volume depletion. She was treated with normal saline and admitted for observation. She has a history of underlying hyperte nsion, hyperlipidemia, chronic atrial fibrillation on anticoagulation, and hypothyroidism on [facility] ent. Following admission, she was in a medical-surgical bed when she developed dysarthria. A stroke alert was called. Evaluation was negative regarding CT of her head and CT angiogram of the head and neck. She was therapeutic on Coumadin at that time. TPA was not offered. She was found to be hypertensi ve at 216/110. She was thus transferred to the intensive care unit and placed on a nicardipine drip. She has been seen by Neurology. A stroke has not been identified, and neurologically she has impro maday. An MRI has been ordered. She remains quite anxious. She has been seen by Psychiatry. Blood pressures on her usual outpatient oral antihypertensives have now normalized. Sodium has improved. She remains quite anxious. She d oes complain of the feeling that she is not getting enough air, but on oxygen at approximately 1 L, s aturations are 100%, and she has no apparent respiratory distress. PAST MEDICAL HISTORY: Remarkable for issues as outlined above, including depression, anxiety, chroni c atrial fibrillation on anticoagulation, coronary artery disease with previous coronary artery bypas s, and aortic valve replacement. There is a history of hyperlipidemia, hypothyroidism on replacement , and type 2 diabetes. SOCIAL HISTORY: Alcohol and tobacco are negative. She recently moved into [place], and that ap parently has precipitated some of her acute anxiety issues. ALLERGIES: Adhesive tape, sulfa preparations, carbamazepine. REVIEW OF SYSTEMS: A 10-point review of systems is negative. She has had surgery about 5 years ago on her left lower extremity, resulting in associated deformity. PHYSICAL EXAMINATION: GENERAL: This is a woman who appears anxious. VITAL SIGNS: Blood pressure i s 160/70, heart rate 64 with sinus rhythm on the monitor. Oxygen is in place 0.5 L with saturations in the high 90s. Respiratory rate is 20. HEENT: Unremarkable for lymphadenopathy or thyromegaly. There is no stridor. There is no jugular venous distention. Pupils are equal. CHEST: Clear bilate rally. Excursions are good. There are no abnormal sounds. HEART: Irregular. There is a systolic murmur. Her aortic valve sounds fine. There are no gallops. ABDOMEN: Overweight, soft, nontender. Bowel sounds are present. EXTREMITIES: Without significant edema. There is surgical deformity of the skin of the left lower extremity. NEUROLOGIC: Intact and nonfocal. She does seem quite anxiou s about being monitored, the feeling of shortness of breath, concern over having oxygen in place, etc . DATABASE: Chest x-ray earlier today is within normal limits. There is no evidence of pneumonia. Br onchial [place] are somewhat thickened. Cardiac silhouette is large. There is no evidence of pulmonar y edema. LABORATORY: White blood cell count is 10,600, hematocrit 32.6, platelets are normal. INR is 2.2. S odium 130, potassium 4.6, BUN 23 with a creatinine is 0.9. Glucose is 100. Urine osmolality is 515, random sodium 61. Tox screen on admission was negative. ASSESSMENT: 1. Hypertensive emergency. This was associated with aphasia. This has resolved. Blood pressure wa s initially controlled on Cardene, but currently is significantly better on her usual outpatient medi cations. Blood pressures will be followed closely with increased adjustments as needed by her blood pressure. 2. Hyponatremia, stable at 130. She is on a fluid restriction and sodium tablets. 3. History of chronic atrial fibrillation and anticoagulation. On Coumadin, INR is therapeutic. Kristal reed is on Betapace for rate control. 4. Depression and anxiety. This is a significant current issue. Psychiatric input is appreciated. She is on Remeron alone at this time. PLAN AND RECOMMENDATIONS: The patient will be kept in the intensive care unit. Blood pressure will be monitored. Current antihypertensives will be continued, with as-needed nicardipine given by intra venous drip if she again has significant increases in blood pressure. Remeron will be continued. An ticoagulation will be continued and INR monitored. Oxygen will be continued, per the patient's wishe s. Fluid restriction and salt tablets will be continued. Sodium will be followed. Further plans and recommendations will be made based on her progress over the next 12-24 hours. /[id number]/MODL
--- NOTE | 2017-12-11 00:43 | BCON ---
[f rep st] BEHAVIORAL HEALTH CONSULTATION BEHAVIORAL HEALTH PSYCHIATRIC MEDICATION CONSULTATION DATE OF CONSULTATION: 12/09/2017, 12/10/2017 REFERRING PHYSICIAN: Vasquez Malloy MD Consult requested to evaluate psychiatric medications and make recommendations for treatment of depression. BRIEF HISTORY: The patient is an 87-year-old female with a history of multiple medical problems, depression and anxiety, who moved to [facility] approximately 5 weeks ago. She had increasing depression over the past several weeks with some resulting psychiatric medication changes and apparently was talking with a friend on day of presentation, reporting her increased depression and voicing suicidal ideation with no specific plan. Friend suggested she call an ambulance and come to the hospital. She was admitted to the medical floor, with consideration for inpatient geriatric psychiatric admission once medically cleared. She had mentioned to paramedics en route that she had chest discomfort, which she attributed to anxiety. Also has an extensive cardiac history and vascular risk factors, on Warfarin. I discussed the case with the hospitalist, Dr. Malloy, who had communicated with patient's primary care physician regarding recent medication changes. Patient had been on Celexa until several months ago, which was discontinued when patient was hospitalized with hyponatremia, which was felt not related to SSRI. Started Wellbutrin 75mg BID, then increased one week ago to 100mg BID. Trintellex 10mg was added 12/07 but patient had not picked this up. Reviewed outside medications with pharmacist, and potential drug-drug interactions of considered antidepressant options. Spoke briefly with patient's therapist, Soraida Stafford, who was present in room upon initial interview and reported patient was depressed but also occasionally not making sense over the past 2 hours during her visit. Initially attempted interview with patient on 12/09/2017. Patient complained of headache and not feeling well, with SBP noted over 200. Speech was notable for expressive aphasia and word substitutions, illogical at times, stating "I don't have space of you", "I'm hoping that will be very hope." Patient seemed aware of her difficulty communicating. As there was no history of reported significant cognitive impairment or communication deficits, hospitalist was made aware and immediately came to assess, and called a stroke alert. No further evaluation attempted at that time. Interviewed patient on 12/10/[address]. Head CT was negative for any acute findings. Neurologic symptoms determined related to severe headache and elevated blood pressure with neurology consult pending. Patient was resting in bed, but sat up for interview, eager to share her complaints with hope for help, complaining primarily of insomnia, feeling confused and feeling more depressed related to this.She seemed mildly anxious and somewhat distraught, focusing on her difficulty sleeping over the last several days, "feeling so confused." Also experiencing mild nausea with decreased appetite recently. She endorsed feeling depressed and anxious. She denies feeling currently suicidal but did admit to periodically has been feeling passively suicidal "when I get desperate...like when I can't sleep or when I can't figure things out." Although she complains of both presently, she denies feeling currently suicidal with no plan or intent to harm herself. She admits depression has increased since residing at [facility] over the last several weeks. She apparently has moved to this facility due to increasing difficulty caring for herself. However, she states she still takes her own medication and is responsible for filling them. She reports using a pill organizer but then concedes, "I think I need help with my medications" and managing them. Patient admits also having some increased difficulty cognitively , having poor appetite due to nausea, insomnia over the last several days, awakens with need to catch her breath. She admits having been diagnosed with sleep apnea in the past, but tried to wear a CPAP. "I tried many different things for a whole year" in attempts to get comfortable using a CPAP, but apparently to no avail and has not been using one for quite some time. She does admit sometimes awakening "with a jerk, feeling like I can't get air." When asked if she feels hopeful, she states she feels nauseous then adds that she has 2 sons, "but I don't want to be a bother to them." She denies any history of psychotic symptoms. There is no history of ania or bipolar disorder diagnosis. PAST PSYCHIATRIC HISTORY: Notable for depression and anxiety. PCP manages her psychiatric medications. Most recently patient recalls Wellbutrin 75 mg b.i.d. recently increased to 100 mg b.i.d. with taking a morning and bed-time dose, but she discontinued this medication, recently and had not started the new one she couldn't recall name of. Per Dr. Malloy, who spoke with her primary care physician, Bupropion increase from 75mg b.i.d. to Wellbutrin 100 mg p.o. b.i.d. was her most recent medication change as well as addition of Trintellix on 12/07/2017, which patient had not started. There was a report of history of Celexa, but this was discontinued several months ago due to concerns for hyponatremia, although hyponatremia was determined to have different etiology. Patient did not recall being on Celexa (perhaps Cymbalta?). EMR indicates patient was taking Cymbalta in 2013 upon moving from [place] to [place]. She had taken melatonin for a long time in the past for sleep, but this has not seemed to be helpful. She has an open prescription for Rozerem, which has not been picked up at [facility] pharmacy. She states she recently changed to [facility] on [address] and fills her medications there now. Collateral from therapist Soraida Stafford 12/09/17 - Therapist states she has been working with the patient for approximately 2 years, seeing her generally weekly, especially more recently. The therapist reports the patient has seemed more depressed since at the [facility] because many old people there, but does have her dog there. Therapist feels the patient has had chronic mild depression and loneliness when living independently, but was able to engage in going to book clubs and meeting and socializing but has been worse recently, especially this past week when patient has called for therapist to visit several times. SUBSTANCE USE: Patient denied any history of substance use, smoking or alcohol. PAST MEDICAL HISTORY: Atrial fibrillation, aortic valve replacement,cardiac bypass, hypothyroidism, elevated cholesterol, insulin-dependent diabetes mellitus. History of diastolic heart failure. Left lower extremity skin grafting, status post skin cancer removal and radiation, 2010. Also hard of hearing with a left hearing aid. Obstructive sleep apnea, not using any CPAP. *Per review of EMR, patient fell backwards while walking her dog striking the back of her head. She apparently presented 12 hours later to ED on 12/01/2017 due to ongoing headache. There were no acute findings on head CT or other imaging. Primary care physician, Dr. Caro, at [facility]. FAMILY HISTORY: Per EMR noted as noncontributory. ALLERGIES: Sulfa, adhesives, and Tegretol. HOME MEDICATIONS: (Reported in EMR) Lipitor, Colace, melatonin, Coumadin, Synthroid, vitamin D2. Also reportedly on Wellbutrin 100 mg b.i.d. (AM, HS) with recent addition of Trintellix 10 mg daily, but had not started this. Patient recently stopped Wellbutrin, of the understanding she was to substitute it for Trintellix. However, seems PCP intended addition of second antidepressant.. SOCIAL HISTORY: Per EMR, moved from [place] to [place] in 2013, presumably to be close to her son. She reports having 2 sons. Has been living independently until moving to [facility] 5 weeks ago. Has a dog at [facility]. MENTAL STATUS EXAM: On evaluation, the patient was lying comfortably in hospital bed. Sat up for interview. Elderly appearing female, mildly overweight. Placed left hearing aid in the ear prior to interview. She was hard of hearing but seemed able to comprehend without difficulty so long as questions were clearly stated. Fair eye contact. Normal psychomotor activity. Normal speech rate and volume. Articulate. Mood depressed, anxious. Affect mildly anxious and distressed with somatic complaints and cognitive complaints. Thought processes generally with linear responses, but then becomes perseverative on need for sleep and "feeling confused", focused on wanting help with these primary distressing complaints. She denied being in any physical pain. She denied experiencing any auditory or visual hallucinations. There was no evidence of delusional thought. She denied currently feeling suicidal. She denied any thoughts of harming others. She was alert and oriented to December and 2017, but thought it was ( it is Wednesday) and was not sure of the date. She expressed much appreciation for any help to get her feeling better. She reports having difficulty with memory. IMPRESSION: 87-year-old female with multiple medical problems and history of depression, who has been with increased depression and voicing passive suicidal ideation recently. Although there are some psychosocial contributors to her increased depression, including moving out of her independent living to assisted living several months ago, and medical contributers including untreated SUBHASH, it seems the most acute issue is the unrecognized sequelae of her recent fall 12/01 where she struck the back of her head. Her primary complaints relate to insomnia and feeling confused, also headaches and feeling more depressed related to these symptoms. She was previously managing independently, including medications, but reports more confusion about how she was to take her medications recently. It is very possible that in an elderly person, what seems to be mild head trauma could manifest more severely, especially in the areas of cognition. 1. Suicidality. Patient reports occasional passive suicidal ideation with no plan or intent, and has no plan or thought to harm herself. States she wouldn' t feel this way if she didn't feel so confused and have such difficulty sleeping , as recently. An M1 hold is not currently indicated. She could be considered for geriatric psychiatric hospitalization once medically cleared. Behavioral health will continue to follow and assess throughout her hospital stay. 2. Depression/anxiety/insomnia. Has been taking Wellbutrin BID at home, which will certainly contribute to insomnia if dosed at HS. She discontinued this medication very recently, and in light of recent medical issues, will wait to restart at this time, until more medically stable. Wellbutrin would better be dosed just once daily in this patient, using SR or XL formulation. In discussion with hospitalist and pharmacist and also review of EMR and drug interactions,recommend starting Mirtazapine 7.5 mg p.o. h.s., which is an antidepressant but also can help with sleep and appetite. Most notable drug interaction is to monitor INR while on Coumadin as this combination of medication could possibly increase INR. Additionally, would continue melatonin 3 mg qHS. An off-label consideration could also be Gabapentin, 100mg p.r.n. for anxiety which has some sedating side effects and less likely to have drug interaction problems. If helpful, could schedule, including higher dose at h.s for sleep. May help with possible post-traumatic/concussive headache. Avoid any anticholinergics or benzodiazepines not only because of elderly but also in light of her multiple medical problems and complaint of cognitive difficulties and recent head trauma. Once the patient feels she has been sleeping better, could more formally reassess cognition and consider speech therapy evaluation and also assessment of her sequelae from head trauma. Additional consideration is untreated sleep apnea which in and of itself can cause depression. It certainly makes depression harder to treat if this is not treated. Patient reports numerous attempts at trying to make CPAP work over the course of the year unsuccessfully. She is currently not willing to retry it , but maybe when she is a little bit less frustrated and sleeping well, this could be readdressed as untreated sleep apnea can have significant negative impacts on her medical and psychiatric condition. Regarding her current condition at [facility], I would obtain collateral from her sons regarding baseline and recent functioning. Also will need to determine whether [facility] can provide appropriate level of care for this patient who had previously been able to live independently, but now is at least acknowledging she will need help with managing her medications. She may also have more higher level executive dysfunction not only due to head trauma but also she is at elevated risk for cognitive impairment given her multiple vascular and cardiac problems. 3. Traumatic Brain Injury/Post-concussive syndrome- suspect this is playing significant role in her recent worsening of symptoms. Perhaps Neurology could comment and make recommendations. Also, once feeling more rested and less frustrated, recommend speech therapy assessment for evaluation of current cognitive status, also occupational therapy for home safety evaluation. Also recommend contacting the patient's pharmacy, once medications are determined to be as they should, to ensure there are no other prescriptions still active that she should not be taking and would discontinue those so the patient would not refill medications and get confused as to what she should be taking. She apparently has recently switched pharmacies to [facility] on [address] and is no longer active with [facility] or [facility]. She does however have some outstanding medications still at [facility] including Rozerem. Thank you for allowing me to consult on this pleasant lady. Behavioral Health will continue to follow along and make recommendations during her hospitalization. Please do not hesitate to call with any question or concerns. /[id number]/MODL MTDD
[2017-12-11] MEDS: GABAPENTIN 100 MG CAP PO PRN (05:37)
[2017-12-11] MEDS: LEVOTHYROXINE 125 MCG TAB PO SCH (05:37)
[2017-12-11 06:00] LABS: PLATELET COUNT 242 10^3/uL (150-400)
[2017-12-11 06:07] LABS: INR 2.26 (0.83-1.16)
[2017-12-11] MEDS: amLODIPine BESYLATE 5 MG TAB PO SCH (06:13)
[2017-12-11] MEDS: LOSARTAN POTASSIUM 50 MG TAB PO SCH (07:53)
[2017-12-11] MEDS: ATORVASTATIN CALCIUM 20 MG TAB PO SCH (07:53)
[2017-12-11] MEDS: SOTALOL HCL 80 MG TAB PO SCH ×2 (09:00→20:46)
[2017-12-11] MEDS ORDERED: GABAPENTIN 100 MG CAP PO PRN (10:33)
--- NOTE | 2017-12-11 10:36 | HOSPPROG ---
Hospitalist Progress Note Assessment/Plan: -acute encephalopathy with very likely underlying neurocog issues -high suspicion for hypertensive encephalopathy acutely, supported by nurses observation of fluctating neuropsych fxn correlating with BPs (cause and effect could potentially go either direction) -acute hyponatremia may be contributor to her enceph -strongly suspect underlying dementia -? possible post concussive sxs (fall with [facility] a month ago?, slipped on ice): would be very hard to determine if this is present in current setting -uncontrolled severe HTN -hypothyroidism is undertreated and this could be a contributing factor as well (B12 nl, RPR not done yet) -chronic depression and anxiety, neither of which is currently ideally controlled, and likely contributing to her presenting sxs as well -new move to senior apartment building, not integrating socially, all of which is likely worsening her sxs -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 as a possible contributor -nocturnal hypoxemia here suggests that cerebral ischemia and sleep deprevation may also play a role in her sxs here -per nurse simple use of NCO2 treated the hypoxemia last night here, and pt has failed to tolerate extensive efforts to use cpap in past continue to titrated BP meds decrease gabapentin to 100 qHS, and would not increase before 4-5 days of that dose, would give entire dose at HS if dose increased MRI brain increase thyroid dose check RPR cog eval/therapy PT and OT DC planning will need to look at likely other options for living situation; she will likely need more supervision and medication assistance will need to talk to her sons about all of above and I have other questions for her Objective: Vital Signs Temp Pulse Resp BP Pulse Ox 36.7 C 58 L 18 159/32 H 95 12/11/17 07:53 12/11/17 07:53 12/11/17 07:53 12/11/17 07:53 12/11/17 07:53 Laboratory Results 12/11/17 05:40 12/11/17 05:40 12/10/17 12/11/17 12/12/17 06:59 06:59 06:59 Intake Total 480 1720 500 Output Total 750 2550 500 Balance -270 -830 0 PT 25.0 SEC (12.0-15.0) H 12/11/17 05:40 INR 2.26 (0.83-1.16) H 12/11/17 05:40 ICD10 Worksheet Patient Problems: Problems Problem Status Onset CHF (congestive heart failure) Acute Chronic Disease Mgmt/Transitional Care Acute Bronchitis Acute Hypoxia Acute Pneumonia Acute Hyponatremia Acute Depression Acute
[2017-12-11] MEDS ORDERED: LEVOTHYROXINE 25 MCG TAB PO ONE (12:05)
--- NOTE | 2017-12-11 12:32 | NEUROPROG ---
Assessment: Patient not seen - no charges. MRI brain wo reviewed - no acute ischemic change. OK to continue with treatment of BP. No stroke. Continue with psych optimization. Will sign off. Discussed with Dr. Johnson. Objective: Vital Signs Temp Pulse Resp BP Pulse Ox 36.7 C 58 L 18 159/32 H 95 12/11/17 07:53 12/11/17 07:53 12/11/17 07:53 12/11/17 07:53 12/11/17 07:53 Laboratory Results 12/11/17 05:40 12/11/17 05:40 12/10/17 12/11/17 12/12/17 05:59 05:59 05:59 Intake Total 480 1720 500 Output Total 750 2550 500 Balance -270 -830 0 PT 25.0 SEC (12.0-15.0) H 12/11/17 05:40 INR 2.26 (0.83-1.16) H 12/11/17 05:40 Allergies/Adverse Reactions: adhesive Allergy (Verified 12/01/17 02:09) carbamazepine [From Tegretol] Allergy (Verified 12/01/17 02:09) Sulfa (Sulfonamide Antibiotics) Allergy (Verified 12/01/17 02:09)
--- NOTE | 2017-12-11 12:59 | HOSPPROG ---
Hospitalist Progress Note Assessment/Plan: DIAGNOSES: -acute encephalopathy with very likely underlying neurocog issues -high suspicion for hypertensive encephalopathy acutely, supported by nurses observation of fluctating neuropsych fxn correlating with BPs (cause and effect could potentially go either direction) -acute hyponatremia may be contributor to her enceph -strongly suspect underlying dementia -? 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 janessa Pham and with Dr. Tony Henson. Overall I think that this patient has not probably an underlying dementia with some acute encephalopathy that is multifactorial, and all aggravated by her anxiety and depression issues as well as possibly some affects of recent medication changes. At this point we clearly need to get her blood pressure steady and controlled, need to increase her thyroid dose, need to continue to titrate her sodium back into range, a need to continue working on her sleep and hypoxemia. Beyond fixing these issues I think she will still be left with some degree of cognitive disability and her anxiety and depression. We have started her on some new medications to try and manage anxiety and depression and I am hopeful that these will be helpful but they will take some extended period of time to take effect probably over period of 2 or more weeks. I expect that she will have need for increased supervision and monitoring and follow-up. It will be very helpful for her sons to have some caregiver training and other education related to dementia type illnesses and managing the financial and other life issues for their mother. papier mache' molder will be very helpful in helping with all these issues. PLANS: continue to titrated BP meds decrease gabapentin to 100 qHS, and would not increase before 4-5 days of that dose, would give entire dose at HS if dose increased, no daytime dosing Continue melatonin and mirtazapine at current doses for now Close monitoring of her response to all of these medication changes, though the benefits of some of these medicines will take some extended period of time to realize MRI brain increase thyroid dose to 150 mcg, will need repeat TSH in 6 weeks check RPR cog eval/therapy PT and OT DC planning will need to look at likely other options for living situation; she will likely need more supervision and medication assistance will need to talk to her sons about all of above and I have other questions for her SUBJECTIVE: The patient remains fairly anxious although according to the nursing staff this is much less of an issue today than it was yesterday. She complains of a sense of dizziness although it is neither a lightheadedness or vertigo or a nausea, more like a pressure sensation in her head that is diffuse and without real pain or neurologic features. She does not really recall how she fell yesterday and does not really recall what was happening at her apartment before she came in in terms of her presenting symptoms. She cannot tell me if her current symptoms are similar to symptoms she was having at home that led her presentation or not. There other memory issues that she admits to. She does not really know how long that is been going on. She denies headache or new focal neurologic symptoms. There is no chest pain palpitations or shortness of breath. She is eating here but says she has very poor appetite. The nurses do notice a fair bit of fluctuation in the patient's level of anxiety , and her cognitive abilities seem to fluctuate along with that OBJECTIVE Vitals reviewed: Intermittently hypertensive but currently within normal blood pressure. The highest blood pressure were overnight per the nurses was 190 systolic although that was not recorded by the nursing staff. Otherwise her pulse is 50 8-68 and regular and her respirations are normal temperature is normal [employer], my review: All sinus Exam: alert but she is fairly anxious, somewhat distracted, obvious memory deficit, has a great deal of difficulty describing symptoms, mildly disoriented; there is no tremor, no evidence of hallucination, some occasional confusion, no pressured speech; she does not have any form of a phase E a or comprehensive issues in terms of simple conversation, there does not appear to be any focal motor weakness or incoordination and her cranial nerves and pupils look normal skin warm dry color ok resps not labored lungs clear BSs heart regular abd soft nondistended nontender, bowel sounds present limbs warm, no edema iv site ok Laboratory data: Her TSH back now is 7.6 Her B12 is greater than a 1000 Sodium continues to increase at a appropriate rate and is now 133, other electrolytes okay renal function good I reviewed all of her previous imaging studies, and agree with the overall interpretations already in the chart She has an MRI scheduled for today which has not been performed yet Objective: Vital Signs Temp Pulse Resp BP Pulse Ox 36.4 C 62 20 149/28 H 98 12/11/17 12:00 12/11/17 12:00 12/11/17 12:00 12/11/17 12:00 12/11/17 12:00 Laboratory Results 12/11/17 05:40 12/11/17 05:40 12/10/17 12/11/17 12/12/17 06:59 06:59 06:59 Intake Total 480 1720 500 Output Total 750 2550 500 Balance -270 -830 0 PT 25.0 SEC (12.0-15.0) H 12/11/17 05:40 INR 2.26 (0.83-1.16) H 12/11/17 05:40 - Time Spent With Patient Time Spent with Patient: greater than 35 minutes Time Spent with Patient: Greater than 35 minutes spent on this patients care, greater than 50% of time spent counseling, educating, and coordinating care regarding the above mentioned plan. ICD10 Worksheet Patient Problems: Problems Problem Status Onset Depression Acute Hyponatremia Acute Bronchitis Acute CHF (congestive heart failure) Acute Chronic Disease Mgmt/Transitional Care Acute Hypoxia Acute Pneumonia Acute
[2017-12-11] MEDS: TRIAMTERENE/HCTZ 37.5/25 1 EACH TAB PO SCH (13:18)
--- NOTE | 2017-12-11 14:57 | PDINTPN ---
Contracts Intern Progress Note Assessment/Plan: Assessment: Anxiety/depression. Seems better today. Possibly due to gabapentin? However, may be having some side effects from the latter. Hypertension: Blood pressures remain quite high at times, with some apparent mental status changes at her highest blood pressures. On multiple medications. Will continue these comma increase amlodipine, add maxide. Hyponatremia: Improved. On fluid restriction, salt tabs. Chronic atrial fibrillation, anticoagulation. INR therapeutic. Plan: Continue anti hypertensives. Follow blood pressure closely. Continue antidepressants and psychiatric medications. Will cut back on gabapentin to twice daily p.r.n.. Continue care in the intensive care unit as a step-down patient. Subjective: Says she is having unusual thoughts in her head. Denies shortness of breath today. No pain. Objective: Vital Signs Temp Pulse Resp BP Pulse Ox 36.4 C 65 20 154/30 H 96 12/11/17 12:00 12/11/17 14:00 12/11/17 14:00 12/11/17 14:00 12/11/17 14:00 Laboratory Results 12/11/17 05:40 12/11/17 05:40 12/10/17 12/11/17 12/12/17 05:59 05:59 05:59 Intake Total 480 1720 500 Output Total 750 2550 500 Balance -270 -830 0 PT 25.0 SEC (12.0-15.0) H 12/11/17 05:40 INR 2.26 (0.83-1.16) H 12/11/17 05:40 Laboratory Tests 12/11/17 12/11/17 05:40 05:40 PT 25.0 H INR 2.26 H Calcium 9.1 MRI: No evidence of acute infarction. Some chronic white matter changes. Physical Exam - Physical Exam General Appearance: alert, no apparent distress EENT: PERRL/EOMI, other (Nasal cannula in place at 2 L, 96%.) Neck: normal inspection (No JVD) Respiratory: lungs clear, normal breath sounds, No rales, No rhonchi Cardiac/Chest: regular rate, rhythm, bradycardia (Heart rates in the 50s and 60s ) Abdomen: normal bowel sounds, non-tender, soft Skin: normal color, warm/dry Extremities: No pedal edema Neuro/Psych: no motor/sensory deficits, cognition abnormalities (Remains anxious , unusual thought processes) ICD10 Worksheet Patient Problems: Problems Problem Status Onset CHF (congestive heart failure) Acute Chronic Disease Mgmt/Transitional Care Acute Bronchitis Acute Hypoxia Acute Pneumonia Acute Hyponatremia Acute Depression Acute
[2017-12-11] MEDS: WARFARIN SODIUM 1 MG TAB PO SCH (18:30)
[2017-12-11] MEDS: MIRTAZAPINE 15 MG TAB PO SCH (20:46)
[2017-12-11] MEDS: GABAPENTIN 100 MG CAP PO SCH (20:46)
[2017-12-11] MEDS: MELATONIN 3 MG TAB PO SCH (20:46)
[2017-12-11] MEDS ORDERED: CANN-EASE 2 GM TUBE TP SCH (21:00)
[2017-12-11] MEDS ORDERED: CANN-EASE 2 GM TUBE TP PRN (21:30)
[2017-12-12 07:32] LABS: INR 2.12 (0.83-1.16); PROTIME(PATIENT) 23.8 SEC (12.0-15.0)
[2017-12-12] MEDS: SOTALOL HCL 80 MG TAB PO SCH ×2 (08:34→21:29)
[2017-12-12] MEDS: ATORVASTATIN CALCIUM 20 MG TAB PO SCH (08:34)
[2017-12-12] MEDS: amLODIPine BESYLATE 5 MG TAB PO SCH (08:34)
[2017-12-12] MEDS: TRIAMTERENE/HCTZ 37.5/25 1 EACH TAB PO SCH (08:34)
[2017-12-12] MEDS: LOSARTAN POTASSIUM 50 MG TAB PO SCH (08:34)
[2017-12-12] MEDS: LEVOTHYROXINE 150 MCG TAB PO SCH (08:34)
--- NOTE | 2017-12-12 13:40 | PDINTPN ---
Business Center Manager Progress Note Assessment/Plan: Assessment: Anxiety/depression. Overall better but unusual thought processes and ideas persists. I do not think this is related to gabapentin at this point. Hypertension: Blood pressures under better control. On multiple medications as listed, with increased amlodipine an added max side yesterday.. Hyponatremia: Improved. On fluid restriction, salt tabs. Sodium 133 today. Chronic atrial fibrillation, anticoagulation. INR therapeutic. Plan: Continue anti hypertensives. Follow blood pressure closely. Continue antidepressants and psychiatric medications. Possibly restart Wellbutrin. Continue gabapentin at night. Can transfer to a medical-surgical bed from my standpoint. She may need an assisted living as opposed to an independent living situation on discharge, possibly with psychiatric support. Subjective: Feels better. Up in the chair. Complains of a bad dream last night and some nonspecific anxiety this morning related to her dream. Denies shortness of breath, pain Objective: Vital Signs Temp Pulse Resp BP Pulse Ox 36.3 C 63 20 131/32 H 94 12/12/17 12:00 12/12/17 12:00 12/12/17 12:00 12/12/17 12:00 12/12/17 12:00 Laboratory Results 12/11/17 05:40 12/11/17 05:40 12/11/17 12/12/17 12/13/17 05:59 05:59 05:59 Intake Total 1720 1180 Output Total 2550 1650 Balance -830 -470 PT 23.8 SEC (12.0-15.0) H 12/12/17 06:45 INR 2.12 (0.83-1.16) H 12/12/17 06:45 Physical Exam - Physical Exam General Appearance: alert, no apparent distress, obese, other (In chair) EENT: PERRL/EOMI, other (On room air) Neck: normal inspection Respiratory: lungs clear, normal breath sounds Cardiac/Chest: regular rate, rhythm, No gallop Abdomen: normal bowel sounds, non-tender, soft Skin: normal color, warm/dry Extremities: No pedal edema Neuro/Psych: no motor/sensory deficits, No cognition abnormalities (Oriented, but thought processes remains somewhat bizarre.) ICD10 Worksheet Patient Problems: Problems Problem Status Onset CHF (congestive heart failure) Acute Chronic Disease Mgmt/Transitional Care Acute Bronchitis Acute Hypoxia Acute Pneumonia Acute Hyponatremia Acute Depression Acute
--- NOTE | 2017-12-12 13:54 | HOSPPROG ---
Hospitalist Progress Note Assessment/Plan: DIAGNOSES: -acute encephalopathy; with multiple acute etiologic factors and with underlying neurocog issues -suspicion for hypertensive encephalopathy acutely, supported by nurses observation of fluctating neuropsych fxn correlating with BPs (although cause and effect could potentially go either direction and it may be that anxiety is causing higher blood pressures) -acute hyponatremia, contributing to her encephalopathy, felt to be hypovolemic and due to poor intake and responding well to replacement here -strongly suspect underlying dementia -uncontrolled severe HTN -hypothyroidism is undertreated and this could be a contributing factor as well (B12 nl, RPR not done yet) -chronic depression and anxiety, neither of which is currently ideally controlled, and likely contributing to her presenting sxs as well -new move to senior apartment building, not integrating socially, all of which is likely worsening her sxs -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 possible post concussive sxs (fall with [facility] a month ago?, slipped on ice): As she is improving rib very rapidly in the last 48 hr by treating other measures, I actually doubt that there is a post concussive component of any significance At this time she is actually improving fairly rapidly with treatment of hyponatremia, anxiety, insomnia, and hypothyroidism and with a lot of reassurance and frequent visits from staff and others. I think continuing these measures she may within a couple of days or so potentially improved to the point of being able to go home with home care, however she would need a lot of support in the outpatient setting as well as very frequent monitoring of her medical issues. It would be very helpful to get her socially integrated in her new home situation, and she would benefit greatly from either yoga or other breathing exercises that she could use for management of her anxiety symptoms as well as medications. PLANS: Follow blood pressures closely; given her age will not push harder with medications for her smiled systolic blood pressures especially given her very low diastolics at this time Continue gabapentin at 100 qHS, and would not increase before 4-5 days on that dose, would give entire dose at HS if dose increased, no daytime dosing Continue melatonin and mirtazapine at current doses for now; continue to follow her improvement and for any signs of side effects Presently I would not favor addition of any other medicines including I would not resume her Wellbutrin, but I want to discuss this with the psychiatry in home sales consultant Close monitoring of her response to all of these medication changes, though the benefits of some of these medicines will take some extended period of time to realize Continue increased thyroid dose of 150 mcg, will need repeat TSH in 6 weeks check RPR cog eval/therapy PT and OT DC planning looking into possibility of [facility] facility or as recommended by psychiatrist inpatient mental health unit, however as she is improving quickly we may be able to get her home with home care in the not too distant future if she continues to improve SUBJECTIVE: Still complains of some anxiety but it is actually notably reduced today. She is feeling much more comfortable overall. Slept better last night She denies headache or new focal neurologic symptoms. No cardiac or GI or respiratory symptoms, no fever symptoms No side effects of medications noted far OBJECTIVE Vitals reviewed: Still some mild systolic hypertension on occasion but blood pressure is much better overall, and her diastolics are actually very low and mean pressures in good range; other vitals stable without fever Music Pastor, my review: All sinus Exam: alert today is much more relaxed, not nearly so anxious, and is also much better oriented and displaying some improvement in memory No tremor, mild generalized but no focal weakness skin warm dry color ok resps not labored lungs clear BSs heart regular abd soft nondistended nontender, bowel sounds present limbs warm, no edema iv site ok Laboratory data: Her TSH is 7.6 Her B12 is greater than a 1000 MRI of the brain, I reviewed the images from the study: There is no evidence of any acute lesion of any kind. There is white matter nonspecific ischemic changed likely microvascular etiology which the radiologist characterizes as mild but in my review the images is more consistent with at least moderate degree. Objective: Vital Signs Temp Pulse Resp BP Pulse Ox 36.3 C 63 20 131/32 H 94 12/12/17 12:00 12/12/17 12:00 12/12/17 12:00 12/12/17 12:00 12/12/17 12:00 Laboratory Results 12/11/17 05:40 12/11/17 05:40 12/11/17 12/12/17 12/13/17 06:59 06:59 06:59 Intake Total 1720 1180 Output Total 2550 1650 Balance -830 -470 PT 23.8 SEC (12.0-15.0) H 12/12/17 06:45 INR 2.12 (0.83-1.16) H 12/12/17 06:45 - Time Spent With Patient Time Spent with Patient: greater than 35 minutes Time Spent with Patient: Greater than 35 minutes spent on this patients care, greater than 50% of time spent counseling, educating, and coordinating care regarding the above mentioned plan. ICD10 Worksheet Patient Problems: Problems Problem Status Onset Depression Acute Hyponatremia Acute Bronchitis Acute CHF (congestive heart failure) Acute Chronic Disease Mgmt/Transitional Care Acute Hypoxia Acute Pneumonia Acute
[2017-12-12] MEDS: WARFARIN SODIUM 1 MG TAB PO SCH (17:02)
--- NOTE | 2017-12-12 17:11 | ASMTCMCOM ---
CM Note CM Note Notes: Spoke to patient and her son, Doyle. Patient has difficulty remembering. Suggested that the medication program at the [facility] might be the most helpful for patient. RN reports that patient has had many visitors since she has been in ICU. Has many friends may just need medications for her depression. Has Remeron scheduled at night but nothing for the day. Dr. Magdaleno involved. CM to follow. Date Signed: 12/12/2017 05:11 PM Electronically Signed By:Carline Wilson LCSW
[2017-12-12] MEDS: MIRTAZAPINE 15 MG TAB PO SCH (21:29)
[2017-12-12] MEDS: GABAPENTIN 100 MG CAP PO SCH (21:29)
[2017-12-12] MEDS: MELATONIN 3 MG TAB PO SCH (21:30)
[2017-12-13 02:25] LABS: PLATELET COUNT 303 10^3/uL (150-400)
[2017-12-13] MEDS: LEVOTHYROXINE 150 MCG TAB PO SCH (04:00)
[2017-12-13] MEDS: ACETAMINOPHEN 325 MG TAB PO PRN (04:00)
[2017-12-13] MEDS: LOSARTAN POTASSIUM 50 MG TAB PO SCH (08:22)
[2017-12-13] MEDS: TRIAMTERENE/HCTZ 37.5/25 1 EACH TAB PO SCH (08:23)
[2017-12-13] MEDS: ATORVASTATIN CALCIUM 20 MG TAB PO SCH (08:24)
[2017-12-13] MEDS: SOTALOL HCL 80 MG TAB PO SCH ×2 (08:24→20:02)
[2017-12-13] MEDS: amLODIPine BESYLATE 5 MG TAB PO SCH (08:25)
--- NOTE | 2017-12-13 15:33 | ASMTCMCOM ---
CM Note CM Note Notes: Annika happy to see this CM. Has had numerous friends visit from her oriental orthodox. She reports that her "head is swimming with information and she doesn't know what to do with it." She holds her head. When I ask if she has a headache or if I should pull down the shades she says, "no", but that she has a lot of head pressure. Patient's TSH is 6.360. She reports that she "can't live like this." Patient's therapist, Soraida Enrique, FREDDIE [phone] was here visiting. Soraida reports that she has been seeing patient for a few years. Soraida reports that patient does not think patient has dementia but is very depressed. Soraida feels that patient might make a good candidate for ECT txs. Soraida also suggested that CM contact Sriram Catsanedaeleonora [phone] who can help set up resources for patient when she returns to the [facility]. Date Signed: 12/13/2017 03:32 PM Electronically Signed By:Carline Wilson LCSW
[2017-12-13] MEDS: WARFARIN SODIUM 1 MG TAB PO SCH (17:58)
--- NOTE | 2017-12-13 18:49 | HOSPPROG ---
Hospitalist Progress Note Assessment/Plan: DIAGNOSES: -acute encephalopathy; with multiple acute etiologic factors and with underlying neurocog issues -suspicion for hypertensive encephalopathy acutely, supported by nurses observation of fluctating neuropsych fxn correlating with BPs (although cause and effect could potentially go either direction and it may be that anxiety is causing higher blood pressures) -acute hyponatremia, contributing to her encephalopathy, felt to be hypovolemic and due to poor intake and responding well to replacement here -strongly suspect underlying dementia -uncontrolled severe HTN -hypothyroidism is undertreated and this could be a contributing factor as well (B12 nl, RPR not done yet) -chronic depression and anxiety, neither of which is currently ideally controlled, and likely contributing to her presenting sxs as well -new move to senior apartment building, not integrating socially, all of which is likely worsening her sxs -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 as a possible contributor -sleep apnea hx/ nocturnal hypoxemia here suggests that cerebral ischemia and sleep deprevation may also play a role in her sxs here -NC O2 has successfully treated the hypoxemia here in the hospital, and pt has failed to tolerate extensive efforts to use cpap in past -will continue to follow her oxygen during sleep at night here, and it sounds like home oxygen will be necessary; since she did not tolerate CPAP in the past it may be useful to consider other options such as surgical or other for her sleep apnea -severe insomnia and likely some sleep deprivation related to that as an ongoing chronic problem -? possible post concussive sxs (fall with [facility] a month ago?, slipped on ice): As she is improving rib very rapidly in the last 48 hr by treating other measures, I actually doubt that there is a post concussive component of any significance Not as good a day today and it is clear that she needs better sleep to have a good day. I am particularly concerned about her perseveration on how horrible she feels "inside my head", and her mention of suicidal ideation and she came into the hospital. I will increase her Neurontin at this time in add some trazodone for better sleep and follow the result carefully. Will need to have mental health or psychiatry come back and reassess her situation at this time. As I watch today it may actually be the case that she will need a geriatric psychiatry unit. At the moment I can't see that she would be successful in a long-term facility or an unsupervised apartment. PLANS: Follow blood pressures closely; given her age will not push harder with medications for her smiled systolic blood pressures especially given her very low diastolics at this time Continue gabapentin at 100 qHS, and would not increase before 4-5 days on that dose, would give entire dose at HS if dose increased, no daytime dosing Continue melatonin and mirtazapine at current doses for now; continue to follow her improvement and for any signs of side effects Presently I would not favor addition of any other medicines including I would not resume her Wellbutrin, but I want to discuss this with the psychiatry business continuity consultant Close monitoring of her response to all of these medication changes, though the benefits of some of these medicines will take some extended period of time to realize Continue increased thyroid dose of 150 mcg, will need repeat TSH in 6 weeks check RPR cog eval/therapy PT and OT DC planning looking into possibility of long-term facility or as recommended by psychiatrist inpatient mental health unit, however as she is improving quickly we may be able to get her home with home care in the not too distant future if she continues to improve SUBJECTIVE: Still complains of some anxiety but it is actually notably reduced today. She is feeling much more comfortable overall. Slept better last night She denies headache or new focal neurologic symptoms. 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 There is white matter nonspecific ischemic changed likely microvascular etiology which the radiologist characterizes as mild but in my review the images is more consistent with at least moderate degree. Objective: Vital Signs Temp Pulse Resp BP Pulse Ox 36.7 C 61 16 142/42 H 94 12/13/17 16:00 02/12/18 16:00 12/13/17 16:00 12/13/17 16:00 12/13/17 16:00 Laboratory Results 12/13/17 02:00 12/13/17 02:00 12/12/17 12/13/17 12/14/17 06:59 06:59 06:59 Intake Total 1180 1200 Output Total 1650 700 Balance -470 500 PT 23.8 SEC (12.0-15.0) H 12/12/17 06:45 INR 2.12 (0.83-1.16) H 12/12/17 06:45 ICD10 Worksheet Patient Problems: Problems Problem Status Onset Depression Acute Hyponatremia Acute Bronchitis Acute CHF (congestive heart failure) Acute Chronic Disease Mgmt/Transitional Care Acute Hypoxia Acute Pneumonia Acute
--- NOTE | 2017-12-13 18:53 | HOSPPROG ---
Hospitalist Progress Note Assessment/Plan: DIAGNOSES: -acute renal insufficiency mild, new problem 12/13, ? Due to hypertension or other cause -acute encephalopathy; with multiple acute etiologic factors and with underlying neurocog issues -suspicion for hypertensive encephalopathy acutely, supported by nurses observation of fluctating neuropsych fxn correlating with BPs (although cause and effect could potentially go either direction and it may be that anxiety is causing higher blood pressures) -acute hyponatremia, contributing to her encephalopathy, felt to be hypovolemic and due to poor intake and responding well to replacement here -strongly suspect underlying dementia -uncontrolled severe HTN -hypothyroidism is undertreated and this could be a contributing factor as well (B12 nl, RPR not done yet) -chronic depression and anxiety, neither of which is currently ideally controlled, and likely contributing to her presenting sxs as well -new move to senior apartment building, not integrating socially, all of which is likely worsening her sxs -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 as a possible contributor -sleep apnea hx/ nocturnal hypoxemia here suggests that cerebral ischemia and sleep deprevation may also play a role in her sxs here -[facility] O2 has successfully treated the hypoxemia here in the hospital, and pt has failed to tolerate extensive efforts to use cpap in past -will continue to follow her oxygen during sleep at night here, and it sounds like home oxygen will be necessary; since she did not tolerate CPAP in the past it may be useful to consider other options such as surgical or other for her sleep apnea -severe insomnia and likely some sleep deprivation related to that as an ongoing chronic problem -? possible post concussive sxs (fall with [facility] a month ago?, slipped on ice): As she is improving rib very rapidly in the last 48 hr by treating other measures, I actually doubt that there is a post concussive component of any significance Not as good a day today and it is clear that she needs better sleep to have a good day. I am particularly concerned about her perseveration on how horrible she feels "inside my head", and her mention of suicidal ideation and she came into the hospital. I will increase her Neurontin at this time in add some trazodone for better sleep and follow the result carefully. Will need to have mental health or psychiatry come back and reassess her situation at this time. As I watch today it may actually be the case that she will need a geriatric psychiatry unit. At the moment I can't see that she would be successful in a halfway facility or an unsupervised apartment. PLANS: Will ask Nephrology to see her due to her ongoing intermittent severe systolic hypertension with very low diastolics and moderately low mean pressure, also now some increasing creatinine Avoid nephrotoxin medicines Increase gabapentin to 200 mg at night, and would not increase before 4-5 days on that dose, would give entire dose at HS if dose increased, no daytime dosing Will also add some trazodone for sleep Continue melatonin and mirtazapine at current doses for now; continue to follow her improvement and for any signs of side effects Will ask Psychiatry to come and visit her again Close monitoring of her response to all of these medication changes, though the benefits of some of these medicines will take some extended period of time to realize Continue increased thyroid dose of 150 mcg, will need repeat TSH in 6 weeks check RPR cog eval/therapy PT and OT The patient has inquired about the possibility of electroconvulsive therapy. 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 Would need psychiatry evaluation to assess this. Continue DC planning efforts but again at at a.m. concerned that she may really be best benefited by geriatric psychiatry unit and we would need this assistance of the psychiatry team to help set that up or recommended placement. SUBJECTIVE: Slept poorly last night. Today is having a great deal of increased anxiety and concern and worry compared to yesterday She denies headache or new focal neurologic symptoms. No cardiac or GI or respiratory symptoms, no fever symptoms No side effects of medications noted far OBJECTIVE Vitals reviewed: Overnight had some severe systolic hypertension up to 190 but again she persists with very low diastolic blood pressure is the lowest in the 20s. other vitals stable without fever [employer], my review: All sinus Exam: alert quite anxious today really to a state of severe debility, with continued improvement in her delirium, still with some notable mild underlining memory deficit and occasional confusion No tremor, mild generalized but no focal weakness skin warm dry color ok resps not labored lungs clear BSs heart regular abd soft nondistended nontender, bowel sounds present limbs warm, no edema iv site ok Laboratory data: On chemistry today her creatinine is up at 1.2 Her TSH is 7.6 Her B12 is greater than a 1000 Objective: Vital Signs Temp Pulse Resp BP Pulse Ox 36.7 C 61 16 142/42 H 94 12/13/17 16:00 12/13/17 16:00 12/13/17 16:00 12/13/17 16:00 12/13/17 16:00 Laboratory Results 12/13/17 02:00 12/13/17 02:00 12/12/17 12/13/17 12/14/17 06:59 06:59 06:59 Intake Total 1180 1200 Output Total 1650 700 Balance -470 500 PT 23.8 SEC (12.0-15.0) H 12/12/17 06:45 INR 2.12 (0.83-1.16) H 12/12/17 06:45 - Time Spent With Patient Time Spent with Patient: greater than 35 minutes Time Spent with Patient: Greater than 35 minutes spent on this patients care, greater than 50% of time spent counseling, educating, and coordinating care regarding the above mentioned plan. ICD10 Worksheet Patient Problems: Problems Problem Status Onset Depression Acute Hyponatremia Acute Bronchitis Acute CHF (congestive heart failure) Acute Chronic Disease Mgmt/Transitional Care Acute Hypoxia Acute Pneumonia Acute
[2017-12-13] MEDS: GABAPENTIN 100 MG CAP PO SCH (20:00)
[2017-12-13] MEDS: MIRTAZAPINE 15 MG TAB PO SCH (20:01)
[2017-12-13] MEDS: MELATONIN 3 MG TAB PO SCH (20:01)
[2017-12-13] MEDS ORDERED: traZODone 50 MG TAB PO SCH (21:00)
[2017-12-14] MEDS ORDERED: MELATONIN 3 MG TAB PO ONE (01:20)
[2017-12-14] MEDS: LEVOTHYROXINE 150 MCG TAB PO SCH (08:04)
[2017-12-14] MEDS: SOTALOL HCL 80 MG TAB PO SCH ×2 (08:21→22:10)
[2017-12-14] MEDS: LOSARTAN POTASSIUM 50 MG TAB PO SCH (08:21)
[2017-12-14] MEDS: ATORVASTATIN CALCIUM 20 MG TAB PO SCH (08:21)
[2017-12-14] MEDS: TRIAMTERENE/HCTZ 37.5/25 1 EACH TAB PO SCH (08:21)
[2017-12-14] MEDS: amLODIPine BESYLATE 5 MG TAB PO SCH (08:21)
--- NOTE | 2017-12-14 16:20 | HOSPPROG ---
Hospitalist Progress Note Assessment/Plan: This woman with ongoing severe depression and anxiety comes in to the hospital with acute encephalopathy of multifactorial etiology, along with worsening of her depression and anxiety. She is improving but in need of ongoing treatment particularly for her mental health issues. 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 -uncontrolled severe systolic HTN but VERY low diastolics, normal mean BPs see discussion below -hypothyroidism is undertreated , likely aggravating encephalopathy and depression -chronic depression and anxiety, neither of which is currently ideally controlled, and likely contributing to her presenting sxs as well -new move to senior apartment building, not integrating socially, all of which is likely worsening her sxs -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 as a possible contributor -sleep apnea hx/ nocturnal hypoxemia here suggests that cerebral ischemia and sleep deprevation may also play a role in her sxs here -[facility] O2 has successfully treated the hypoxemia here in the hospital, and pt has failed to tolerate extensive efforts to use cpap in past -will continue to follow her oxygen during sleep at night here, and it sounds like home oxygen will be necessary; since she did not tolerate CPAP in the past it may be useful to consider other options such as surgical or other for her sleep apnea -severe insomnia and likely some sleep deprivation related to that as an ongoing chronic problem -? possible post concussive sxs (fall with [facility] a month ago?, slipped on ice): actually has severe chronic sxs, and now many acute sxs that came on weeks after her fall and are improving with treatments here, so doubt much concussive disease but hard to assess Pt was assessed as a stroke alert early during his hospital stay: after imaging and neurologic consultation, she is NOT felt to have had a stroke, and the symptoms involved are resolved. I discussed in detail with Dr Magdaleno of psychiatry today. At this time patient is very close to stable for medical discharge, but is in need of further mental health eval, and the patient is willing to go to [facility] for this. We had not previously taken geriatric patients to our U but Dr Magdaleno feels we can and should do this for this patient. Consideration for addition of antidepressant meds, also consultation for possible Electroconvulsive tx. I discussed in detail today with Dr Urbina of neprhology ([facility]). The patient has had severe systolic BPs and very low diastolic BPs with no murmur. Dr Urbina wonders if the systolics are really accurate. Either way, given her age, lack of CHF, and other issues it is felt that she could be harmed by aggressive treatment of her systolic BPs leading to very low mean BPs. Indeed the current regimen here has lowered the BPs to the point of causing some mild acute kidney injury over the last 2 days. Conservative systolic BP goals are felt appropriate. PLANS: -Upon review of her BPs, age, and mutiple medical issues w Dr Urbina of nephrology ([facility]) will keep systolic BP goals at 160 or less for now as long as mean BP good and otherwise doing well; continue current doses amlodipine and ARB; avoid BBlocker due to her depression -Will give gentle hydration overnight and recheck Na and Creat in am -DC maxzide due to decreasing Na and rising Creat, conservative syst BP goals -Avoid nephrotoxin medicines -Increase gabapentin to 200 mg at night, and would not increase before 4-5 days on that dose, would give entire dose at HS if dose increased, no daytime -- dosing -Raise mirtazepine to 15 mg at HS -Continue melatonin at current doses for now -Continue increased thyroid dose of 150 mcg, will need repeat TSH in 6 weeks -cog eval/therapy -PT and OT DISPO: plan on transfer to [facility] at [place] once Creat and Na stable, with reasonable BPs, possibly 12/15 or 12/16 SUBJECTIVE: Slept better last night. 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, my review: All sinus Exam: alert quite anxious today really to a state of severe debility, with continued improvement in her delirium, still with some notable mild underlining memory deficit and occasional confusion No tremor; mild generalized but no focal weakness skin warm dry color ok resps not labored lungs clear BSs heart regular abd soft nondistended nontender, bowel sounds present limbs warm, no edema iv site ok Laboratory data: On chemistry today her creatinine is up at 1.3 Her TSH is 7.6 Her B12 is greater than a 1000 Objective: Vital Signs Temp Pulse Resp BP Pulse Ox 36.6 C 60 14 156/34 H 98 12/14/17 08:04 12/14/17 08:04 12/14/17 08:04 12/14/17 08:04 12/14/17 08:04 Laboratory Results 12/13/17 02:00 12/14/17 10:30 12/13/17 12/14/17 12/15/17 06:59 06:59 06:59 Intake Total 1200 700 620 Output Total 700 Balance 500 700 620 PT 23.8 SEC (12.0-15.0) H 12/12/17 06:45 INR 2.12 (0.83-1.16) H 12/12/17 06:45 - Time Spent With Patient Time Spent with Patient: greater than 35 minutes Time Spent with Patient: Greater than 35 minutes spent on this patients care, greater than 50% of time spent counseling, educating, and coordinating care regarding the above mentioned plan. ICD10 Worksheet Patient Problems: Problems Problem Status Onset Depression Acute Hyponatremia Acute Bronchitis Acute CHF (congestive heart failure) Acute Chronic Disease Mgmt/Transitional Care Acute Hypoxia Acute Pneumonia Acute
[2017-12-14] MEDS: WARFARIN SODIUM 1 MG TAB PO SCH (16:32)
--- NOTE | 2017-12-14 16:40 | ASMTCMCOM ---
CM Note CM Note Notes: Patient had better sleep last night, RN walked her numerous times around the Unit and she even able to take a nap today. Dr. Magdaleno spoke with patient and she is interested in going to [facility] psych and possibly having ECT txs. Patient very agreeable to this plan. CM to follow. Date Signed: 12/14/2017 04:40 PM Electronically Signed By:Carline Wilson LCSW
[2017-12-14] MEDS ORDERED: NS 1,000 ML IV ONE (18:30)
[2017-12-14] MEDS: MELATONIN 3 MG TAB PO SCH (22:06)
[2017-12-14] MEDS: GABAPENTIN 100 MG CAP PO SCH (22:07)
[2017-12-14] MEDS: MIRTAZAPINE 15 MG TAB PO SCH (22:08)
[2017-12-15] MEDS: LEVOTHYROXINE 150 MCG TAB PO SCH (05:57)
[2017-12-15] MEDS ORDERED: NS 500 ML IV ONE (07:27)
[2017-12-15] MEDS: amLODIPine BESYLATE 5 MG TAB PO SCH (09:00)
[2017-12-15] MEDS: ATORVASTATIN CALCIUM 20 MG TAB PO SCH (09:55)
[2017-12-15] MEDS: LOSARTAN POTASSIUM 50 MG TAB PO SCH (12:24)
[2017-12-15] MEDS: SOTALOL HCL 80 MG TAB PO SCH ×2 (12:25→20:13)
--- NOTE | 2017-12-15 13:32 | ASMTCMCOM ---
CM Note CM Note Notes: Patient is being transferred to today. Patient's therapist stopped by. Soraida and wanted to know when patient would be going to a psych unit and told me she needs to be set up for ECT treatments. Spoke with patient's nurse who says Dr. Johnson is concerned patient may be in early stages of dementia. Dr. Magdaleno has consulted on this case, see her note in reports. It is unclear from the notes if [facility] has been asked about admission for patient so CM will need to start by calling them.Dr. Correa heads the ECT program there. Dr. Magdaleno did discuss ECT with patient who is interested in having ECT. However, the attending physicians need to be consulted regarding the concerns about early stages of dementia which may rule ECT out. Soraida has been here to see the patient several times and states she has had patient as a client for the past 2 years. I also was given the card of Sriram Barros [phone] and told he would like to talk to case management. It is unclear to me what his relation to patient is, which will need to be clarified. Sriram's card was sent to rn field case manager. Patient lives at the [place]. CM will follow. Date Signed: 12/15/2017 01:17 PM Electronically Signed By:Maria Del Carmen Arshad LCSW
--- NOTE | 2017-12-15 15:09 | SOAPPROG ---
SOAP Progress Note Assessment/Plan: Assessment: 87yo CF with hx of depression, worsening recently in context of incr psychosocial stress but also related to recent pharmacological changes and acute on chronic medical issues. 12/14/17 15:01 Met with patient this afternoon for f/u of visit last week. Patient stated, "you 're the psychiatrist, right?" but did not recall talking with me last week. Pt was notably emotionally distressed on interview 12/09 complaining of insomnia, feeling depressed, anxious, and confused, and was started on Remeron 7.5mg qhs with continuing melatonin 3mg qhs and addition of gabapentin 100mg prn off- label for anxiety and possibly sleep to avoid BZDs and minimize potential drug interactions due to concerns for possible post-concussive symptoms but also medically with resolving hyponatremia and recent expressive aphasia related to severe headache and elevated SBP. Patient was notably more calm throughout interview. Was able to state clearly that she had been on Cymbalta for yrs until a few months ago when was hospitalized with pneumonia and had confusion related to hyponatremia. She then moved out of [facility] living in her home to [place] and hd been more depressed there, not engaging with peers, not motivated to engage with peers and admitted not liking to be around old people which was depressing. She has been feeling very lonely, more so since this move. Insomnia had been increasingly problematic. With poor motivation, poor concentration, +anhedonia. Also, notably , she reports over last several weeks having increasing difficulty with perseverative thoughts and regrets about things done/not done over her life, which has increased her depression. Her PCP started her on Wellbutrin 75mg BID perhaps about 6 weeks ago, increased to 100mg BID about 1 week prior to current [facility] admission, with no improvement. She admits taking the med BID, morning and night. She stopped this med shortly before [facility] admission, but didn't start new SSRI yet Trintellex, however it seems PCP intended addition of SSRI. Regarding her fall on 11/30 and presentation to ED on 12/01, she consistently denied having hit her head hard enough to cause any LOC or even brief dazed/ confused period. Did fall while walking her dog and states she fell backwards, hitting her back first then back of her head. Does not feel that any of her prior depressive or cognitive symptoms were any worse after this, but can't be entirely sure. Pt denied any s/e to Mirtazapine started last week. Has used prn Gabapentin occasionally, not clearly sure if beneficial, but denied any s/e. States she had quite a difficult time sleeping last night and something was added, which helped, and she slept very well, but today feels not quite completely right, as if she is a little "floaty" and outside her own body. Spoke with a friend recently who reported beneficial effects to ECT, and asks about ECT as an option. Discussed this briefly, and meds, and indications, and current depression with her passive suicidal thoughts, and her recent worsening mood and her concurrent medical problems as well as contributions of her medical problems to her symptoms, her insomnia affecting cognition and depression/mood (especially with HS dosing of Wellbutrin for past several weeks) , incr perseverations possibly since off Cymbalta (which had reportedly been discontinued to not have any additional contributing factors to her hyponatremia ), etc. Also discussed option of inpatient behavioral health option for more acute stabilization and safety. Patient was very willing to do this. Feels very depressed, with anhedonia, and continuing suicidal ideation, stating she did not want to live like this, but just didn't know how she would do it or what she would to, admitting she'd probably be too afraid to do something if she did have a plan to harm herself. She denied having any plan or intent to harm herself at this time, and does feel hopeful about getting help on inpatient behavioral health, asking also to find out more about ECT and have ECT be considered for her. MSE: calm, cooperative, casually dressed, with pants wet she immediately volunteered was due to spilled H20 not urine (no urine smell). NULATO but with hearing aid and heard well enough for appropriate interview. nml speech vol/ rate. engaging in conversation, mood depressed. affect dysphoric. denied any ah /vh or other psychotic sxs. thoughts linear and reality-based, expressing good insight and ability to talk quite candidly about her situation, frustrations and stressors. judgment seems intact. alert/oriented to month, day, year, situation not date. DX: Major Depressive Disorder, recurrent, severe, with passive SI Neurocognitive disorder, unspecified PLAN: discussed case/care plan with aircraft body repairer Dr. Johnson. -increase Mirtazapine to 15mg qhs -d/c Trazodone (received 50mg x 1 last night). Although this did help, would d/ c to simplify meds, and try first to maximize use of other agents for sleep she is currently taking. If needed again at a later time, would use lower dose, like 25mg or even 12.5mg. -Continue Gabapentin 200mg qhs for now (also was increased from 100mg to 200mg last night, and had been helping with sleep the first few days until recently), and continue prn use if helping anxiety (and also sleep) for now. Continues on Melatonin 3mg qhs, which also has room to be increased. -Pt acknowledges untreated sleep apnea. Didn't tolerate mask in past. Has discussed other options/newer masks with primary team. Wears O2 at HS. Untreated SUBHASH can also cause/worsen depression as well as medical problems and executive function. -Would hold on restarting other antidepressants at this time. This can be addressed on inpatient psychiatry, and patient also interested in discussing ECT option. -ST, OT involvement as needed. Would continue to follow and assess cognition objectively, and home safety eval by OT. She presently She reports her fall and hitting head was not severe, but at her age, and with baseline cerebral vascular disease/changes, and reports (by son to RN) of worsening symptoms recently (although hyponatremia and related encephalopathy larger component), post concussive component still needs to be considered. 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 Anticipate patient will need extra supervision once back at [place], with medication monitoring, and also monitoring of diet/fluid intake and encouraging community involvement to decrease isolation. -primary team adjusted medication for hypothyroidism, which also inadequately treated will contribute to depression -Does not currently meet criteria for M-1. Agreeing for inpatient psychiatry once medically clear. Primary team still making some med changes and will consult nephrology for her HTN. Would coordinate with [facility] for 3N admit once medically cleared. Behavioral Health will continue to follow while on inpatient medical unit. Please call with any questions. Thank you. Objective: Vital Signs Temp Pulse Resp BP Pulse Ox 36.6 C 61 12 181/44 H 91 L 12/15/17 12:55 12/15/17 12:55 12/15/17 08:00 12/15/17 12:55 12/15/17 12:55 Laboratory Results 12/13/17 02:00 12/15/17 11:05 12/14/17 12/15/17 12/16/17 05:59 05:59 05:59 Intake Total 700 2417 Output Total 2 Balance 700 2415 PT 23.8 SEC (12.0-15.0) H 12/12/17 06:45 INR 2.12 (0.83-1.16) H 12/12/17 06:45 - Time Spent With Patient Time Spent With Patient: 45min - Pending Discharge Pending Discharge Within 24 Hours: No Pending Discharge Within 48 Hours: No ICD10 Worksheet Patient Problems: Problems Problem Status Onset Depression Acute Hyponatremia Acute Bronchitis Acute CHF (congestive heart failure) Acute Chronic Disease Mgmt/Transitional Care Acute Hypoxia Acute Pneumonia Acute
[2017-12-15] MEDS: WARFARIN SODIUM 1 MG TAB PO SCH (16:46)
--- NOTE | 2017-12-15 16:54 | ASMTCMCOM ---
CM Note CM Note Notes: CM spoke w/ Dr. Harp regarding d/c POC. Pt is medically cleared to go for ECT. ROSA received a call from Jaci, in [facility]. Jaci will come evaluate pt for ECT and speak to the psychiatrist on 3N to see if he/she will accept. CM left a msg for Doyle and requested a call back. CM to follow. Plan: ECT; 3N Date Signed: 12/15/2017 04:53 PM Electronically Signed By:JOSEMANUEL Gonzalze
--- NOTE | 2017-12-15 17:11 | HOSPPROG ---
Hospitalist Progress Note Assessment/Plan: 87 yo F w depression, htn, mild hyponatremia hyponatremia: mild stable follow htn: continue current meds agree w holding maxzide given TARIQ TARIQ: improving proph: LMWH ? seizures: unlikley dispo: voluntary dc to behavioral health Subjective: felt over medicated overnight Objective: Vital Signs Temp Pulse Resp BP Pulse Ox 36.8 C 70 20 145/48 H 94 12/15/17 16:00 12/15/17 16:00 12/15/17 16:00 12/15/17 16:00 12/15/17 16:00 Laboratory Results 12/13/17 02:00 12/15/17 11:05 12/14/17 12/15/17 12/16/17 05:59 05:59 05:59 Intake Total 700 2417 Output Total 2 Balance 700 2415 PT 23.8 SEC (12.0-15.0) H 12/12/17 06:45 INR 2.12 (0.83-1.16) H 12/12/17 06:45 - Physical Exam Constitutional: no apparent distress, appears nourished Eyes: PERRL, anicteric sclera Ears, Nose, Mouth, Throat: moist mucous membranes, hearing normal Cardiovascular: regular rate and rhythym, no murmur, rub, or gallop Respiratory: no respiratory distress, no rales or rhonchi Gastrointestinal: normoactive bowel sounds, soft, non-tender abdomen Genitourinary: No huang in urethra Skin: warm, normal color Musculoskeletal: full muscle strength, no muscle tenderness ICD10 Worksheet Patient Problems: Problems Problem Status Onset Depression Acute Hyponatremia Acute Bronchitis Acute CHF (congestive heart failure) Acute Chronic Disease Mgmt/Transitional Care Acute Hypoxia Acute Pneumonia Acute
[2017-12-15] MEDS: MIRTAZAPINE 15 MG TAB PO SCH (20:13)
[2017-12-15] MEDS: GABAPENTIN 100 MG CAP PO SCH (20:13)
[2017-12-15] MEDS: MELATONIN 3 MG TAB PO SCH (20:14)
[2017-12-16] MEDS: ACETAMINOPHEN 325 MG TAB PO PRN (02:17)
[2017-12-16] MEDS: LEVOTHYROXINE 150 MCG TAB PO SCH (02:18)
[2017-12-16] MEDS: SOTALOL HCL 80 MG TAB PO SCH ×2 (08:06→20:57)
[2017-12-16] MEDS: amLODIPine BESYLATE 5 MG TAB PO SCH (08:06)
[2017-12-16] MEDS: LOSARTAN POTASSIUM 50 MG TAB PO SCH (08:07)
[2017-12-16] MEDS: ATORVASTATIN CALCIUM 20 MG TAB PO SCH (08:07)
[2017-12-16] MEDS: WARFARIN SODIUM 1 MG TAB PO SCH (15:57)
--- NOTE | 2017-12-16 16:36 | HOSPPROG ---
Hospitalist Progress Note Assessment/Plan: 87 yo F w depression, htn, mild hyponatremia hyponatremia: mild stable follow htn: continue current meds agree w holding maxzide given TARIQ TARIQ: improving proph: LMWH ? seizures: unlikley depression: appears gravely disabled. psychiatry MD Dilma) had been following the patient w interest and recommended inpatient hospitalization, creating an expectation in the patient. With new providers, the plan has been suddenly reversed with no documentation in the chart. I am currently attempting to contact the providers involved for clarification dispo: voluntary dc to behavioral health Subjective: inexplicably, psychiatry has reversed decision to hospitalize her Objective: Vital Signs Temp Pulse Resp BP Pulse Ox 36.8 C 61 18 176/48 H 98 12/16/17 14:31 12/16/17 14:31 12/16/17 14:31 12/16/17 14:31 12/16/17 14:31 Laboratory Results 12/13/17 02:00 12/15/17 11:05 12/15/17 12/16/17 12/17/17 05:59 05:59 05:59 Intake Total 2417 400 Output Total 2 Balance 2415 400 PT 23.8 SEC (12.0-15.0) H 12/12/17 06:45 INR 2.12 (0.83-1.16) H 12/12/17 06:45 - Physical Exam Constitutional: no apparent distress, appears nourished Eyes: PERRL, anicteric sclera Ears, Nose, Mouth, Throat: moist mucous membranes, hearing normal Cardiovascular: regular rate and rhythym, no murmur, rub, or gallop Respiratory: no respiratory distress, no rales or rhonchi Gastrointestinal: normoactive bowel sounds, soft, non-tender abdomen Genitourinary: no bladder fullness, No huang in urethra Skin: warm, normal color Musculoskeletal: full muscle strength ICD10 Worksheet Patient Problems: Problems Problem Status Onset Depression Acute Hyponatremia Acute Bronchitis Acute CHF (congestive heart failure) Acute Chronic Disease Mgmt/Transitional Care Acute Hypoxia Acute Pneumonia Acute
[2017-12-16] MEDS: GABAPENTIN 100 MG CAP PO SCH (20:57)
[2017-12-16] MEDS: MELATONIN 3 MG TAB PO SCH (20:57)
[2017-12-16] MEDS: MIRTAZAPINE 15 MG TAB PO SCH (20:58)
[2017-12-17] MEDS: ACETAMINOPHEN 325 MG TAB PO PRN (02:18)
[2017-12-17] MEDS: LEVOTHYROXINE 150 MCG TAB PO SCH (02:18)
[2017-12-17] MEDS: SOTALOL HCL 80 MG TAB PO SCH ×2 (08:19→22:14)
[2017-12-17] MEDS: LOSARTAN POTASSIUM 50 MG TAB PO SCH (08:20)
[2017-12-17] MEDS: amLODIPine BESYLATE 5 MG TAB PO SCH (08:20)
[2017-12-17] MEDS: ATORVASTATIN CALCIUM 20 MG TAB PO SCH (08:20)
--- NOTE | 2017-12-17 14:52 | ASMTCMCOM ---
CM Note CM Note Notes: [facility]. Will send referrals to [facility] facilities that will be appropriate for this patient. Date Signed: 12/17/2017 02:51 PM Electronically Signed By:Sheeba Villegas RN
--- NOTE | 2017-12-17 16:39 | HOSPPROG ---
Hospitalist Progress Note Assessment/Plan: 87 yo F w depression, htn, mild hyponatremia hyponatremia: mild stable repeat in AM htn: continue current meds agree w holding maxzide given TARIQ TARIQ: improving proph: LMWH ? seizures: unlikley depression: behavioral health has fallen through alternative plans in have started dispo: pending Subjective: not accepted at [facility] Objective: Vital Signs Temp Pulse Resp BP Pulse Ox 36.8 C 61 16 146/44 H 94 12/17/17 14:58 12/17/17 14:58 12/17/17 14:58 12/17/17 14:58 12/17/17 14:58 Laboratory Results 12/13/17 02:00 12/15/17 11:05 12/16/17 12/17/17 12/18/17 05:59 05:59 05:59 Intake Total 400 500 Balance 400 500 PT 23.8 SEC (12.0-15.0) H 12/12/17 06:45 INR 2.12 (0.83-1.16) H 12/12/17 06:45 - Physical Exam Constitutional: no apparent distress, appears nourished Eyes: PERRL, anicteric sclera Ears, Nose, Mouth, Throat: moist mucous membranes, hearing normal Cardiovascular: regular rate and rhythym, no murmur, rub, or gallop Respiratory: no respiratory distress Gastrointestinal: normoactive bowel sounds, soft, non-tender abdomen Genitourinary: no bladder fullness Skin: warm, no fluctuance Musculoskeletal: full muscle strength Neurologic: AAOx3, sensation intact bilaterally ICD10 Worksheet Patient Problems: Problems Problem Status Onset Depression Acute Hyponatremia Acute Bronchitis Acute CHF (congestive heart failure) Acute Chronic Disease Mgmt/Transitional Care Acute Hypoxia Acute Pneumonia Acute
[2017-12-17] MEDS: WARFARIN SODIUM 1 MG TAB PO SCH (16:53)
--- NOTE | 2017-12-17 17:58 | ASMTCMCOM ---
CM Note CM Note Notes: ROSA and spoke w/pt, to let her know that she was declined by the behavioral health unit, pt still interested in a facility feeling that she needs some counseling help. CM let pt know that referrals were faxed to other facilities but that she may also be able to go home with additional support that her Account Administrator Sriram [phone] is working on. CM called Sriram with pt's permission and he has set up close to 24hr care with [facility], she will have full overnight care. He states that with the addition of home health and [facility] that [facility] will be well covered. Sriram has been in touch with both sons, son Van is MDPOA but pt can make her own decisions. Pt continues to be interested in ECT, Van will be out of town for 3 weeks and wishes to wait until he gets home before any decisions are made. Sriram anticipates pt will be dc'd on Wednesday and has scheduled [facility] to start at 1pm. CM will meet again with pt in am. DC Plan: Behavioral facility vs Home with private pay care and home health Date Signed: 12/17/2017 05:57 PM Electronically Signed By:Diamond Damon RN
[2017-12-17] MEDS: MIRTAZAPINE 15 MG TAB PO SCH (22:14)
[2017-12-17] MEDS: MELATONIN 3 MG TAB PO SCH (22:15)
[2017-12-17] MEDS: GABAPENTIN 100 MG CAP PO SCH (22:15)
[2017-12-18 04:56] LABS: INR 2.99 (0.83-1.16); PROTIME(PATIENT) 30.9 SEC (12.0-15.0)
[2017-12-18] MEDS: LEVOTHYROXINE 150 MCG TAB PO SCH (07:25)
[2017-12-18] MEDS: LOSARTAN POTASSIUM 50 MG TAB PO SCH (08:55)
[2017-12-18] MEDS: amLODIPine BESYLATE 5 MG TAB PO SCH (08:55)
[2017-12-18] MEDS: ATORVASTATIN CALCIUM 20 MG TAB PO SCH (08:56)
[2017-12-18] MEDS: SOTALOL HCL 80 MG TAB PO SCH ×2 (08:56→21:00)
--- NOTE | 2017-12-18 10:16 | ASMTCMCOM ---
CM Note CM Note Notes: Spoke w/ pt re; conversation I had with her ChcfLamination Inspector, that he is coordinating pt's return home w/ 24hr care + home care and possible ECT as an outpt. Pt is agreeable to plan. DC Plan: Home to the [facility] w/private pay care with [facility] and [facility] (RN/GREG) Date Signed: 12/18/2017 10:15 AM Electronically Signed By:Diamond Damon RN
--- NOTE | 2017-12-18 10:46 | HOSPPROG ---
Hospitalist Progress Note Assessment/Plan: 87 yo F w depression, htn, mild hyponatremia hyponatremia: mild stable repeat in AM htn: continue current meds agree w holding maxzide given TARIQ TARIQ: improving insomnia: trial of low dose melatonin proph: LMWH ? seizures: unlikley depression: behavioral health has fallen through alternative plans in have started dispo: pending Subjective: sodium has normalized. has plan for outpt care set up by private senior property manager Objective: Vital Signs Temp Pulse Resp BP Pulse Ox 36.4 C 61 18 168/44 H 92 12/18/17 07:44 12/18/17 08:56 12/18/17 07:44 12/18/17 08:56 12/18/17 07:44 Laboratory Results 12/13/17 02:00 12/18/17 04:10 12/17/17 12/18/17 12/19/17 05:59 05:59 05:59 Intake Total 500 Balance 500 PT 30.9 SEC (12.0-15.0) H 12/18/17 04:10 INR 2.99 (0.83-1.16) H 12/18/17 04:10 - Physical Exam Constitutional: no apparent distress, appears nourished Eyes: PERRL, anicteric sclera Ears, Nose, Mouth, Throat: moist mucous membranes Cardiovascular: regular rate and rhythym, no murmur, rub, or gallop Respiratory: no respiratory distress, no rales or rhonchi Gastrointestinal: normoactive bowel sounds, soft, non-tender abdomen Genitourinary: no bladder fullness, No huang in urethra Skin: warm Musculoskeletal: full muscle strength Neurologic: AAOx3 ICD10 Worksheet Patient Problems: Problems Problem Status Onset Depression Acute Hyponatremia Acute Bronchitis Acute CHF (congestive heart failure) Acute Chronic Disease Mgmt/Transitional Care Acute Hypoxia Acute Pneumonia Acute
[2017-12-18] MEDS: WARFARIN SODIUM 1 MG TAB PO SCH (16:58)
[2017-12-18] MEDS: GABAPENTIN 100 MG CAP PO SCH (20:59)
[2017-12-18] MEDS: MELATONIN 3 MG TAB PO SCH (20:59)
[2017-12-18] MEDS: MIRTAZAPINE 15 MG TAB PO SCH (21:00)
[2017-12-19] MEDS: ACETAMINOPHEN 325 MG TAB PO PRN (01:49)
[2017-12-19] MEDS: LEVOTHYROXINE 150 MCG TAB PO SCH (01:49)
[2017-12-19 05:22] LABS: INR 3.09 (0.83-1.16); PROTIME(PATIENT) 31.7 SEC (12.0-15.0)
[2017-12-19] MEDS: LOSARTAN POTASSIUM 50 MG TAB PO SCH (10:05)
[2017-12-19] MEDS: amLODIPine BESYLATE 5 MG TAB PO SCH (10:05)
[2017-12-19] MEDS: ATORVASTATIN CALCIUM 20 MG TAB PO SCH (10:05)
[2017-12-19] MEDS: SOTALOL HCL 80 MG TAB PO SCH ×2 (10:06→22:03)
--- NOTE | 2017-12-19 15:05 | HOSPPROG ---
Hospitalist Progress Note Assessment/Plan: 87 yo F w depression, htn, mild hyponatremia hyponatremia: mild stable repeat in AM htn: continue current meds agree w holding maxzide given TARIQ TARIQ: improving insomnia: trial of low dose melatonin proph: LMWH ? seizures: unlikley depression: behavioral health has fallen through alternative plans in have started dispo: pending Subjective: remains anxious Objective: Vital Signs Temp Pulse Resp BP Pulse Ox 36.8 C 60 18 145/49 H 93 12/19/17 07:34 12/19/17 10:06 12/19/17 07:34 12/19/17 10:06 12/19/17 07:34 Laboratory Results 12/13/17 02:00 12/18/17 04:10 PT 31.7 SEC (12.0-15.0) H 12/19/17 04:20 INR 3.09 (0.83-1.16) H 12/19/17 04:20 - Physical Exam Constitutional: no apparent distress, appears nourished Eyes: PERRL, anicteric sclera Ears, Nose, Mouth, Throat: moist mucous membranes, hearing normal Cardiovascular: regular rate and rhythym, no murmur, rub, or gallop Respiratory: no respiratory distress, no rales or rhonchi Gastrointestinal: normoactive bowel sounds, soft, non-tender abdomen Genitourinary: no bladder fullness, No huang in urethra Skin: warm, normal color Musculoskeletal: full muscle strength Neurologic: AAOx3 Psychiatric: interacting appropriately ICD10 Worksheet Patient Problems: Problems Problem Status Onset Depression Acute Hyponatremia Acute Bronchitis Acute CHF (congestive heart failure) Acute Chronic Disease Mgmt/Transitional Care Acute Hypoxia Acute Pneumonia Acute
[2017-12-19] MEDS: WARFARIN SODIUM 1 MG TAB PO SCH (18:54)
[2017-12-19] MEDS: MELATONIN 3 MG TAB PO SCH (22:03)
[2017-12-19] MEDS: GABAPENTIN 100 MG CAP PO SCH (22:03)
[2017-12-19] MEDS: MIRTAZAPINE 15 MG TAB PO SCH (22:03)
[2017-12-19 22:09] VITALS: RESP 18
[2017-12-20] MEDS: LEVOTHYROXINE 150 MCG TAB PO SCH (05:22)
[2017-12-20 05:29] LABS: INR 3.65 (0.83-1.16)
[2017-12-20 07:51] VITALS: BP 153/79; PULSE 67; TEMP 98.8; O2SAT 91
[2017-12-20] MEDS: SOTALOL HCL 80 MG TAB PO SCH (09:43)
[2017-12-20] MEDS: amLODIPine BESYLATE 5 MG TAB PO SCH (09:43)
[2017-12-20] MEDS: ATORVASTATIN CALCIUM 20 MG TAB PO SCH (09:43)
[2017-12-20] MEDS: LOSARTAN POTASSIUM 50 MG TAB PO SCH (09:43)
[2017-12-20] MEDS ORDERED: DOCUSATE SODIUM 100 MG CAP PO SCH (11:15)
--- NOTE | 2017-12-20 14:52 | PDIAF ---
- Diagnosis Diagnosis: depression Code Status: Full Code - Medication Management Discharge Medications: Medications to Continue on Transfer Atorvastatin Calcium [Lipitor 20 mg (*)] 20 mg PO DAILY 07/14/14 [Last Taken 05/18] Docusate Sodium [Colace 100 MG (*)] 100 - 200 mg PO BID 07/14/14 [Last Taken 11:00] Melatonin [Melatonin 3 MG (*)] 3 mg PO HS 07/14/14 [Last Taken 12/07/17] Warfarin Sodium [Coumadin 1MG (*)] 1.5 mg PO DAILY16 10/04/15 [Last Taken ] Sotalol HCl [Betapace 80 MG (*)] 40 mg PO BID #60 tab 10/06/15 [Last Taken 12/08 09:00] Levothyroxine [Synthroid 125 mcg (*)] 125 mcg PO DAILY06 08/15/16 [Last Taken ] Ergocalciferol [Vitamin D2 (*)] 50,000 unit PO Q30D 09/22/17 [Last Taken ] Amlodipine Besylate [Norvasc] 5 mg PO DAILY #30 tablet 09/30/17 [Last Taken 05/18] Losartan Potassium [Cozaar 50 mg (*)] 100 mg PO DAILY tab 09/30/17 [Last Taken 12/08/17] Discharge Medications: Refer to the Discharge Home Medication list for PRN reason. - Orders Services needed: Home Care, Master Consulting Sales Executive Home Care Face to Face: I certify that this patient was under my care and that I had the required [id number] encounter meeting the encounter requirements on the discharge day. My findings support the fact that the patient is homebound as defined in Home Care Face to Face Continued: CMS Chapter 7 Medicare Benefits Manual 30.1.1 , The condition of the patient is such that there exists a normal inability to leave home and consequently, leaving home would require a considerable and taxing effort. - Follow Up Care Current Providers and Referrals: Patient,NotPresent [Unknown] - As per Instructions
--- NOTE | 2017-12-20 15:00 | ASMTCMCOM ---
CM Note CM Note Notes: [facility] called this morning to say they will not take the patient because they are not equipped to manage her psych meds. Contacted [facility] as they have a Behavioral Health Nurse on staff. They accepted the patient. Spoke with patient's son, Doyle and he is comfortable with the change. Spoke with patient's advocate Sriram Barros [phone] to let him know patient will be d/c'ed today at 4:00 and son Doyle will transport her home. Sriram was informed of the change in home health agencies. Transfer of Care summary faxed to [facility]. Date Signed: 12/20/2017 03:00 PM Electronically Signed By:Maria Del Carmen Arshad LCSW
--- NOTE | 2017-12-20 15:23 | HOSPPROG ---
Hospitalist Progress Note Assessment/Plan: 87 yo F w depression, htn, mild hyponatremia hyponatremia: mild stable repeat in AM htn: continue current meds agree w holding maxzide given TARIQ TARIQ: improving insomnia: trial of low dose melatonin proph: LMWH ? seizures: unlikley depression: behavioral health has fallen through alternative plans in have started dispo: > 30 minutes on dc home today home care established Subjective: dispo plans in place Objective: Vital Signs Temp Pulse Resp BP Pulse Ox 37.1 C 67 18 153/79 H 91 L 12/20/17 07:48 12/20/17 07:48 12/20/17 07:48 12/20/17 07:48 12/20/17 07:48 Laboratory Results 12/13/17 02:00 12/18/17 04:10 12/19/17 12/20/17 12/21/17 05:59 05:59 05:59 Intake Total 500 Balance 500 PT 36.0 SEC (12.0-15.0) H 12/20/17 04:17 INR 3.65 (0.83-1.16) H 12/20/17 04:17 - Physical Exam Constitutional: no apparent distress, appears nourished Eyes: PERRL, anicteric sclera Ears, Nose, Mouth, Throat: moist mucous membranes, hearing normal Cardiovascular: regular rate and rhythym, no murmur, rub, or gallop Respiratory: no respiratory distress Gastrointestinal: normoactive bowel sounds Genitourinary: no bladder fullness Skin: normal color Neurologic: AAOx3 Psychiatric: interacting appropriately ICD10 Worksheet Patient Problems: Problems Problem Status Onset Depression Acute Hyponatremia Acute Bronchitis Acute CHF (congestive heart failure) Acute Chronic Disease Mgmt/Transitional Care Acute Hypoxia Acute Pneumonia Acute
--- NOTE | 2017-12-20 16:07 | GDS ---
[f rep st] DISCHARGE SUMMARY DISCHARGE DIAGNOSES: 1. Significant geriatric depression with suicidal ideation. 2. Hyponatremia, now resolved. 3. Hypothyroidism. 4. History of aortic valve replacement. 5. Acute kidney injury, now resolved. HOSPITAL COURSE: Please see admission history and physical by Dr. Meliton Copeland. The patient pre sented with suicidal ideation on the afternoon of the . She had a head CT. If was negative for a cute abnormality. She had a CT angiogram of her head and neck with a normal [place], normal vessels in her neck. She had a brain MRI. It showed white matter changes, otherwise unremarkable. She was seen by Neurology, who felt that the patient had severe depression, headache and aphasia in t he setting of abrupt escalation of her blood pressure. She had mild hyponatremia that was thought to be secondary to the initiation of Maxzide antihypertensive therapy. She was followed by Dr. Magdaleno of Psychiatry, started on Remeron and Neurontin with plans for dischar ge to Behavioral Health. As the psychiatrist changed over there, that plan became unavailable for re asons that are unclear to me. Ultimately, she established an outpatient home care, and is discharged home today. MEDICATIONS: New prescriptions are: Remeron, levothyroxine at a higher dose and Neurontin. /[id number]
--- NOTE | 2017-12-21 11:28 | ASDISCHSUM ---
Discharge Information Plan Status:Home with Home Health Medically Cleared to Leave:12/19/2017 Discharge Date:12/20/2017 04:46 PM D/C Disposition: ADT D/C Disposition:Home, Routine, Self-Care Projected Discharge Date:12/20/2017 11:00 AM Transportation at D/C: Discharge Delay Reason: Follow-Up Date:12/20/2017 11:00 AM Discharge Slot: Final Diagnosis: Placement Information Referral Type:*Jail/SNF Referral ID:[id number] Provider Name: Address 1: Phone Number: Address 2: Fax Number: City: Selection Factors: State: Referral Type:*Home Health Care Services Referral ID:[id number] Provider Name: Address 1: Phone Number: Address 2: Fax Number: City: Selection Factors: State: Referral Type:*Home Health Care Services Referral ID:[id number] Provider Name:[facility] Address 1:[address] [address] Address 2: City:[place] Selection Factors: State:[place] Patient Contact Information Contact Name:EDISON Relationship:Chandra Address: City: [facility] Phone: [facility] Code: Email: Financial Information Financial Class:Medicare Primary Plan Desc:MEDICARE INPATIENT Primary Plan Number:[id number] Secondary Plan Desc: OUT OF STATE [facility] Secondary Plan Number:[id number] Assessment Information LACE LACE Acuity / Level of Answers: Yes Care: Did the patient have an inpatient admission? Comorbidities - select Answers: Diabetes (uncontrolled or all that apply controlled) # of Emergency department Answers: 3-4 visits in the last 6 months Social determinants Answers: Mental health diagnosis (anxiety, depression, pers onality disorders, etc.) Score: 10 Date Signed: 12/08/2017 05:02 PM Electronically Signed By:Mai Celeste, RN [facility] Progress Note CM Note CM Note Notes: Chart reviewed and met with patient briefly in the ER prior to admission to the floor. Patient has recently moved to [facility]. She has had 2 recent visits/admissions over the past 3 months (see reports) and is "struggling" with depression. She is currently trying to adjust to her recent move from her apartment to [facility]. Patient is pleasant, oriented X4, and appropriately communicative. Patient is accompanied by a supportive friend. CM available prn discharge planning/resources Date Signed: 12/08/2017 05:14 PM Electronically Signed By:Mai Alonso RN [facility] Progress Note CM Note CM Note Notes: Spoke with Lacie who states patient does not qualify for inpatient rehab so will most likely need SNF or home health care.Spoke with Dr. Magdaleno who is doing a psych consult today. She was concerned about patient's medications. Contacted the [facility] who states even though they are an independent fci facility, they do have a program to support residents getting medication reminders, assist with getting their prescriptions filled, etc. The individual does have to be signed up for the program. Will discuss with patient and her Dr. to see if she wants to sign up. PT is recommending home care. Will discuss this with patient as well. CM following. Date Signed: 12/10/2017 12:31 PM Electronically Signed By:Maria Del Carmen Arshad LCSW [facility] Progress Note CM Note CM Note Notes: Spoke to patient and her son, Doyle. Patient has difficulty remembering. Suggested that the medication program at the [facility] might be the most helpful for patient. RN reports that patient has had many visitors since she has been in ICU. Has many friends may just need medications for her depression. Has Remeron scheduled at night but nothing for the day. Dr. Magdaleno involved. CM to follow. Date Signed: 12/12/2017 05:11 PM Electronically Signed By:Carline Wilson LCSW [facility] Progress Note CM Note CM Note Notes: Annika happy to see this CM. Has had numerous friends visit from her yazidi. She reports that her "head is swimming with information and she doesn't know what to do with it." She holds her head. When I ask if she has a headache or if I should pull down the shades she says, "no", but that she has a lot of head pressure. Patient's TSH is 6.360. She reports that she "can't live like this." Patient's therapist, Soraida Enrique, [facility] [phone] was here visiting. Soraida reports that she has been seeing patient for a few years. Soraida reports that patient does not think patient has dementia but is very depressed. Soraida feels that patient might make a good candidate for ECT txs. Soraida also suggested that CM contact Sriram Barros [phone] who can help set up resources for patient when she returns to the [facility]. Date Signed: 12/13/2017 03:32 PM Electronically Signed By:Carline Wilson LCSW [facility] Progress Note CM Note CM Note Notes: Patient had better sleep last night, RN walked her numerous times around the Unit and she even able to take a nap today. Dr. Magdaleno spoke with patient and she is interested in going to [facility] and possibly having ECT txs. Patient very agreeable to this plan. CM to follow. Date Signed: 12/14/2017 04:40 PM Electronically Signed By:Carline Wilson LCSW [facility] Progress Note CM Note CM Note Notes: Patient is being transferred to today. Patient's therapist stopped byDestiney Quigley and wanted to know when patient would be going to a psych unit and told me she needs to be set up for ECT treatments. Spoke with patient's nurse who says Dr. Johnson is concerned patient may be in early stages of dementia. Dr. Magdaleno has consulted on this case, see her note in reports. It is unclear from the notes if [facility] has been asked about admission for patient so CM will need to start by calling them.Dr. Correa heads the ECT program there. Dr. Magdaleno did discuss ECT with patient who is interested in having ECT. However, the attending physicians need to be consulted regarding the concerns about early stages of dementia which may rule ECT out. Soraida has been here to see the patient several times and states she has had patient as a client for the past 2 years. I also was given the card of Sriram Barros [phone] and told he would like to talk to case management. It is unclear to me what his relation to patient is, which will need to be clarified. Sriram's card was sent to [facility] correctional counselor/case manager. Patient lives at the [facility]. CM will follow. Date Signed: 12/15/2017 01:17 PM Electronically Signed By:Maria Del Carmen Arshad LCSW [facility] CM Progress Note CM Note CM Note Notes: CM spoke w/ Dr. Harp regarding d/c POC. Pt is medically cleared to go for ECT. CM received a call from Jaci in [facility]. Jaci will come evaluate pt for ECT and speak to the psychiatrist on 3[facility] to see if he/she will accept. CM left a msg for Doyle and requested a call back. CM to follow. Plan: ECT; [facility] Date Signed: 12/15/2017 04:53 PM Electronically Signed By:JOSEMANUEL Gonzalez [facility] CM Progress Note CM Note CM Note Notes: [facility] declines this paitent. Will send referrals to [facility] facilities that will be appropriate for this patient. Date Signed: 12/17/2017 02:51 PM Electronically Signed By:Sheeba Villegas RN [facility] CM Progress Note CM Note ROSA Note Notes: ROSA and spoke w/pt, to let her know that she was declined by the behavioral health unit, pt still interested in a facility feeling that she needs some counseling help. CM let pt know that referrals were faxed to other facilities but that she may also be able to go home with additional support that her [employer]strom Tube Tester Sriram [phone] is working on. ROSA called Sriram with pt's permission and he has set up close to 24hr care with [facility], she will have full overnight care. He states that with the addition of home health and help from [facility] that pt will be well covered. Sriram has been in touch with both sons, son Van is MDPOA but pt can make her own decisions. Pt continues to be interested in ECT, Van will be out of town for 3 weeks and wishes to wait until he gets home before any decisions are made. Sriram anticipates pt will be dc'd on Wednesday and has scheduled [facility] to start at 1pm. CM will meet again with pt in am. DC Plan: Behavioral facility vs Home with private pay care and home health Date Signed: 12/17/2017 05:57 PM Electronically Signed By:Diamond Damon RN [facility] ROSA Progress Note ROSA Note ROSA Note Notes: Spoke w/ pt re; conversation I had with her ResidentialAgricultural And Forestry Supervisor, that he is coordinating pt's return home w/ 24hr care + home care and possible ECT as an outpt. Pt is agreeable to plan. DC Plan: Home to the [facility] w/private pay care with [facility] and [facility] (ALDAIR/GREG) Date Signed: 12/18/2017 10:15 AM Electronically Signed By:Diamond Damon RN [facility] CM Progress Note CM Note CM Note Notes: [facility] called this morning to say they will not take the patient because they are not equipped to manage her psych meds. [facility] have a Behavioral Health Nurse on staff. They accepted the patient. Spoke with patient's son, Doyle and he is comfortable with the change. Spoke with patient's advocate Sriram Barros [phone] to let him know patient will be d/c'ed today at 4:00 and son Doyle will transport her home. Sriram was informed of the change in home health agencies. Transfer of Care summary faxed to [facility]. Date Signed: 12/20/2017 03:00 PM Electronically Signed By:Maria Del Carmen Arshad LCSW Case Management Discharge Plan Note Case Management Discharge Discharge Order Complete? Answers: Yes Patient to Obtain Answers: via Family Medications Transportation Arranged Answers: Family/Friends Faxed Final Orders Answers: Yes Notes: [facility] Agency/Facility Transfer Answers: Yes Notes: [facility] Printed & Faxed to [facility] Family Notified Answers: Yes Notes: Doyle, patient's son Discharge Comments Notes: Patient is being d/c'ed home today with the support of two agencies and her senior validation engineer, Sriram Barros. [facility] will help patient with housework, companionship, etc. [facility] will take care of patient's nursing needs. She is set up with a behavioral health nurse who can manage patient's new psych medications. Patient's medications have been called in to [facility] per Dr. Hrap. Doyle, patient's son will need to get copies of her records from medical records per hospital policy. Patient's son should be here at 4:00 (16:00) to transport patient back home. No furhter needs. Date Signed: 12/20/2017 04:01 PM Electronically Signed By:Maria Del Carmen Arshad LCSW Intervention Information Intervention Type:*Incorrect Registration Date of Service:12/09/2017 10:13 AM Patient Type:Inpatient Staff Member:ALDAIR Stapleton, Leticia Hours: Discipline: Severity: Comment: Intervention Type:*IM-Signed Date of Service:12/20/2017 03:48 PM Patient Type:Inpatient Staff Member:Kiana Lamas Hours: Discipline: Severity: Comment:
[2017-12-30] MEDS ORDERED: ERGOCALCIFEROL 50,000 I.UNIT CAP PO SCH (09:00)
== END 2017-12-20 16:46 | DRG 640 ==
LOC: EDUNIT# → F3E 17:46 → OBSVTOIN 20:29 → F2N 12-09 18:01 → F3E 12-15 12:37
PROVIDERS: ADMIT Family Medicine; ATTEND Family Medicine
DX: E87.1 Hypo-osmolality and hyponatremia (principal); G93.40 Encephalopathy, unspecified; F41.8 Other specified anxiety disorders; I16.1 Hypertensive emergency; T46.5X5A Adverse effect of other antihypertensive drugs, initial encounter; R47.01 Aphasia; R47.1 Dysarthria and anarthria; E03.9 Hypothyroidism, unspecified; I48.2 Chronic atrial fibrillation; G47.33 Obstructive sleep apnea (adult) (pediatric); G47.00 Insomnia, unspecified; E11.9 Type 2 diabetes mellitus without complications; I25.10 Atherosclerotic heart disease of native coronary artery without angina pectoris; E78.00 Pure hypercholesterolemia, unspecified; Z95.1 Presence of aortocoronary bypass graft; Z95.2 Presence of prosthetic heart valve; Z79.01 Long term (current) use of anticoagulants
CPT/HCPCS: 80305; 82607-90; 92507-GN; 92523-GN; 97110-GP; 97116-GP; 97161-GP; 97166-GO; 97530-GO; 97530-GP; 97532-GO; 97535-GO; G0480; G8978-GP-CI; G8979-GP-CH; G8980-GP-CI; G8987-GO-CJ; G8988-GO-CI; G9165-GN-CJ; G9166-GN-CI; J0360; J1170; Q9967

== ENCOUNTER 2018-01-16 23:52 | Observation (INO) | payer OTHER, BC ==
--- NOTE | 2018-01-17 00:07 | EDPHY ---
H & P Stated Complaint: SOB , CHF USING INCREASED O2 AT HOME. BGL 110 Time Seen by Provider: 01/17/18 00:05 HPI/ROS: HPI CHIEF COMPLAINT: Worsening shortness of breath, hypoxia HISTORY OF PRESENT ILLNESS: Patient very pleasant 88-year-old female she presents emergency room with shortness of breath progressively getting worse over the last 24-48 hours. She is unable to lay flat. Patient states for the past 24-48 hours she has had progressively worsening shortness of breath. She has been increasing her home O2. She typically wears 2 L nasal cannula she turned up to 3 L. He was notified by EMS that she was satting in the low 80s on 3 L. She sat 88-90% on 5 L. she states she is unable to lay flat. She is unsure if she has increasing lower extremity edema or not. She denies any chest pain. She states additionally she gets dyspnea with exertion. Denies productive cough, denies fever, denies chest pain. Past Medical History: Coronary artery disease, hypertension, hyperlipidemia, anxiety, depression, hyponatremia, SIADH, diabetes, severe mitral regurg, history of CAP Past Surgical History: No recent surgery. Left lower extremity skin graft. CABG Social History: Denies drugs alcohol tobacco. Resides at the [place]. Family History: Noncontributory ROS REVIEW OF SYSTEMS: A comprehensive 10 point review of systems is otherwise negative aside from elements mentioned in the history of present illness. Exam Constitutional appears well nontoxic no acute distress, mild labored breathing triage nursing summary reviewed, vital signs reviewed, awake/alert. Patient noted to be hypertensive upon. Eyes normal conjunctivae and sclera, EOMI, PERRLA. HENT normal inspection, atraumatic, moist mucus membranes, no epistaxis, neck supple/ no meningismus, no raccoon eyes. Respiratory decreased breath sounds bilaterally, mild labored. No wheezing. Cardiovascular rate normal, regular rhythm, no murmur, no edema, distal pulses normal. Gastrointestinal soft, non-tender, no rebound, no guarding, normal bowel sounds, no distension, no pulsatile mass. Genitourinary no CVA tenderness. Musculoskeletal bilateral lower extremity edema present. Left calf defect with graft in place. no midline vertebral tenderness, full range of motion, no calf swelling, no tenderness of extremities, no meningismus, good pulses, neurovascularly intact. Skin pink, warm, & dry, no rash, skin atraumatic. Neurologic awake, alert and oriented x 3, AAOx3, moves all 4 extremities equally, motor intact, sensory intact, CN II-XII intact, normal cerebellar, normal vision, normal speech. Psychiatric normal mood/affect. Heme/Lymph/Immune no lymphadenopathy. Differential Diagnosis: Includes but is not limited to in a particular order CHF, COPD, pneumonia, pulmonary hypertension, pulmonary embolism, acute coronary syndrome, viral bronchitis, bacterial pneumonia Medical Decision Making: Plan for this patient IV establishment with blood draw , full changer fixer, obtain EKG, troponin, check BNP, check D-dimer, DuoNeb breathing treatment, and re-evaluate. Thank Re-evaluation: EKG interpretation by me on record in [facility] system. Impression time of EKG 0008: Sinus rhythm rate of 68, first-degree AV block LA interval [address] elevation no ST depression no significant T-wave abnormalities. 0111: Patient is noted to be elevated BNP. And positive troponin. Coumadin level is therapeutic. She does have a positive D-dimer in the setting of hypoxia and shortness of breath positive D-dimer will proceed with CT angiogram of her chest rule out pulmonary embolism. Lab results reviewed. Normal creatinine. Elevated BNP, will give 40 mg IV Lasix. Patient pending CT angiogram chest for PE. 0147: Patient will be admitted to the hospitalist service for decompensated heart failure. IV Lasix 40 mg has been ordered. She is currently getting a CT angiogram of her chest given her positive D-dimer and hypoxia however I do think that pulmonary embolism may be unlikely given that she is on Coumadin over this will give us more information about her lung parenchyma pulmonary edema and volume status. IV Lasix has been given. Spoke with the hospitalist service Dr. Gilliland who agrees to admit. Urinalysis reviewed. She has no symptoms. Urine culture sent. CT angiogram of the chest shows no evidence of pulmonary embolism. Does show significant decompensated heart failure. Bilateral pleural effusions. Cardiomegaly. Pulmonary edema. Source: Patient, EMS - Personal History Current Tetanus/Diphtheria Vaccine: Yes Current Tetanus Diphtheria and Acellular Pertussis (TDAP): Yes Tetanus Vaccine Date: 2014 - Medical/Surgical History Hx Asthma: No Hx Chronic Respiratory Disease: No Hx Diabetes: Yes Hx Cardiac Disease: Yes Hx Renal Disease: No Hx Cirrhosis: No Hx Alcoholism: No Hx HIV/AIDS: No Hx Splenectomy or Spleen Trauma: No Other PMH: Afib, Aortic valve replacement, Bypass, Hypothyroidism, High Cholersterol, major depression, NIDDM, anxiety - Social History Smoking Status: Never smoked Constitutional: Initial Vital Signs Temperature (C) 37.5 C 01/16/18 23:56 Heart Rate 71 01/16/18 23:56 Respiratory Rate 18 01/16/18 23:56 Blood Pressure 206/57 H 01/16/18 23:56 O2 Sat (%) 94 01/16/18 23:56 O2 Delivery Mode Nasal Cannula O2 (L/minute) 2 Allergies/Adverse Reactions: adhesive Allergy (Verified 01/17/18 00:04) carbamazepine [From Tegretol] Allergy (Verified 01/17/18 00:04) Sulfa (Sulfonamide Antibiotics) Allergy (Verified 01/17/18 00:04) Home Medications: Medication Instructions Recorded Atorvastatin Calcium [Lipitor 20 20 mg PO DAILY 07/14/14 mg (*)] Docusate Sodium [Colace 100 MG (*)] 100 - 200 mg PO BID 07/14/14 Melatonin [Melatonin 3 MG (*)] 3 mg PO HS 07/14/14 Warfarin Sodium [Coumadin 1MG (*)] 1.5 mg PO DAILY16 10/04/15 Sotalol HCl [Betapace 80 MG (*)] 40 mg PO BID #60 tab 10/06/15 Ergocalciferol [Vitamin D2 (*)] 50,000 unit PO Q30D 09/22/17 Amlodipine Besylate [Norvasc] 5 mg PO DAILY #30 tablet 09/30/17 Losartan Potassium [Cozaar 50 mg 100 mg PO DAILY tab 09/30/17 (*)] Gabapentin [Neurontin 100 MG (*)] 200 mg PO HS #30 cap 12/20/17 Levothyroxine [Synthroid 150 mcg 150 mcg PO DAILY AT 6AM #30 tab 12/20/17 (*)] Mirtazapine 15 mg PO HS #30 tablet 12/20/17 Medical Decision Making - Data Points Laboratory Results: Laboratory Results 01/17/18 00:01 01/17/18 00:01 01/17/18 01/17/18 01/17/18 00:45 00:01 00:01 WBC RBC Hgb Hct MCV MCH MCHC RDW Plt Count MPV Neut % (Auto) Lymph % (Auto) Mathews % (Auto) Eos % (Auto) Baso % (Auto) Nucleat RBC Rel Count Absolute Neuts (auto) Absolute Lymphs (auto) Absolute Monos (auto) Absolute Eos (auto) Absolute Basos (auto) Absolute Nucleated RBC Immature Gran % Immature Gran # PT 24.5 SEC H SEC (12.0-15.0) INR 2.20 H (0.83-1.16) APTT 35.1 SEC SEC (23.0-38.0) D-Dimer 0.92 ug/mLFEU H ug/mLFEU (0.00-0.50) Sodium 142 mEq/L mEq/L (135-145) Potassium 4.7 mEq/L mEq/L (3.5-5.2) Chloride 106 mEq/L mEq/L (97-110) Carbon Dioxide 26 mEq/l mEq/l (22-31) Anion Gap 10 mEq/L mEq/L (8-16) BUN 30 mg/dL H mg/dL (7-23) Creatinine 0.8 mg/dL mg/dL (0.6-1.0) Estimated GFR > 60 Glucose 92 mg/dL mg/dL (70-100) Calcium 9.6 mg/dL mg/dL (8.5-10.4) Magnesium 1.8 mg/dL mg/dL (1.6-2.3) Total Bilirubin 0.7 mg/dL mg/dL (0.1-1.4) Conjugated Bilirubin 0.3 mg/dL mg/dL (0.0-0.5) Unconjugated Bilirubin 0.4 mg/dL mg/dL (0.0-1.1) AST 61 IU/L H IU/L (14-46) ALT 117 IU/L H IU/L (9-52) Alkaline Phosphatase 87 IU/L IU/L (38-126) Creatine Kinase 47 IU/L IU/L (0-156) CK-MB (CK-2) Fraction 1.12 ng/mL ng/mL (0.00-3.19) Troponin I 0.090 ng/mL H ng/mL (0.000-0.034) NT-Pro-B Natriuret Pep 3830 pg/mL H pg/mL (0-450) Total Protein 6.6 g/dL g/dL (6.3-8.2) Albumin 3.8 g/dL g/dL (3.5-5.0) Lipase 48 IU/L IU/L (23-300) Urine Color YELLOW Urine Appearance CLEAR Urine pH 6.0 (5.0-7.5) Ur Specific Beaver 1.013 (1.002-1.030) Urine Protein 1+ H (NEGATIVE) Urine Ketones NEGATIVE (NEGATIVE) Urine Blood NEGATIVE (NEGATIVE) Urine Nitrate NEGATIVE (NEGATIVE) Urine Bilirubin NEGATIVE (NEGATIVE) Urine Urobilinogen NEGATIVE EU EU (0.2-1.0) Ur Leukocyte Esterase 3+ H (NEGATIVE) Urine RBC 1-3 /hpf /hpf (0-3) Urine WBC 25-50 /hpf H /hpf (0-3) Ur Epithelial Cells TRACE /lpf /lpf (NONE-1+) Urine Bacteria TRACE /hpf H /hpf (NONE SEEN) Urine Glucose NEGATIVE (NEGATIVE) 01/17/18 00:01 WBC 10.49 10^3/uL H 10^3/uL (3.80-9.50) RBC 3.00 10^6/uL L 10^6/uL (4.18-5.33) Hgb 9.1 g/dL L g/dL (12.6-16.3) Hct 28.3 % L % (38.0-47.0) MCV 94.3 fL fL (81.5-99.8) MCH 30.3 pg pg (27.9-34.1) MCHC 32.2 g/dL L g/dL (32.4-36.7) RDW 14.4 % % (11.5-15.2) Plt Count 237 10^3/uL 10^3/uL (150-400) MPV 9.7 fL fL (8.7-11.7) Neut % (Auto) 69.6 % % (39.3-74.2) Lymph % (Auto) 15.2 % % (15.0-45.0) Mathews % (Auto) 10.6 % % (4.5-13.0) Eos % (Auto) 2.7 % % (0.6-7.6) Baso % (Auto) 0.7 % % (0.3-1.7) Nucleat RBC Rel Count 0.0 % % (0.0-0.2) Absolute Neuts (auto) 7.31 10^3/uL H 10^3/uL (1.70-6.50) Absolute Lymphs (auto) 1.59 10^3/uL 10^3/uL (1.00-3.00) Absolute Monos (auto) 1.11 10^3/uL H 10^3/uL (0.30-0.80) Absolute Eos (auto) 0.28 10^3/uL 10^3/uL (0.03-0.40) Absolute Basos (auto) 0.07 10^3/uL 10^3/uL (0.02-0.10) Absolute Nucleated RBC 0.00 10^3/uL 10^3/uL (0-0.01) Immature Gran % 1.2 % H % (0.0-1.1) Immature Gran # 0.13 10^3/uL H 10^3/uL (0.00-0.10) PT INR APTT D-Dimer Sodium Potassium Chloride Carbon Dioxide Anion Gap BUN Creatinine Estimated GFR Glucose Calcium Magnesium Total Bilirubin Conjugated Bilirubin Unconjugated Bilirubin AST ALT Alkaline Phosphatase Creatine Kinase CK-MB (CK-2) Fraction Troponin I NT-Pro-B Natriuret Pep Total Protein Albumin Lipase Urine Color Urine Appearance Urine pH Ur Specific Beaver Urine Protein Urine Ketones Urine Blood Urine Nitrate Urine Bilirubin Urine Urobilinogen Ur Leukocyte Esterase Urine RBC Urine WBC Ur Epithelial Cells Urine Bacteria Urine Glucose Medications Given: Discontinued Medications Furosemide (Lasix Injection) 40 mg IVP EDNOW ONE Stop: 01/17/18 01:08 Last Admin: 01/17/18 01:14 Dose: 40 mg Departure - Departure Disposition: [facility] Inpatient Acute Clinical Impression: CHF (congestive heart failure) Qualifiers: Heart failure type: other Qualified Code(s): I50.9 - Heart failure, unspecified Condition: Fair
--- NOTE | 2018-01-17 00:11 | CPEKG ---
Heart Rate: 68 RR Interval: 882 P-R Interval: 208 QRSD Interval: 90 QT Interval: 416 QTC Interval: 443 P [place]: -76 QRS [place]: 68 T Wave [place]: 51 EKG Severity - OTHERWISE NORMAL ECG - EKG Impression: SINUS OR ECTOPIC ATRIAL RHYTHM EKG Impression: ATRIAL PREMATURE COMPLEX Electronically Signed By: Chun Weinstein 17-Jan-2018 07:22:14
[2018-01-17 00:48] LABS: PLATELET COUNT 237 10^3/uL (150-400)
[2018-01-17 00:50] LABS: CREATINE KINASE 47 IU/L (0-156)
[2018-01-17 01:00] LABS: INR 2.2 (0.83-1.16); PROTIME(PATIENT) 24.5 SEC (12.0-15.0)
[2018-01-17] MEDS ORDERED: FUROSEMIDE 40 MG/4 ML VIAL IVP ONE (01:07)
[2018-01-17] MEDS ORDERED: IOPAMIDOL (ISOVUE 370) 100 ML BTL IV ONE (01:23)
[2018-01-17] MEDS ORDERED: ONDANSETRON 4 MG/2 ML VIAL IVP PRN (01:49)
[2018-01-17] MEDS ORDERED: ACETAMINOPHEN 325 MG TAB PO PRN (01:49)
[2018-01-17] MEDS ORDERED: ONDANSETRON DISINTEGRATING 4 MG TAB PO PRN (01:49)
--- NOTE | 2018-01-17 04:01 | PDGENHP ---
History and Physical - Chief Complaint Shortness of breath - History of Present Illness 88 yo F w/ hx of AF, dCHF, AVR, and CABG presents with MUSTAFA and orthopnea. Patient saw her pepper cutter Dr. Galaviz on 01/03 and was complaining of weakness but noted to be euvolemic. Since that visit she has developed progressive dyspnea on exertion, orthopnea, and lower extremity swelling. She denies recent illness or chest pain. Work-up in the ED c/w CHF exacerbation noting pulmonary edema and elevated BNP. She does not take diuretics as an outpatient. History Information - Allergies/Home Medication List Allergies/Adverse Reactions: adhesive Allergy (Verified 01/17/18 00:04) carbamazepine [From Tegretol] Allergy (Verified 01/17/18 00:04) Sulfa (Sulfonamide Antibiotics) Allergy (Verified 01/17/18 00:04) Home Medications: Atorvastatin Calcium [Lipitor 20 mg (*)] 20 mg PO DAILY 07/14/14 [Last Taken 05/18] Docusate Sodium [Colace 100 MG (*)] 100 - 200 mg PO BID 07/14/14 [Last Taken 11:00] Melatonin [Melatonin 3 MG (*)] 3 mg PO HS 07/14/14 [Last Taken 12/07/17] Warfarin Sodium [Coumadin 1MG (*)] 1.5 mg PO DAILY16 10/04/15 [Last Taken ] Ergocalciferol [Vitamin D2 (*)] 50,000 unit PO Q30D 09/22/17 [Last Taken ] I have personally reviewed and updated: family history, medical history - Past Medical History atrial fibrillation, coronary artery disease, CHF, hypertension - Surgical History Reports: coronary bypass surgery Additional surgical history: Bioprosthetic AVR - Family History Positive for: CAD - Social History Smoking Status: Never smoked Review of Systems Review of Systems: ROS: 10pt was reviewed & negative except for what was stated in HPI & below Physical Exam Physical Exam: Temp Pulse Resp BP Pulse Ox 36.8 C 62 17 158/49 H 98 01/17/18 03:15 01/17/18 03:15 01/17/18 03:15 01/17/18 03:15 01/17/18 03:15 O2 (L/minute) 4 Constitutional: no apparent distress, not in pain Eyes: PERRL, EOMI Ears, Nose, Mouth, Throat: moist mucous membranes, no oral mucosal ulcers Cardiovascular: regular rate and rhythym, systolic murmur, diastolic murmur, JVD (2 cm above clavicle @ 30 degrees), edema (2+ PETR) Respiratory: no respiratory distress, inspiratory crackles Gastrointestinal: normoactive bowel sounds, soft, non-tender abdomen Skin: warm, normal color Musculoskeletal: full muscle strength, other (Deformity on lateral LLE) Neurologic: AAOx3, CN II-XII Intact Psychiatric: interacting appropriately, not anxious Lab Data & Imaging Review 01/17/18 00:01 01/17/18 00:01 WBC 10.49 10^3/uL (3.80-9.50) H 01/17/18 00:01 RBC 3.00 10^6/uL (4.18-5.33) L 01/17/18 00:01 Hgb 9.1 g/dL (12.6-16.3) L 01/17/18 00:01 Hct 28.3 % (38.0-47.0) L 01/17/18 00:01 MCV 94.3 fL (81.5-99.8) 01/17/18 00:01 MCH 30.3 pg (27.9-34.1) 01/17/18 00:01 MCHC 32.2 g/dL (32.4-36.7) L 01/17/18 00:01 RDW 14.4 % (11.5-15.2) 01/17/18 00:01 Plt Count 237 10^3/uL (150-400) 01/17/18 00:01 MPV 9.7 fL (8.7-11.7) 01/17/18 00:01 Neut % (Auto) 69.6 % (39.3-74.2) 01/17/18 00:01 Lymph % (Auto) 15.2 % (15.0-45.0) 01/17/18 00:01 Whitman % (Auto) 10.6 % (4.5-13.0) 01/17/18 00:01 Eos % (Auto) 2.7 % (0.6-7.6) 01/17/18 00:01 Baso % (Auto) 0.7 % (0.3-1.7) 01/17/18 00:01 Nucleat RBC Rel Count 0.0 % (0.0-0.2) 01/17/18 00:01 Absolute Neuts (auto) 7.31 10^3/uL (1.70-6.50) H 01/17/18 00:01 Absolute Lymphs (auto) 1.59 10^3/uL (1.00-3.00) 01/17/18 00:01 Absolute Monos (auto) 1.11 10^3/uL (0.30-0.80) H 01/17/18 00:01 Absolute Eos (auto) 0.28 10^3/uL (0.03-0.40) 01/17/18 00:01 Absolute Basos (auto) 0.07 10^3/uL (0.02-0.10) 01/17/18 00:01 Absolute Nucleated RBC 0.00 10^3/uL (0-0.01) 01/17/18 00:01 Immature Gran % 1.2 % (0.0-1.1) H 01/17/18 00:01 Immature Gran # 0.13 10^3/uL (0.00-0.10) H 01/17/18 00:01 PT 24.5 SEC (12.0-15.0) H 01/17/18 00:01 INR 2.20 (0.83-1.16) H 01/17/18 00:01 APTT 35.1 SEC (23.0-38.0) 01/17/18 00:01 D-Dimer 0.92 ug/mLFEU (0.00-0.50) H 01/17/18 00:01 Sodium 142 mEq/L (135-145) 01/17/18 00:01 Potassium 4.7 mEq/L (3.5-5.2) 01/17/18 00:01 Chloride 106 mEq/L (97-110) 01/17/18 00:01 Carbon Dioxide 26 mEq/l (22-31) 01/17/18 00:01 Anion Gap 10 mEq/L (8-16) 01/17/18 00:01 BUN 30 mg/dL (7-23) H 01/17/18 00:01 Creatinine 0.8 mg/dL (0.6-1.0) 01/17/18 00:01 Estimated GFR > 60 01/17/18 00:01 Glucose 92 mg/dL (70-100) 01/17/18 00:01 Calcium 9.6 mg/dL (8.5-10.4) 01/17/18 00:01 Magnesium 1.8 mg/dL (1.6-2.3) 01/17/18 00:01 Total Bilirubin 0.7 mg/dL (0.1-1.4) 01/17/18 00:01 Conjugated Bilirubin 0.3 mg/dL (0.0-0.5) 01/17/18 00:01 Unconjugated Bilirubin 0.4 mg/dL (0.0-1.1) 01/17/18 00:01 AST 61 IU/L (14-46) H 01/17/18 00:01 ALT 117 IU/L (9-52) H 01/17/18 00:01 Alkaline Phosphatase 87 IU/L (38-126) 01/17/18 00:01 Creatine Kinase 47 IU/L (0-156) 01/17/18 00:01 CK-MB (CK-2) Fraction 1.12 ng/mL (0.00-3.19) 01/17/18 00:01 Troponin I 0.090 ng/mL (0.000-0.034) H 01/17/18 00:01 NT-Pro-B Natriuret Pep 3830 pg/mL (0-450) H 01/17/18 00:01 Total Protein 6.6 g/dL (6.3-8.2) 01/17/18 00:01 Albumin 3.8 g/dL (3.5-5.0) 01/17/18 00:01 Lipase 48 IU/L (23-300) 01/17/18 00:01 Urine Color YELLOW 01/17/18 00:45 Urine Appearance CLEAR 01/17/18 00:45 Urine pH 6.0 (5.0-7.5) 01/17/18 00:45 Ur Specific [place] 1.013 (1.002-1.030) 01/17/18 00:45 Urine Protein 1+ (NEGATIVE) H 01/17/18 00:45 Urine Ketones NEGATIVE (NEGATIVE) 01/17/18 00:45 Urine Blood NEGATIVE (NEGATIVE) 01/17/18 00:45 Urine Nitrate NEGATIVE (NEGATIVE) 01/17/18 00:45 Urine Bilirubin NEGATIVE (NEGATIVE) 01/17/18 00:45 Urine Urobilinogen NEGATIVE EU (0.2-1.0) 01/17/18 00:45 Ur Leukocyte Esterase 3+ (NEGATIVE) H 01/17/18 00:45 Urine RBC 1-3 /hpf (0-3) 01/17/18 00:45 Urine WBC 25-50 /hpf (0-3) H 01/17/18 00:45 Ur Epithelial Cells TRACE /lpf (NONE-1+) 01/17/18 00:45 Urine Bacteria TRACE /hpf (NONE SEEN) H 01/17/18 00:45 Urine Glucose NEGATIVE (NEGATIVE) 01/17/18 00:45 Imaging Review: CTPE Prelim: No PE CHF with pleural effusions. Coronary arterial calcs shotty adenopathy Prelim called to ER@ 0215 hrs Visualized and Interpreted Chest x-ray results: Yes Visualized and Interpreted EKG results: Yes EKG Interpretation: Positive for: normal sinsus rhythm Assessment & Plan Assessment: 88 yo F w/ hx of AF, dCHF, AVR, and CABG presents with CHF exacerbation. Plan: 1. Acute exacerbation of chronic diastolic heart failure - Patient has had 2 weeks of progressive MUSTAFA, orthopnea, and lower extremity edema. She saw Dr. Galaviz on 01/03 and was noted to be euvolemic at that time. The trigger for her decompensation is unclear as she denies recent illness or chest pain to suggest ACS. BNP elevated at 3830 and troponin indeterminate at 0.09. Worsening anemia may be contributing to her symptoms. - Admit to PCU - Monitor on telemetry, trend cardiac enzymes - Furosemide 20 mg IV BID - TTE to evaluate cardiac and valvular function - Cardiac diet, daily weights, monitor I/Os - Will consult cardiology 2. Indeterminate troponin - I suspect related to above, will trend enzymes. 3. Acute on chronic HRF - Currently requiring ~3 L/min O2, usually requires 1-2 L/min at baseline for unclear reasons. Worsening most likely 2/2 CHF. - Treat CHF as above - Wean O2 as able 4. Normocytic anemia - Hgb 9.1 on admission, which is lower than previous values. Patient denies signs of bleeding including BRBPR and melena. This may be contributing to dyspnea and fatigue. - Check ferritin and B12 - Monitor CBC 5. AF - In NSR on admission, on sotalol and warfarin with therapeutic INR. - Continue home meds, monitor daily INR 6. Hx CAD - S/p CABG 7. Hx bioprosthetic AVR 8. HTN - Continue home meds Diet - Cardiac Code - Full Ppx - warfarin Dispo - Admit under observation status
[2018-01-17 06:34] LABS: PLATELET COUNT 210 10^3/uL (150-400)
[2018-01-17 06:42] LABS: INR 2.09 (0.83-1.16); PROTIME(PATIENT) 23.5 SEC (12.0-15.0)
[2018-01-17] MEDS: FUROSEMIDE 20 MG/2 ML VIAL IVP SCH ×2 (08:40→15:35)
--- NOTE | 2018-01-17 12:10 | ECHO ---
[email or web address] [address] Main: [phone] Fax: Transthoracic Echocardiogram Name: DANELLE BERG MR#: [id number] Study Date: 01/17/2018 Study Time: 10:22 AM Date of : 1930 Age: 88 year(s) Height: 157.5 cm (62 in.) Weight: 68.95 kg (152 lb.) BSA: 1.7 m2 Gender: Female Examination: Echo Indication: CHF exacerbation/AVR, previous echo 09/17 Image Quality: Contrast: Requested by: Carl Diaz BP: / Heart Rate: Rhythm: Indication: CHF exacerbation/AVR, previous echo 09/17 Procedure Staff Interventional Neuroradiologist: Rosemarie Soler [facility] Reading Physician: Pal Roche MD Requesting Provider: Conclusions: No pericardial effusion. Concentric left ventricular hypertrophy. Ejection fraction 65-70%. Left atrial enlargement. moderate mitral regurgitation. Prosthetic aortic valve with mean gradient of 11 mm of mercury. Measurements: Chambers Valvular Assessment AV/MV Valvular Assessment TV/PV Normal Normal Normal Name Value Range Name Value Range Name Value Range Ao Ban (MM): 3.5 cm (2.2 cm-3.7 AV meanP mmHg ( - ) TR Vmax: 3.11 mm/s ( - ) cm) LVOT Vmax: 0.92 m/s (0.7 m/s-1.1 TR PGmax: 39 mmHg ( - ) IVSd (2D): 1.0 cm (0.6 cm-1.1 m/s) syst. PAP: 44 mmHg ( - ) cm) CAROLA (VTI): 1.2 cm ( - ) LVDd (2D): 5.2 cm (3.9 cm-5.3 MV E Vmax: 1.50 m/s ( - ) cm) MV A Vmax: 0.81 m/s ( - ) LVDs (2D): 3.2 cm (2.1 cm-4 MV E/A: 1.85 ( - ) cm) MV meanP mmHg ( - ) LVPWd (2D): 0.7 cm ( - ) MVA (Vmax): 1.3 m/s ( - ) LVOTd 1.8 cm 1.8 cm mm LVEF (MOD4): 71 % (>=55 %) EF Range: 65-70 % Continued Measurements: Chambers Valvular Assessment AV/MV Valvular Assessment TV/PV Name Value Name Value Name Value LADs: 4.3 cm MV Annulus: 3.0 cm CVP (est.): 5 mmHg LADs Lon.8 cm MV E/E' Septal: 28.50 LA Area: 29.7 cm2 MV E/E' Lateral: 25.20 MV VTI: 52.00 cm MR ERO: 0.080 cm2 Patient: DANELLE BERG Study Date: 01/17/2018 Page 1 of 2 10:22 AM MR PISA radius: 4 mm MR Reg. Volume: 17 ml MR Reg. Fraction: 5 % Findings: Left Ventricle: Normal size left ventricle. Mild concentric LV hypertrophy. Normal global systolic LV function. The ejection fraction is estimated to be 65-70 %. No regional wall motion abnormality. Diastolic dysfunction is present. . Right Ventricle: Normal size right ventricle. Left Atrium: The left atrium is mildly to moderately dilated. Right Atrium: The right atrium is normal in size. Mitral Valve: Mild-moderate mitral annular calcification. Moderate mitral valve regurgitation is present. Aortic Valve: Mild aortic valve regurgitation is present. The aortic valve is a bioprosthesis. AV max PG is 20mmHG. AV mean PG is 11mmHG.. Tricuspid Valve: The tricuspid valve is normal in appearance and function. Mild tricuspid regurgitation is present. Pulmonic Valve: The pulmonic valve is normal in appearance and function. Mild pulmonic valve regurgitation is noted. Aorta: The aorta is normal. Pericardium: No pericardial effusion. (No Signature Object) Patient: DANELLE BERG Study Date: 01/17/2018 Page 2 of 2 10:22 AM [id number]
--- NOTE | 2018-01-17 14:40 | HOSPPROG ---
Hospitalist Progress Note Assessment/Plan: # acute on chronic dCHF - - cont lasix IV - cont sotalol, losartan - elevated trop likely demand # a-fib - NSR now - cont sotalol, warfarin # hx CAD s/p CABG # hx bioprosthetic AVR # normocytic anemia - check TIBC, Fe, recheck hgb tomorrow # depr - trintellix Objective: Vital Signs Temp Pulse Resp BP Pulse Ox 36.4 C 63 17 136/54 H 98 01/17/18 11:21 01/17/18 11:21 01/17/18 11:21 01/17/18 11:21 01/17/18 11:21 Laboratory Results 01/17/18 06:25 01/17/18 06:25 01/16/18 01/17/18 01/18/18 05:59 05:59 05:59 Intake Total 0 686 Output Total 800 Balance 0 -114 PT 23.5 SEC (12.0-15.0) H 01/17/18 06:25 INR 2.09 (0.83-1.16) H 01/17/18 06:25 ICD10 Worksheet Patient Problems: Problems Problem Status Onset CHF (congestive heart failure) Acute Bronchitis Acute Chronic Disease Mgmt/Transitional Care Acute Depression Acute Hyponatremia Acute Hypoxia Acute Pneumonia Acute
--- NOTE | 2018-01-17 14:57 | ASMTCMCOM ---
CM Note CM Note Notes: 01/17/2018 Case Management Note Pt admitted for CHF. Pt resides at the [facility]. Pt is current with [facility] RN PT and [facility] RN. Pt has home O2 through [facility]. There are no PT or OT evals ordered at this time. Case Management d/c poc: anticipating resuming services with [facility] upon discharge. Case Management to follow. Date Signed: 01/17/2018 02:56 PM Electronically Signed By:Bethany Myers RN
[2018-01-17] MEDS ORDERED: WARFARIN SODIUM 1 MG TAB PO SCH (16:00)
--- NOTE | 2018-01-17 19:43 | GCON ---
[f rep st] CONSULTATION CARDIOLOGY CONSULTATION DATE OF CONSULTATION: 01/17/2018 REFERRING PHYSICIAN: Carl Gilliland MD INDICATION FOR CONSULTATION: Shortness of breath. HISTORY OF PRESENT ILLNESS: The patient is a pleasant 88-year-old female, well known to [facility], who is primarily followed by Dr. Kristal Galaviz and was last seen on January 03, 2018. She has a known history of paroxysmal atrial fibrillation on rhythm control strategy with sotalol 40 mg p.o. b.i.d. and chronic anticoagulation with Coumadin; history of diastolic congestive heart failure; status post bioprosthetic aortic valve replacement and coronary artery bypass surgery; who presented to [facility] early this morning with complaints of increasing shortness of breath and dyspnea on exertion, as well as orthopnea, coupled with new onset of lower extremity edema. She does not check her weights daily at home and does not know if she has been gaining weight, although she does admit that her pants have felt tighter. She has no complaints of exertional chest pain or chest pressure. She denies complaints of palpitations, near syncope, or syncope. Initial lab work demonstrated an elevated BNP at 3830. No previous BNP for comparison. She is currently not on diuretic therapy. Since her admission, she has been given IV Lasix and she has noticed a marked increase in urine output and marked improvement in her symptoms of shortness of breath. Currently, at the time of my exam, she is resting comfortably, maintaining sinus rhythm. PAST MEDICAL HISTORY: 1. Coronary artery disease status post CABG. 2. History of aortic stenosis, status post bioprosthetic aortic valve replacement. 3. History of diastolic congestive heart failure. 4. Paroxysmal atrial fibrillation, rhythm control and anticoagulation strategy. 5. Hypertension. MEDICATIONS ON ADMISSION: Include: 1. Atorvastatin 20 mg daily. 2. Coumadin 0.5 mg p.o. daily. 3. Vitamin D 5000 daily. 4. Cozaar 100 mg daily. 5. Norvasc 5 mg daily. 6. Sotalol 40 mg p.o. b.i.d. ALLERGIES TO MEDICATIONS: Sulfa. SOCIAL HISTORY: She is a lifelong nonsmoker. She lives in assisted living facility. REVIEW OF SYSTEMS: As stated above. The remainder of 10-point review of systems is unremarkable. DATA RESULTS: White blood cell count 9.8, hemoglobin 8.2, hematocrit 25.3, platelets 210. INR 2.07. Magnesium 1.7. Sodium 139, potassium 4.2, chloride 101, bicarb 27, BUN 28, creatinine 0.8. Troponin initially of 0.090, trending to 0.109. N-terminal proBNP 3830. CTA demonstrated no evidence of pulmonary embolism. There was evidence of bilateral pleural effusion. Echocardiogram demonstrates LVEF of 60% to 65%. Bioprosthetic aortic valve gradients are within normal limits. No evidence of pericardial effusion. PHYSICAL EXAMINATION: GENERAL: She is awake, alert, oriented, and appropriate , in no apparent distress. VITAL SIGNS: Blood pressure 136/54, heart rate of 63 in sinus rhythm, respiratory rate of 17, oxygen saturation 98 on 4 L nasal cannula, temperature 36.4. NECK: There is no evidence of JVP or carotid bruits. LUNGS: Clear to auscultation bilaterally. CARDIAC: S1, S2. She does have a 2/6 systolic murmur at the right sternal border and 2/6 systolic murmur at the apex, consistent with mitral regurgitation. PMI is not displaced. ABDOMEN: Soft, nontender, nondistended. There is no evidence of shifting dullness or fluid wave. She has trace bilateral ankle edema. DATA: EKG demonstrating normal sinus rhythm at 68 beats per minute with normal axis. First-degree AV block, with W[place] interval of 208 msec. No evidence of ischemia or infarction. IMPRESSION: 1. New onset of shortness of breath and dyspnea with elevated BNP of 3830. 2. Diastolic congestive heart failure. 3. Atrial fibrillation with rate control and anticoagulation strategy. 4. History of coronary artery disease, status post coronary artery bypass graft. 5. History of bioprosthetic aortic valve with normal gradients on echocardiogram performed today. 6. Anemia with hemoglobin of 8.2, hematocrit 25.3. 7. Mildly elevated troponin at 0.109, which I think may represent demand ischemia in the setting of exacerbation of diastolic congestive heart failure coupled with anemia. PLAN: 1. Would recommend continued IV Lasix today with plan to convert to oral Lasix 20 mg once daily tomorrow. 2. Would continue current medications of sotalol 40 mg p.o. b.i.d. and anticoagulation with Coumadin. INR is therapeutic. 3. We will closely monitor blood pressure with the addition of Lasix. 4. The patient will require workup for anemia, which is most likely a contributor to her symptoms. 5. We will continue to follow along with her care. 45 minutes spent coordinating care. /[id number]/MODL RONNIE
[2018-01-17] MEDS: SOTALOL HCL 80 MG TAB PO SCH (20:25)
[2018-01-17] MEDS: DOCUSATE SODIUM 100 MG CAP PO SCH (20:25)
[2018-01-17] MEDS ORDERED: Vortioxetine Hydrobromide [Trintellix] 10 MG PO SCH (21:00)
[2018-01-17] MEDS ORDERED: GABAPENTIN 100 MG CAP PO SCH (21:00)
[2018-01-17] MEDS ORDERED: MIRTAZAPINE 15 MG TAB PO SCH (21:00)
[2018-01-17] MEDS ORDERED: MELATONIN 3 MG TAB PO SCH (21:00)
[2018-01-18 04:02] LABS: PLATELET COUNT 210 10^3/uL (150-400)
[2018-01-18 04:10] LABS: INR 1.8 (0.83-1.16)
[2018-01-18] MEDS ORDERED: LEVOTHYROXINE 150 MCG TAB PO SCH (06:00)
[2018-01-18] MEDS: FUROSEMIDE 20 MG/2 ML VIAL IVP SCH (08:39)
[2018-01-18] MEDS: SOTALOL HCL 80 MG TAB PO SCH (08:39)
[2018-01-18] MEDS: DOCUSATE SODIUM 100 MG CAP PO SCH (08:40)
[2018-01-18] MEDS ORDERED: ATORVASTATIN CALCIUM 20 MG TAB PO SCH (09:00)
[2018-01-18] MEDS ORDERED: amLODIPine BESYLATE 5 MG TAB PO SCH (09:00)
[2018-01-18] MEDS ORDERED: LOSARTAN POTASSIUM 50 MG TAB PO SCH (09:00)
--- NOTE | 2018-01-18 09:36 | PDCARPN ---
Cardiology Progress Note Assessment/Plan: Assessment: 1. SOB/MUSTAFA 2. Diastolic Congestive Heart Failure 3. Essential HTN 4. Hx of CAD 5. Bioprosthetic AVR with normal gradients 6. Hypoxia with O2 of 94% on 3L nc Plan: -Increase Norvasc to 10 mg daily -Home on Lasix 20 mg daily -Continue all other out patient cardiac medications -Out patient Labwork in 2 weeks: BMP, BNP, Mg (labs ordered) -Follow up with Janice Galeas NP on January at 12:45 with 12:30 check in -Pt is scheduled to see Dr Tenorio in 3 months 01/18/18 09:26 Subjective: Mrs. Fuller is feeling well this AM. SOB has resolved. Ankle edema has nearly completely resolved. Weight is 67 Kg (69.1 on admission). K of 4.7 and Cr0.9. O2 sat of 94% on 3L nasal cannula. Remains in NSR on telemetry. Reviewed/Discussed With: hospitalist Time Spent With Patient: 20 min Objective: Vital Signs (8 Hrs) Temp Pulse Resp BP Pulse Ox 01/18/18 06:06 36.4 C 54 L 17 151/45 H 94 01/18/18 04:00 96 Intake/Output (24 Hrs) 01/17/18 01/18/18 01/19/18 05:59 05:59 05:59 Intake Total 0 1236 400 Output Total 1700 200 Balance 0 -464 200 Intake: Oral (ml) 0 1236 400 Output: Urine (ml) 1700 200 Bedside Commode 800 Toilet 900 200 Other: Weight 69.1 kg 67.2 kg 67 kg Number of Voids Bedside Commode 1 Toilet 1 1 Number of Stools Toilet 1 Result Diagrams: 01/18/18 03:28 01/18/18 03:28 Cardiac Labs: Cardiac Lab Results (72 Hrs) 01/17/18 06:25 Troponin I 0.109 H - Physical Exam Constitutional: WDWN Ears, Nose, Mouth, Throat: moist mucous membranes Cardiovascular: regular rate and rhythm, systolic murmur Respiratory: clear to auscultate bilat Neurologic: AAOx3, CN II-XII grossly intact Psychiatric: cooperative, interactive ICD10 Worksheet Patient Problems: Problems Problem Status Onset CHF (congestive heart failure) Acute Chronic Disease Mgmt/Transitional Care Acute Bronchitis Acute Hypoxia Acute Pneumonia Acute Hyponatremia Acute Depression Acute
--- NOTE | 2018-01-18 09:54 | PDIAF ---
- Diagnosis Diagnosis: Diastolic CHF Code Status: Full Code - Medication Management Discharge Medications: Medications to Continue on Transfer Atorvastatin Calcium [Lipitor 20 mg (*)] 20 mg PO DAILY 07/14/14 [Last Taken 05/18] Docusate Sodium [Colace 100 MG (*)] 100 - 200 mg PO BID 07/14/14 [Last Taken 11:00] Melatonin [Melatonin 3 MG (*)] 3 mg PO HS 07/14/14 [Last Taken 12/07/17] Warfarin Sodium [Coumadin 1MG (*)] 1.5 mg PO DAILY16 10/04/15 [Last Taken ] Sotalol HCl [Betapace 80 MG (*)] 40 mg PO BID #60 tab 10/06/15 [Last Taken 12/08 09:00] Ergocalciferol [Vitamin D2 (*)] 50,000 unit PO Q30D 09/22/17 [Last Taken ] Gabapentin [Neurontin 100 MG (*)] 200 mg PO HS #30 cap 12/20/17 [Last Taken Unknown] Levothyroxine [Synthroid 150 mcg (*)] 150 mcg PO DAILY AT 6AM #30 tab 12/20/17 [ Last Taken Unknown] Mirtazapine 15 mg PO HS #30 tablet 12/20/17 [Last Taken Unknown] Losartan Potassium [Cozaar 50 mg (*)] 50 mg PO DAILY 01/17/18 [Last Taken Unknown] Vortioxetine Hydrobromide [Trintellix] 10 mg PO HS 01/17/18 [Last Taken Unknown] Furosemide [Lasix 20 MG (*)] 20 mg PO DAILY #30 tab 01/18/18 [Last Taken Unknown ] amLODIPine BESYLATE [Amlodipine Besylate] 10 mg PO DAILY #30 tablet 01/18/18 [ Last Taken Unknown] Discharge Medications: Refer to the Discharge Home Medication list for PRN reason. - Orders Services needed: Home Care, Registered Nurse (behavioral), Physical Therapy Home Care Face to Face: I certify that this patient was under my care and that I had the required [id number] encounter meeting the encounter requirements on the discharge day. My findings support the fact that the patient is homebound as defined in Home Care Face to Face Continued: CMS Chapter 7 Medicare Benefits Manual 30.1.1 , The condition of the patient is such that there exists a normal inability to leave home and consequently, leaving home would require a considerable and taxing effort. Isolation Type: None Diet Recommendation: no restrictions on diet - Follow Up Care Current Providers and Referrals: Patient,NotPresent [Unknown] - As per Instructions Janice Galeas PA [Physician Gluer Machine Setup Operator] - (February 24, 2018 at 12:45 with 12:30 check in )
--- NOTE | 2018-01-18 10:34 | ASMTLACE ---
VLADIMIR Length of stay for Answers: 1 day current admission Acuity / Level of Answers: No Care: Did the patient have an inpatient admission? Comorbidities - select Answers: Coronary Artery Disease all that apply Diabetes (uncontrolled or controlled) Other Notes: HTN, hyperlipidemia, hy anshu atremia, SIADH, severe mitral regurg, anemia, h/o CAB G # of Emergency department Answers: 1-2 visits in the last 6 months Social determinants Answers: Mental health diagnosis (anxiety, depression, pers onality disorders, etc.) Score: 9 Date Signed: 01/18/2018 10:33 AM Electronically Signed By:JOSEMANUEL Gonzalez
[2018-01-18] MEDS ORDERED: PNEUMOC 13-VAL CONJ-DIP CRM/PF 0.5 ML SYR IM ONE (11:05)
[2018-01-18 12:26] VITALS: BP 150/42; PULSE 69; RESP 22; TEMP 97.9; O2SAT 100
--- NOTE | 2018-01-18 14:10 | GDS ---
[f rep st] DISCHARGE SUMMARY ALL CONSULTATIONS: Cardiology. ALL DIAGNOSES: 1. Acute on chronic diastolic congestive heart failure. 2. Atrial fibrillation on anticoagulation. 3. History of coronary artery disease, status post coronary artery bypass graft. 4. History of bioprosthetic aortic valve replacement. 5. Normocytic anemia, not entirely clear cause. HOSPITAL COURSE: 88-year-old female, admitted with acute on chronic diastolic congestive heart failu re. She received about 36 hours of intravenous furosemide. She has had significant improvement in h er lower extremity edema. Cardiology has been involved. We feel though this is likely just progress ion of her underlying diastolic CHF as opposed to anything more acute. On the day of discharge, she still has some mild ankle edema. Her weight is down 2 kg from her admission weight. She is 67 kg on the day of discharge. She will be discharged with furosemide 20 mg once a day. Her potassium is ok ay. She has not been started on potassium supplementation at this point. She will have outpatient l abs drawn in 2 weeks. In terms of her hypertension, her blood pressures have been elevated. Her amlodipine was increased f rom 5 mg daily to 10 mg daily. She was also started on furosemide. She will continue her losartan. Her atrial fibrillation has been well controlled. She has been in sinus rhythm. She will continue s otalol as well as warfarin. She has a followup in the anticoagulation clinic in a week or so. Her anemia is slightly worse than previous. It has been stable on subsequent checks. Her iron satur ation is slightly low at 18%; however, TIBC is normal. Ferritin is normal. I have not started her o n iron supplementation. Would consider a followup with Gastroenterology for iron deficiency workup. FOLLOWUP: 1. Labs including basic metabolic panel, BNP in 2 weeks. 2. Follow up with anticoagulation clinic. 3. Follow up with the primary care physician for anemia. 4. Janice Galeas on February 24. /[id number]/MODL
--- NOTE | 2018-01-19 12:02 | ASDISCHSUM ---
Discharge Information Plan Status:Home with Home Health Medically Cleared to Leave: Discharge Date:01/18/2018 01:20 PM CM D/C Disposition: ADT D/C Disposition:[id number] Projected Discharge Date:01/18/2018 11:00 AM Transportation at D/C: Discharge Delay Reason: Follow-Up Date:01/18/2018 11:00 AM Discharge Slot: Final Diagnosis: Placement Information Referral Type:*Home Health Care Services Referral ID:[id number] Provider Name:[facility] ([facility]) Address 1:[address] [address] Address 2: City:[place] Selection Factors: State:[place] Referral Type:Assisted Living Residence Referral ID:[id number] Provider Name:Stephanie Mendieta [place] Address 1:[address] Phone Number: Address 2: Fax Number: City:[place] Selection Factors: State:[place] Patient Contact Information Contact Name:EDISON Relationship:Son Address: City: [facility] Phone: [facility] Code: Email: Financial Information Financial Class:Medicare Primary Plan Desc:MEDICARE OUTPATIENT Primary Plan Number:[id number] Secondary Plan Desc: OUT OF [facility] Secondary Plan Number:[id number] Assessment Information LACE LACE Length of stay for Answers: 1 day current admission Acuity / Level of Answers: No Care: Did the patient have an inpatient admission? Comorbidities - select Answers: Coronary Artery Disease all that apply Diabetes (uncontrolled or controlled) Other Notes: HTN, hyperlipidemia, hy anshu atremia, SIADH, severe mitral regurg, anemia, h/o CAB G # of Emergency department Answers: 1-2 visits in the last 6 months Social determinants Answers: Mental health diagnosis (anxiety, depression, pers onality disorders, etc.) Score: 9 Date Signed: 01/18/2018 10:33 AM Electronically Signed By:JOSEMANUEL Goznalez [facility] CM Progress Note CM Note CM Note Notes: 01/17/2018 Case Management Note Pt admitted for CHF. Pt resides at the [facility]. Pt is current with [facility] RN PT and [facility] RN. Pt has home O2 through [facility]. There are no PT or OT evals ordered at this time. Case Management d/c poc: anticipating resuming services with [facility] upon discharge. Case Management to follow. Date Signed: 01/17/2018 02:56 PM Electronically Signed By:Bethany Myers RN Case Management Discharge Plan Note Case Management Discharge Discharge Order Complete? Answers: Yes Patient to Obtain Answers: via Family Medications Transportation Arranged Answers: Family/Friends EMTALA Complete Answers: No Case Management Transport Answers: No Form Complete Faxed Final Orders Answers: Yes Agency/Facility Transfer Answers: Yes Report Printed & Faxed to Receiving Agency Family Notified Answers: No Discharge Comments Notes: spoke w/ Dr. Malloy and ALDAIR Valdez regarding d/c POC. Pt is being discharged today. Pt will resume her services w/ [facility]. DC orders sent to [facility]. CM available for changes. Plan: Critical access hospital; PT, RN, RN Date Signed: 01/18/2018 10:06 AM Electronically Signed By:JOSEMANUEL Gonzalez Intervention Information Intervention Type:*GARCIA-Signed Date of Service:01/17/2018 10:41 AM Patient Type:Observation Staff Member:Kiana Lamas Hours: Discipline: Severity: Comment:
== END 2018-01-18 13:20 | disposition home health service (06) ==
LOC: EDUNIT# → F2W 01-17 03:00
PROVIDERS: ADMIT Student in an Organized Health Care Education/Training Program; ATTEND Student in an Organized Health Care Education/Training Program
DX: I50.23 Acute on chronic systolic (congestive) heart failure (principal); I48.91 Unspecified atrial fibrillation; D64.9 Anemia, unspecified; I25.10 Atherosclerotic heart disease of native coronary artery without angina pectoris; I11.0 Hypertensive heart disease with heart failure; E03.9 Hypothyroidism, unspecified; F41.8 Other specified anxiety disorders; Z79.01 Long term (current) use of anticoagulants; Z95.1 Presence of aortocoronary bypass graft; Z95.4 Presence of other heart-valve replacement; Z88.2 Allergy status to sulfonamides
CPT/HCPCS: 71045; 71275; 93005; 93306; 96374; 99285; G0378; J1940; Q9967; 82607-90

== ENCOUNTER → 2018-09-29 | Outpatient (CLI) | payer OTHER, BC | LOC: BHFA 14:00 | PROVIDERS: ATTEND Internal Medicine Cardiovascular Disease | DX: Z95.2 Presence of prosthetic heart valve (principal) ==

== ENCOUNTER → 2018-10-26 | Outpatient (CLI) | payer OTHER, BC | LOC: BHFA 11:30 | PROVIDERS: ATTEND Internal Medicine Cardiovascular Disease | DX: I48.0 Paroxysmal atrial fibrillation (principal); I25.10 Atherosclerotic heart disease of native coronary artery without angina pectoris; I34.0 Nonrheumatic mitral (valve) insufficiency ==